=== PATIENT | female | born 1940 | race Caucasian/White ===

== ENCOUNTER → 2017-11-21 08:23 | Outpatient (BNVA) | payer MEDICARE, SELFPAY | PROVIDERS: Visit Provider Surgery | DX: Z12.11 Encounter for screening for malignant neoplasm of colon (principal); I10 Essential (primary) hypertension | CPT/HCPCS: 99213 ==

== ENCOUNTER 2017-12-08 06:53 | Day surgery (SDC) | payer MEDICARE, SELFPAY ==
--- NOTE | 2017-12-08 06:48 | W.COLOREPORT ---
Colonoscopy Report Date of procedure: 12/08/17 Pre-op diagnosis general: Screening Colonoscopy Post-op diagnosis procedure note: other (Rae-diverticulosis and internal hemorrhoids) Procedure: Colonoscopy Surgeon: Wanda Mckeon Anesthesia proc note operative: MAC (Isacc Galan CRNA) Estimated blood loss (mL): 0 Pathology: none sent Complications: None Disposition: same day Indications: Mrs. Cunningham is here for a screening colonoscopy. Her last colonoscopy was in 2007 and was normal. Risks, benefits and complications were reviewed in the office and in SDS. She had no questions and wished to proceed. Prep: Miralax/Dulcolax Procedure Start Time: 08:09 Procedure End Time: 08:36 Retraction Time: 13 minutes Findings: Rae diverticulosis and grade 1 internal hemorrhoids Procedure Description: After informed consent was obtained the patient was taken to the procedure room and placed in a left decubitous position. Monitors were applied and a time out was done. The patients name, date of , procedure, allergies to medications and metal in their body was reviewed. The patient was then sedated. Once sedated and comfortable a rectal exam was done. External exam was normal. Internal exam revealed a normal sphincter tone and no palpable masses. The scope was then introduced and retrofelexed. Grade 1 internal hemorrhoids were identified. The scope was then advanced to the cecum with some difficulty due to her diverticulosis. The TI and appendiceal orifice were identified. The prep was adequate. The scope was then slowly retracted over 13 minutes back into the rectum. The scope was removed and the patient was woken up and taken back to Same day surgery in stable condition. The patient tolerated the procedure well and there were no immediate complications. Follow up: The patient should not need any more scheduled Colonoscopies unless she develop changes in bowel habits or other new gastrointestinal complaints.
--- NOTE | 2017-12-08 06:51 | PDOC.DSDIS_ITS ---
Discharge Plan Disposition Patient Disposition: HOME Condition: Good Discharge Details Reason For Visit: Screening Colonoscopy Attending Provider: Wanda Mckeon Primary Care Provider: Tessa Mehta Home Meds and New Rx's Prescriptions: Continue multivitamin [Multi-Day] 1 EACH tablet 1 ea PO DAILY RF: 0 hydrochlorothiazide 50 MG tablet 50 mg PO DAILY RF: 0 meloxicam 15 MG tablet 15 mg PO DAILY RF: 0 ascorbic acid (vitamin C) [Vitamin C] 500 MG tablet 500 mg PO DAILY RF: 0 omeprazole [Prilosec] 20 MG capsule,delayed release(DR/EC) 20 mg PO DAILY RF: 0 zolpidem [Ambien] 5 MG tablet 10 mg PO HS RF: 0 triamcinolone acetonide 15 GM cream 15 gm Topical PRN PRNRF: 0 clotrimazole [Lotrimin AF] 24 GM cream 24 gm Topical PRN PRNRF: 0 omega-3 fatty acids-fish oil 1 EACH capsule 1 ea PO DAILY RF: 0 fluticasone 16 GM spray,suspension 16 gm NS PRN PRNRF: 0 acetaminophen 500 mg Capsule 500 mg PO Q6H PRNRF: 0 Discharge Instructions Instructions: Colonoscopy (DC), Diverticulosis (DC), Hemorrhoids (DC) Additional Instructions: Findings: Diverticulosis Follow up: as needed New medications: none Please call if you develop: fevers >101.5 Nausea or Vomiting Abdominal pain that is not transient 1. Because there will be medication in your system for the next 24 hours, you may feel a little sleepy. Your coordination will be affected. Therefore: a. Do not drive or operate dangerous equipment for 24 hours. b. Do not drink alcohol beverages for 24 hours (not even beer). c. Plan to go home and rest for the day. 2. Generally there are no restrictions on your activity after a day or so has gone by, but you may feel a bit fatigued for a few days. 3 After you arrive home you may have a light meal and return to a normal diet as you can tolerate it without feeling sick to your stomach. 4. After surgery, you may feel pain or discomfort. This should be only transient , but if it persists please contact your doctor. 5. If there are any questions regarding the findings of your procedure, please feel free to contact your doctor. 6. If you are unable to contact your doctor with a problem, contact the hospital at [phone]. 6. Continue all your regular medications unless directed otherwise. I understand the above instructions and have no questions. Signature of Patient or Responsible Adult Escort Date/Time Name of Responsible Adult Escort Signature of Nurse Date/Time Activity:: Activity as Tolerated Diet:: high fiber diet Discharge Orders Discharge Orders: Discharge Order (Routine); Ordered 12/08/17 Ordered By: Wanda Mckeon
[2017-12-08 07:00] VITALS: BP 162/101; PULSE 91; RESP 18; TEMP 37.1; O2SAT 98
[2017-12-08] MEDS: Lactated Ringers 1,000 ML 80 ML IV (07:30)
[2017-12-08 09:15] VITALS: BP 161/83; PULSE 79; RESP 16; TEMP 36.7; O2SAT 97
== END 2017-12-08 09:30 | disposition home or self-care (01) ==
LOC: SUR 06:53
PROVIDERS: PCP Physician Assistant Medical; Visit Provider Surgery
PROC: 0DJD8ZZ Inspection of Lower Intestinal Tract, Via Natural or Artificial Opening Endoscopic (ICD-10-PCS; CPT 45378; principal; 2017-12-08 08:15)
DX: Z12.11 Encounter for screening for malignant neoplasm of colon (principal); I10 Essential (primary) hypertension; K21.9 Gastro-esophageal reflux disease without esophagitis; K64.0 First degree hemorrhoids; K57.30 Diverticulosis of large intestine without perforation or abscess without bleeding
CPT/HCPCS: G0121

== ENCOUNTER 2018-03-17 21:53 | Outpatient (REF) | payer MEDICARE, SELFPAY ==
[2018-03-17 22:46] LABS: BUN 27 mg/dL (7-18); CREATININE 0.95 mg/dL (0.55-1.02); Estimated GFR 57.35 (mL/min/1.73m2)
== END 2018-03-17 22:13 ==
LOC: LBN 21:53
PROVIDERS: PCP Physician Assistant Medical; Visit Provider Otolaryngology Otolaryngology/Facial Plastic Surgery
DX: Z01.812 Encounter for preprocedural laboratory examination (principal); R69 Illness, unspecified
CPT/HCPCS: 84520; 82565

== ENCOUNTER 2018-03-24 01:07 | Outpatient (CLI) | payer MEDICARE, SELFPAY ==
[2018-03-24] MEDS: Gadoterate meglumine 20 ML VIAL 16 ML IVP (09:53)
--- NOTE | 2018-03-24 10:10 | DI.MRI_ITS ---
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 No priors. There is prominence of the ventricles and sulci consistent with the patient's age. There are areas of increased signal seen in the white matter on the T 2 and FLAIR images consistent with small vessel ischemic disease. The diffusion weighted images show no evidence of an acute infarct. No intracranial hemorrhage is seen. No intracranial mass is seen. No enhancing lesions are seen within the brain. Specifically no mass or abnormal enhancement is seen in the region of the internal auditory canals or cerebellar pontine angles. There is no acute midline shift or mass effect. The ventricles are intact. The basilar cisterns are patent. There is a normal flow void seen in the [employer]. IMPRESSION: 1. No evidence of an intracranial mass or enhancing lesion. 2. Cerebral atrophy and small vessel ischemic disease consistent with the patient's age.
== END 2018-03-24 01:27 ==
PROVIDERS: PCP Physician Assistant Medical; Visit Provider Otolaryngology Otolaryngology/Facial Plastic Surgery
DX: H90.5 Unspecified sensorineural hearing loss (principal); H93.19 Tinnitus, unspecified ear; G31.1 Senile degeneration of brain, not elsewhere classified
CPT/HCPCS: 70553

== ENCOUNTER 2018-07-14 16:53 | Inpatient (IN) | payer MEDICARE, SELFPAY ==
--- NOTE | 2018-07-14 11:22 | ROE_ITS ---
DATE OF PROCEDURE: July 14, 2018 PREOPERATIVE DIAGNOSIS: Peritonitis and ruptured jejunal diverticulum. POSTOPERATIVE DIAGNOSIS: Ruptured jejunal diverticulum and mesenteric abscess. SURGEON: Elvi Maria D.O. ELECTROPHYSIOLOGY SCIENTIST: Alirio Calhoun ANESTHESIA: General. ESTIMATED BLOOD LOSS: 50 cc's DRAINS: No drain was placed. SPECIMEN: Small bowel. CONDITION: The patient tolerated the procedure well without complications, transferred to the recovery room in stable condition. INDICATION FOR PROCEDURE: Ms. Cunningham is a 77-year-old female who presents to the ER with peritonitis. No signs of sepsis or shock. She did have a CT scan without oral contrast, which did show a perforated diverticulum with significant surrounding inflammatory changes; no abscess. She does have significant sigmoidal diverticula, but there is no sign of infection from these. I did review the CT with the reading radiologist, and he had reviewed it as well with another colleague to ensure accuracy. On examining the patient, she does have diffuse significant peritonitis. We discussed her diagnosis and the treatment is operative management with small bowel resection. We discussed what she could expect during the surgery, her recovery time and risks. Risks, including infection, pneumonia, blood clots, anastomotic failure, ventral hernia, complications from anesthesia - because she is a little bit older there's always a risk for CT or CVA or other unforetold complications. The patient is in agreement. DESCRIPTION OF PROCEDURE: The patient is brought to the operative suite and placed in the supine position. Anesthesia is administered per the Department of Anesthesia. We had tried to place an epidural, but this was unsuccessful because of significant arthritis of the spine. General anesthesia is then placed. Patient has good IV access. She received preop antibiotics. NG tube and Kamara catheter are placed. She was prepped and draped in the usual sterile fashion using a ChloraPrep scrub solution. A time-out is performed. A #10 blade is used to make a 3-inch midline incision from just below the umbilicus. She has had a remote tubal ligation in the past. Electrocautery was used to provide hemostasis and dissect down to the deeper tissues. Once the muscle is encountered, it is split in the midline. The peritoneum is elevated and entered sharply. There is no free air noted. There is a very small amount of seropurulent drainage. She does have a few omental adhesions from her previous tubal; these are taken down with cautery. The abdomen is explored. The liver is palpated and there is no sign of metastatic disease. NG tube is in good position. She has a significant amount of stool in the transverse colon. She has severe amount of diverticula within the sigmoid colon. The rectum and sigmoid colon is directly visualized. The colon is pink and healthy. There is no edema. There is no inflammation or purulent draining in this area. There is no sign of infection that would be ensuing from the colon. The appendix is normal. Ovaries and uterus are atrophic. The small bowel is then run from the ligament of Treitz to the cecum. At about 15 cm in the jejunum she does have an area of acute inflammatory change with redness and swelling within the small bowel but particularly within the mesentery and there does appear to be a small abscess in the mesentery. Again there is some localized purulent drainage and purulent membrane around the small bowel. About 5 cm distal from the first jejunal diverticula, she has a second jejunal diverticula. This second jejunal diverticula does not appear to be ruptured or infected, but is removed as well. it is decided to remove both diverticula. The omentum is packed away; the small bowel is isolated. A rent is placed in the mesentery proximally and distally. The ROSALINE is placed and fired to incise the small bowel. The mesentery is then ligated using the LigaSure. She does have some enlarged nodes within the mesentery. Again there was a small abscess within the mesentery as well; this was excised along with the mesentery. The specimen is passed off the field. The proximal and distal limbs of the jejunum were brought together. Again they are isolated on the field with towels to prevent gastric contamination. The antimesenteric ends l are brought together. The tips of the sutures on the staple line are excised and a limb of the ROSALINE is placed on either end and they are brought together and fired, creating anastomosis. The ROSALINE is removed. The mucosa of the remaining defect is then elevated with Allis' and the anastomosis was completed with a TA-60. All instruments and devices involving creating the anastomosis are passed off the field. Towels are removed. Sponges are removed. New towels are placed. Gloves are changed by all the participants involved. The staple line ends are then over-sewn/reinforced with #4-0 Prolene. The mesenteric defect is approximated with interrupted sutures of #3-0 Vicryl. There is no bleeding or enteric leakage from the staple line. There is a good lumen palpable. The bowel is pink and healthy and no signs of compromise. The abdomen again is then copiously irrigated with a liter of saline. Again there is no other sign of etiology for infection or malignancy within the abdomen. Sponge and needle counts are correct. All instruments are removed. There is no bleeding noted in the suture or staple at the time of closure. We did put two pieces of Interceed directly under the incision, but not in contact with the anastomosis. The peritoneum and fascia was elevated with Kochers and closed with #0 Vicryl in a running fashion. The fat pad is irrigated. The deep tissue is approximated with #3-0 Vicryl in a running fashion, and the skin was approximated with malini. Sterile dressings applied. The patient tolerated the procedure well without complication and transferred to the recovery room in stable condition. cc: Neo MeltonP.
[2018-07-14 16:57] VITALS: BP 151/85; PULSE 114; RESP 18; TEMP 36.7; O2SAT 96
--- NOTE | 2018-07-14 17:04 | W.ED.GENAD ---
Discharge Plan Disposition Patient Disposition: [facility] INPATIENT Condition: Serious Discharge Details Chief Complaint: Abd Prob Clinical Impression: Diverticulitis of jejunum, Perforation of small intestine due to diverticulitis Admit Date/Time: 07/15/18 00:40 Admit Provider: Elvi Maria Attending Provider: Elvi Maria Primary Care Provider: Dotty Estrella ED Provider: Mackenzie Neves Discharge Data Discharge Date/Time-TO BE ENTERED AT DEPARTURE: 07/14/18 22:19 Medical Decision Making 1710: Patient is 77-year-old female presenting today with chief complaint of abdominal pain. She reports it came on suddenly at 1530 this afternoon. Reports that she was sedentary at the time of onset. States that it came on suddenly and that her pain is sharp. She states the central abdomen ranging from the xiphoid process to the umbilicus is area of maximal discomfort but states the pain can radiate laterally. Denies any trauma. States that she had a small meal of spaghetti at length today and is feeling typical. Normal bowel movement urinary habits as far today. No fevers or chills. Surgical history significant for tubal ligation. No other abdominal surgeries. She denies any chest pain or shortness of breath. Pain does not radiate into the back. On exam, patient appears very uncomfortable, she is tachypneic, tachycardic. Patient is in a normal sinus rhythm to auscultation her lungs are clear. Patient has peritoneal findings with guarding and rebound tenderness fairly diffusely about the abdomen. I am unable to palpate any pulsatile mass but I am concerned with possible dissection given the sudden onset of symptoms. Advised to considered other vascular injury including clot. Patient does have known history of diverticulosis but is never had diverticulitis. Given the sudden onset of findings less likely. Plan to scan the chest, abdomen, pelvis. No personal history of cardiac disease. Patient has a history of mitral insufficiency, hypertension, hyperlipidemia, GERD, diverticulosis, depression. Denies any recent travel. No recent antibiotic EKG reviewed by Dr. Uribe. Patient is tachycardic with a rate of 113, sinus rhythm. 175: Reviewed CT, no evidence of large dissection. Do not see any free air. Awaiting read. Labs significant for potassium of 3.0, will repolenish this. Magnesium low at 1.4. Troponin <0.02. Replenish magnesium and potassium. Shortly after this, patient was nauseated. Will give Zofran. Consulted with radiologist, they advised it appears to be diverticulitis with perforation in the jejunum. Consult with surgeon who will review the images and consult the radiologist. At this point, I will begin treatment with antibiotic. Surgeon evaluated and will admit to the operating room. All the patient's questions and concerns were addressed HPI General Mode of arrival: wheelchair. Date/Time Provider Initiated Documentation: 07/14/18 17:03. Limitations to Documentation: no limitations. Information obtained by: patient, family and RN notes reviewed. History of Present Illness 77 year old F presents to the emergency department with the chief complaint of abdominal pain, described as severe, with intensity rated at 10. Quality is described as stabbing, and is localized to the abdomen. Patient abdomen (pain initiates between umbilicus and xyphoid, radiates laterally). Patient started experiencing this hour(s) and it has been constant. No relieving factors improve symptom(s), No exacerbating factors reported . Patient notes loss of appetite and nausea/vomiting; denies chest pain, fever/chills, headaches, rash, shortness of breath and weakness. Patient did receive the following treatments prior to arrival, none Related Data Home Medications Medication Instructions Recorded Confirmed ascorbic acid (vitamin C) [Vitamin 500 mg PO DAILY 06/01/14 07/14/18 C] hydrochlorothiazide 50 mg PO DAILY tab-cap 06/01/14 07/14/18 meloxicam 15 mg PO DAILY tab-cap 06/01/14 07/14/18 multivitamin [Multi-Day] 1 ea PO DAILY 06/01/14 07/14/18 omeprazole [Prilosec] 20 mg PO DAILY tab-cap 06/01/14 07/14/18 zolpidem [Ambien] 10 mg PO HS 06/01/14 07/14/18 fluticasone propionate 16 gm NS PRN PRN 12/03/16 07/14/18 omega-3 fatty acids-fish oil 1 ea PO DAILY NS 09/02/17 07/14/18 triamcinolone acetonide 15 gm TOPICAL PRN PRN script NS 09/02/17 07/14/18 Allergies Allergy/AdvReac Type Severity Reaction Status Date / Time codeine phosphate AdvReac nausea/vomi Verified 07/14/18 17:54 [From Tylenol-Codeine] ting metronidazole [From Flagyl] AdvReac nausea Verified 07/14/18 17:54 sulfamethoxazole AdvReac nausea/vomi Verified 07/14/18 17:54 [From Bactrim] ting/diarrh ea trimethoprim [From Bactrim] AdvReac nausea/vomi Verified 07/14/18 17:54 ting/diarrh ea tdap AdvReac complete Uncoded 07/14/18 17:54 body ache General Stated Complaint: Abd Prob PO: 3 Review of Systems Constitutional Reports as per HPI, Denies chills, Denies fatigue, Denies fever(s) and Denies headache(s) ENT Denies headache(s) Cardiovascular Reports as per HPI, Denies chest pain, Denies dyspnea and Denies dyspnea on exertion Respiratory Reports as per HPI, Denies cough, Denies pain on inspiration, Denies pain with cough, Denies dyspnea and Denies dyspnea on exertion Gastrointestinal Reports as per HPI, Denies change in stool character, Denies heartburn, Denies nausea and Denies vomiting Musculoskeletal Reports as per HPI and Denies back pain Integumentary/Breasts Reports as per HPI and Denies rash Neurologic Reports as per HPI and Denies headache(s) Endocrine Denies fatigue PFSH Medical History Abnormal CT of spine (Acute) Perforation of small intestine due to diverticulitis (Acute) Diverticulitis of jejunum (Acute) Degenerative joint disease Depression Diverticulosis GERD (gastroesophageal reflux disease) Hyperlipemia Hypertension Insomnia Mitral valve insufficiency Surgical History Ligation of fallopian tube Replacement of total knee joint bunionectomy gangilion cyst removal of ovary Family History Mother Personal history of malignant neoplasm Father Personal history of malignant neoplasm Social History Smoking/Tobacco Use Status: Never Alcohol Intake: current Alcohol Intake frequency: 0-2 drinks per day Drug use: Never Substance use type: does not use Do you feel safe at home: Yes Do you feel safe in your relationship?: Yes Exam Const General: cooperative, well developed, well groomed, acute distress moderate (patient appears uncomfortable) and ill appearing acutely Nutritional Appearance: average body habitus and well nourished Orientation: alert and awake [facility] Head: normal to inspection Mouth: moist mucous membranes Resp Effort & Inspection: normal respiratory effort, able to speak in complete sentences and no respiratory distress Auscultation: clear to auscultation bilaterally, no rales, no rhonchi and no wheezes Cardio Rate: regular rate Rhythm: regular rhythm Heart Sounds: S1 normal and S2 normal GI Inspection: abnormal to inspection, no abdominal wall ecchymosis, no edema, distended, no incisions, no large pannus, no visible herniation and no visible pulsation Palpation: no hepatosplenomegaly, no aortic enlargement, guarding (diffuse, worse in epigastric), no hernias, no masses, no pulsatile masses, not rigid, tender (diffuse, worse epigastric and periumbilical) with rebound tenderness; Monroe's sign negative and No ascites Percussion: tympanic to percussion Auscultation: hypoactive bowel sounds Back/Spine/Pelvis Back: no CVA tenderness Skin General skin exam: no rashes or lesions noted Trauma: no lacerations or abrasions Neuro General: alert and awake Cognition: normal cognition Speech: speech normal Gait: normal gait Extrem General: no pedal edema and no calf tenderness Psych Appearance: grossly normal and well kempt Mental Status: mental status grossly normal Speech and Movement: speech and movement normal Course Vital Signs Temperature 36.7 C 07/14/18 16:57 Pulse 114 H 07/14/18 16:57 Respiratory Rate 18 07/14/18 16:57 Blood Pressure 151/85 H 07/14/18 16:57 Pulse Oximetry 96 07/14/18 16:57 Temperature 36.7 C 07/14/18 16:57 Temperature Source Skin 07/14/18 16:57 Pulse 114 H 07/14/18 16:57 Respiratory Rate 18 07/14/18 16:57 Blood Pressure 151/85 H 07/14/18 16:57 Blood Pressure Position Sitting 07/14/18 16:57 Pulse Oximetry 96 07/14/18 16:57 Oxygen Delivery Method Room Air 07/14/18 16:57 Oxygen Flow Rate 0 07/14/18 16:57 Pain Level 10 07/14/18 16:57
--- NOTE | 2018-07-14 17:12 | DI.CT_ITS ---
SYMPTOM/DIAGNOSIS: CENTRAL ABD PAIN CTA CHEST/ABDOMEN AND PELVIS: CT angiography was performed with multi slice acquisition and multi planar and 3D reconstruction. CT angiogram of the chest, abdomen and pelvis was performed with a bolus infusion of 100 cc's of Omnipaque 350. Note is made of possible sclerotic lesion of the T 6 vertebral body, no previous images available for comparison. Metastatic disease not excluded. Correlation with thoracic spine MRI suggested. No other focal bony lesion identified. The lungs are clear. No pleural effusion. No evidence of pulmonary embolic disease. Thoracic aorta is of normal diameter and there is no evidence of thoracic aortic dissection. No mediastinal or hilar adenopathy. No axillary or supraclavicular adenopathy. Abdominal aorta is of normal diameter. There is moderate atheromatous calcification. The celiac trunk, SMA, renal arteries and JAILENE are patent with no significant stenosis identified. There is probable hepatic steatosis. Otherwise liver, spleen and pancreas are unremarkable. Gallbladder and bile ducts are CT normal. Appendix is normal. No evidence of bowel obstruction. There is moderate free fluid in the pelvis. There is an abnormal loop of what appears to be jejunum with associated fat edema, wall thickening and dilatation. Jejunal diverticuli versus walled off perforations are noted. No free intraperitoneal air is seen. Common internal and external iliac arteries are of normal diameter and patent. Urinary bladder is unremarkable. 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 CONCLUSION: Findings raising the possibility of jejunal diverticulitis with possible walled off perforation. Appropriate follow up studies requested. Note is made of hepatic steatosis. Indeterminate T 6 vertebral body blastic lesion, metastasis not excluded. Correlation with thoracic spine MRI recommended.
[2018-07-14] MEDS: Normal Saline 1,000 ML 500 ML IV ×2 (17:17→20:23)
[2018-07-14 17:24] LABS: Abs Immature Grans 0.03 k/cumm (0.0-0.09); Absolute Eosinophil Count 0.12 k/cumm (0.0-0.7); Absolute Monocyte Count 0.45 k/cumm (0.11-0.7); Basophils % 0.2; Eosinophils % 0.9; HCT 42.8 % (36.0-46.0); HGB 14.7 g/dL (12.0-15.5); Immature Grans % 0.2; Lymphocytes % 4.9; Mean Corp. HGB Concentration 34.3 g/dL (32.0-36.0); Mean Corpuscular Hemoglobin 32.7 pg (27.0-33.0); Mean Corpuscular Volume 95.3 fL (80-95); Monocytes % 3.5; Neutrophils % 90.3; Platelet Count 178 x1000/uL (130-400); RBC 4.49 m/cumm (4.00-5.20); RBC Distribution Width 13.5 % (11.7-14.6); White Blood Cell Count 12.96 k/cumm (4.4-10.8)
[2018-07-14 17:34] LABS: Absolute Basophil Count 0.03 k/cumm (0.0-0.2); Absolute Lymphocyte Count 0.64 k/cumm (1.2-3.4)
[2018-07-14 17:38] LABS: ALT 52 U/L (12-78); AST 33 U/L (15-37); Albumin 4.3 g/dL (3.4-5.0); Alkaline Phosphatase 101 U/L (46-116); Anion Gap 9.9 mmol/L (3-11); BUN 32 mg/dL (7-18); Bilirubin, Total 0.8 mg/dL (0.2-1.0); CO2 28.1 mmol/L (21.0-32.0); CREATININE 0.89 mg/dL (0.55-1.02); Calcium 9.8 mg/dL (8.5-10.1); Chloride 98 mmol/L (98-107); Glucose 186 mg/dL (70-100); Lipase 169 U/L (73-393); Magnesium 1.4 mg/dL (1.8-2.4); Sodium 136 mmol/L (136-145); Total Protein 7.6 g/dL (6.4-8.2)
[2018-07-14] MEDS: Omnipaque 350 MG/ML 100 ML BTL IJ (17:43)
[2018-07-14 17:48] LABS: Troponin I < 0.02 ng/mL (0.00-0.06)
[2018-07-14 18:27] LABS: Bilirubin Negative (Negative); Blood Trace-intact (Negative); Clarity Clear; Glucose Negative (Negative); Ketones Negative (Negative); Leukocyte Esterase Trace (Negative); Nitrite Negative (Negative); Urobilinogen 0.2 EU/dL (Up TO 0.2)
[2018-07-14 18:38] LABS: Bacteria Negative HPF (Negative); C & S Indicated? Yes; Casts Negative LPF (Negative); Crystals Negative HPF (Negative); Epithelial Cells Negative HPF (Negative); Mucus Negative (Negative); Other Cells Negative (Negative); RBC Negative (0-2)
--- NOTE | 2018-07-14 19:26 | DI.VRAD_ITS ---
Addendum created by Kan Cohen MD on 07/14/2018 8:53:28 PM EDT The findings from the CT were personally discussed with Dr. Grant the Surgeon extrusion press supervisor at 20:47 EST. Addendum created by Kan Cohen MD on 07/14/2018 7:37:16 PM EDT THIS REPORT CONTAINS FINDINGS THAT MAY BE CRITICAL TO PATIENT CARE. The findings were verbally communicated via telephone conference with LINDSAY GIBBONS at 7:37 PM EDT on 07/14/2018. The findings were acknowledged and understood. Initial report created on 07/14/2018 7:25:45 PM EDT EXAM: CT Angiography Chest With Contrast EXAM DATE/TIME: 07/14/2018 5:13 PM CLINICAL HISTORY: 77 years old, female; Other: Central abdomen; Abdominal pain; Acute TECHNIQUE: Imaging protocol: Axial computed tomographic angiography images of the chest with intravenous contrast using CT angiography protocol. Coronal and sagittal reformatted images were created and reviewed. 3D rendering: MIP reconstructed images were created and reviewed. COMPARISON: No relevant prior studies available. FINDINGS: Pulmonary arteries: There are no intraluminal filling defects to suggest acute pulmonary embolus. Aorta: Aorta demonstrates mild atherosclerotic calcification. No evidence of aortic dissection or aortic aneurysm. Lungs: There is mild bibasilar atelectasis. Pleural space: Normal. No pneumothorax. No pleural effusion. Heart: Normal. No cardiomegaly. No pericardial effusion. Lymph nodes: Unremarkable. No enlarged lymph nodes. Bones/joints: Degenerative changes of the thoracic spine without acute osseous abnormality. Blastic changes in the posterior aspect of the T6 vertebral body. Soft tissues: Unremarkable. IMPRESSION: 1. There are no intraluminal filling defects to suggest acute pulmonary embolus. 2. Possible blastic changes to the T6 vertebral body which may represent metastatic disease. Followup MRI of the thoracic spine is recommended if not clinically contraindicated. EXAM: CT Angiography Abdomen and Pelvis With Contrast EXAM DATE/TIME: 07/14/2018 5:13 PM CLINICAL HISTORY: 77 years old, female; Other: Central abdomen; Abdominal pain; Acute TECHNIQUE: Imaging protocol: Axial computed tomographic angiography images of the abdomen and pelvis with intravenous contrast material. Coronal and sagittal reformatted images were created and reviewed. 3D rendering: MIP reconstructed images were created and reviewed. COMPARISON: No relevant prior studies available. FINDINGS: Mediastinum: There is a small hiatal hernia. VASCULATURE: Aorta: No aortic aneurysm. No aortic dissection. Celiac trunk and mesenteric arteries: No occlusion or significant stenosis. Renal arteries: No occlusion or significant stenosis. Right iliac arteries: No occlusion or significant stenosis. Left iliac arteries: No occlusion or significant stenosis. ABDOMEN: Liver: There is a diffuse decrease in hepatic parenchymal density, consistent with fatty infiltration. Gallbladder and bile ducts: Unremarkable. No calcified stones. No ductal dilation. Pancreas: Unremarkable. No mass. No ductal dilation. Spleen: Unremarkable. No splenomegaly. Adrenals: Unremarkable. No mass. Kidneys and ureters: Unremarkable. No solid mass. No hydronephrosis. Stomach and bowel: There is a focally dilated loop of proximal jejunum with adjacent induration and inflammatory changes in the mesentery with 2 probable adjacent diverticulum versus walled off perforations. In addition adjacent are too small small collections of air not within the small bowel consistent with perforation. There is scattered colonic diverticulosis without evidence of colonic diverticulitis. Appendix: No evidence of appendicitis. PELVIS: Bladder: Unremarkable. No mass. Reproductive: Unremarkable as visualized. ABDOMEN and PELVIS: Intraperitoneal space: There is a small amount of free fluid present in the pelvis. Bones/joints: Degenerative changes of the lumbar spine without acute osseous abnormality. Soft tissues: See Stomach And Bowel Finding. Lymph nodes: Unremarkable. No enlarged lymph nodes. IMPRESSION: 1. Findings consistent with perforated small bowel diverticulitis (jejunum) as described above. 2. Fatty infiltration of the liver. Recommend correlation with LFTs. Dictated and Authenticated by: Kan Cohen MD. Ordering:DELFINA Mann MD
[2018-07-14] MEDS: Magnesium Oxide 400 MG TAB PO (20:22)
[2018-07-14] MEDS: Potassium Chloride 20 MEQ TABCR 40 MEQ PO (20:22)
[2018-07-14] MEDS: Ondansetron 4 MG/2 ML VIAL IVP (20:23)
[2018-07-14] MEDS: PIPERACILLIN/TAZO 3.375 GM in Normal Saline 50 ML IVPB (20:23)
[2018-07-14 21:14] VITALS: BP 126/66; PULSE 91; RESP 18; O2SAT 95
--- NOTE | 2018-07-14 21:16 | W.PM.HP.N ---
Date of service: 07/14/18 Time of Service: 21:26 Assessment and Plan (1) Diverticulitis of jejunum: Current visit: Yes Status: Acute (2) Perforation of small intestine due to diverticulitis: Current visit: Yes Status: Acute pt has difuse diverticiulits. no sepsis at this time I did d/w radiology- she does have a perforated diverticulum of the jejunum at about 20-25cm from treitz. THere is air in the mesentery adn signif inflammatory changes. There is sm. amount of fluid in the pelvis. no abscesses. Her only abdominal sx is a remote tubal. Informed consent is obtained for the procedural (explained in simple layman's terms that the pt. and/or family could understand) explaining risks vs benefits and alternatives to the procedure and consequences if we do not do the procedure. Risks include but are not limited to: bleeding, infections, pneumonia, blood clots/DVT/PE, anesthesia (aspiration, damage to teeth/airway/OH/CVA//prolonged mechanical ventilation/PTX/IV infections), damage to bowel, bladder, blood vessels, ureters. Damage to solid organs requiring removal. Infertility. Leakage from anastomosis requiring colostomy/ Wound infections requiring further surgery. Loss of function of limb/ext. (motor or sensory). Scarring and disfigurement. Subsequent bowel obstructions from scar tissue. pt needs to undergo surgery and resection. We will do epidural for pain control we will keep her overnight in ICU for monitoring abx and supportive care she did receive zosyn in ED -will do MRI of spnie as outpt. History of Present Illness Consults Consult date: 07/14/18 Requesting physician: Mackenzie Neves Narrative: pt developed pretty significant abdominal pain this afternoon. She denies any falls/trauma/unusual activity. + N/v. pain has been very sharp and constant. + Fever. no diarrhea. no travel/no recent illness. no prior hx of anything like this. She has colonic divertic on CE. SHe's had diverticulitis in the past- this is not similar and much worse. it is constant and not resolving pain. pt looks very uncomfortable and acutely ill. no signs of sepsis at this time. Review of Systems Review of Systems All systems reviewed & are unremarkable except as noted in HPI and below Constitutional Reports chills and Reports fever(s) Eyes Comments: glasses ENT Comments: mucus membranes are dry. dentures+ Cardiovascular Reports chest pain, Denies chest pain with activity, Denies diaphoresis, Denies syncope and Denies pedal edema Comments: htn controlled w/ meds no prior mi/cva pt is pretty active and does not get chest pain Respiratory Comments: no ashtma/COPD/CHF Gastrointestinal Reports abdominal pain, Reports nausea and Reports vomiting Comments: + peritonitis hx of diverticulitis + n/v. no constipation or diarrhea no hernias remote hx of tubal no prior abdominal sx hx of divertiula and diverticulitis Genitourinary Comments: cl yellow urinre whle in ED Musculoskeletal Reports arthralgias Comments: changes to joints from chronic OA- moderate poss malig in vertebral body noted on CT. Neurologic Denies syncope Endocrine Comments: no hx of DM Hematologic/Lymphatic Comments: no blood thinners. takes mobic PFSH Medical History Abnormal CT of spine (Acute) Perforation of small intestine due to diverticulitis (Acute) Diverticulitis of jejunum (Acute) Degenerative joint disease Depression Diverticulosis GERD (gastroesophageal reflux disease) Hyperlipemia Hypertension Insomnia Mitral valve insufficiency Surgical History Ligation of fallopian tube Replacement of total knee joint bunionectomy gangilion cyst removal of ovary Family History Mother Personal history of malignant neoplasm Father Personal history of malignant neoplasm Social History Smoking/Tobacco Use Status: Never Alcohol Intake: current Alcohol Intake frequency: 0-2 drinks per day Drug use: Never Substance use type: does not use Do you feel safe at home: Yes Do you feel safe in your relationship?: Yes Meds Home Medications Medication Instructions Recorded Confirmed Type ascorbic acid (vitamin C) [Vitamin 500 mg PO DAILY 06/01/14 07/14/18 History C] hydrochlorothiazide 50 mg PO DAILY tab-cap 06/01/14 07/14/18 History meloxicam 15 mg PO DAILY tab-cap 06/01/14 07/14/18 History multivitamin [Multi-Day] 1 ea PO DAILY 06/01/14 07/14/18 History omeprazole [Prilosec] 20 mg PO DAILY tab-cap 06/01/14 07/14/18 History zolpidem [Ambien] 10 mg PO HS 06/01/14 07/14/18 History fluticasone propionate 16 gm NS PRN PRN 12/03/16 07/14/18 History omega-3 fatty acids-fish oil 1 ea PO DAILY NS 09/02/17 07/14/18 History triamcinolone acetonide 15 gm TOPICAL PRN PRN script NS 09/02/17 07/14/18 History Allergies Allergy/AdvReac Type Severity Reaction Status Date / Time codeine phosphate AdvReac nausea/vomi Verified 07/14/18 17:54 [From Tylenol-Codeine] ting metronidazole [From Flagyl] AdvReac nausea Verified 07/14/18 17:54 sulfamethoxazole AdvReac nausea/vomi Verified 07/14/18 17:54 [From Bactrim] ting/diarrh ea trimethoprim [From Bactrim] AdvReac nausea/vomi Verified 07/14/18 17:54 ting/diarrh ea tdap AdvReac complete Uncoded 07/14/18 17:54 body ache Exam Const General: healthy appearing and in distress Nutritional Appearance: average body habitus and well nourished Orientation: alert, awake and oriented x3 HENMT Head: normal to inspection Ears: hearing grossly normal bilaterally Mouth: moist mucous membranes Teeth and gingiva: dentition normal, fair dentition and multiple restorations Chest Chest: normal inspection of the chest Resp Effort & Inspection: normal respiratory effort and able to speak in complete sentences Auscultation: clear to auscultation bilaterally, rales, rhonchi and wheezes Cardio Rate: regular rate Rhythm: regular rhythm GI Inspection: distended and scar Palpation: soft, firm, guarding and tender Auscultation: hypoactive bowel sounds Other: + diffuse peritonitis hx of diverticulitis + n/v. no constipation or diarrhea no hernias remote hx of tubal no prior abdominal sx hx of divertiula and diverticulitis Skin General skin exam: no rashes or lesions noted Other: no breakdown Extrem General: normal to inspection and no clubbing, cyanosis or edema Other: no breakdown Results Labs : 07/15/18 06:23 07/16/18 06:15 Laboratory Results - last 24 hr 07/14/18 07/14/18 07/14/18 17:15 17:15 18:09 WBC 12.96 H RBC 4.49 Hgb 14.7 Hct 42.8 MCV 95.3 H MCH 32.7 MCHC 34.3 RDW 13.5 Plt Count 178 MPV 10.0 Immature Gran % 0.2 Neutrophils % 90.3 Lymphocytes % 4.9 Monocytes % 3.5 Eosinophils % 0.9 Basophils % 0.2 Absolute Neutrophils 11.70 H Absolute Lymphocytes 0.64 L Absolute Monocytes 0.45 Absolute Eosinophils 0.12 Absolute Basophils 0.03 Sodium 136 Potassium 3.0 L Chloride 98 Carbon Dioxide 28.1 Anion Gap 9.9 BUN 32 H Creatinine 0.89 Estimated GFR/1.73 m2 >= 60.00 Glucose 186 H Calcium 9.8 Magnesium 1.4 L Total Bilirubin 0.8 AST 33 ALT 52 Alkaline Phosphatase 101 Troponin I < 0.02 Total Protein 7.6 Albumin 4.3 Lipase 169 Urine Color Yellow Urine Clarity Clear Urine pH 7.0 Ur Specific [place] 1.010 Urine Protein Negative Urine Ketones Negative Urine Blood Trace-intact H Urine Nitrite Negative Urine Bilirubin Negative Urine Urobilinogen 0.2 Ur Leukocyte Esterase Trace H Urine RBC Negative Urine WBC 3-5 Ur Epithelial Cells Negative Urine Crystals Negative Urine Bacteria Negative Urine Casts Negative Urine Mucus Negative Urine Other Negative Ur Culture Indicated? Yes Urine Glucose Negative Last Vital Signs Temp 36.7 C 07/14/18 16:57 Pulse 114 H 07/14/18 16:57 Resp 18 07/14/18 16:57 BP 151/85 H 07/14/18 16:57 Pulse Ox 96 07/14/18 16:57
--- NOTE | 2018-07-14 21:16 | NUR.NOTE ---
Nursing Note: Pt up to bedside commode
[2018-07-14 22:12] VITALS: BP 152/64; PULSE 106; RESP 20; O2SAT 94
[2018-07-14 22:26] VITALS: BP 152/64; PULSE 106; RESP 20; O2SAT 94
--- NOTE | 2018-07-14 23:36 | BOWEL_PTH ---
PATIENT: Susanna Cunningham LOC: [place] Ho#:[id number] AGE/SX: 77/F ROOM: RE07/15/[address]: Chika Elizabeth : 1940 BED: A DIS: 07/18/2018 SPEC #: [id number] RECD: 07/15/18 12:58 STATUS: REBEKA REQ #: [id number] JENNIFER: 07/14/18 23:[address]: Elvi Maria DEPT: Surgical Specimen RECD BY: Malgorzata Bender ENTERED: 07/15/18 12:59 SP TYPE: Bowel OTHR DR: Dotty Estrella Tissues: 1 - BOWEL RESECTION(OTHER) Procedures: GROSS AND MICRO LEVEL 5 Comments: [id number]
[2018-07-14] MEDS: Lactated Ringers 1,000 ML 80 ML IV (23:50)
[2018-07-15] VITALS (57 sets, daily range): BP systolic 96–165; BP diastolic 42–74; PULSE 71–90; RESP 12–26; TEMP 36.7–37.4; O2SAT 91–99
--- NOTE | 2018-07-15 00:51 | W.PM.OP ---
Date of service: 07/15/18 Time of Service: 00:52 Operative Note DATE OF PROCEDURE: 07/15/18 PRE-OP DIAGNOSIS: peritonitis/perforated jejunum w/ micro abscess POST-OP DIAGNOSIS: same PROCEDURE: ex lap jejunal resection and anastomosis significant diverticulum in sigmoid- no sign of sigmoid diverticulitis. no masses. No sign of other sources for infection other than jejunum. No signs of malignancy in the abdomen SURGEON: Elvi Maria WASH DRILLER: Tl Cat ANESTHESIA: GETA ESTIMATED BLOOD LOSS: 50 PATHOLOGY: other COMPLICATIONS: None Patient was transported to: PACU Patient's condition: stable Procedure Description: dictated
--- NOTE | 2018-07-15 00:55 | ROE_ITS ---
Date of service: 07/15/18 Time of Service: 00:52 Operative Note DATE OF PROCEDURE: 07/15/18 PRE-OP DIAGNOSIS: peritonitis/perforated jejunum w/ micro abscess POST-OP DIAGNOSIS: same PROCEDURE: ex lap jejunal resection and anastomosis significant diverticulum in sigmoid- no sign of sigmoid diverticulitis. no masses. No sign of other sources for infection other than jejunum. No signs of malignancy in the abdomen SURGEON: Elvi Maria GIRLS SWIMMING COACH: Tl Cat ANESTHESIA: GETA ESTIMATED BLOOD LOSS: 50 PATHOLOGY: other COMPLICATIONS: None Patient was transported to: PACU Patient's condition: stable Procedure Description: dictated
--- NOTE | 2018-07-15 01:06 | PGE_ITS ---
Date of Service Date of service: 07/15/18 Time of Service: 01:03 Subjective Interval history since last seen: pt drowsy but arousable in PACU. Min cl yellow from NGT No eye pain/redness edentulous no chest pain or SOB no EKG changes in OR L: CTA b/l C: NSR A: dressings C/D/I LE: no open wounds Cl yellow urine 100cc out in OR no drains 50cc blood loss pt did well and tolerated procedure well will admit to ICU for close cardiac monitoring blood work in am start lovenox in 12 hrs protonix Zosyn routine post op care and monitor for infection colon was examined and no sign of colonic perforated divertic signif sigmoidal diverticular dx Objective Objective Clinical Data: Abnormal lab results 07/14/18 07/14/18 07/14/18 Range/Units 17:15 17:15 18:09 WBC 12.96 H (4.4-10.8) k/cumm MCV 95.3 H (80-95) fL Absolute Neutrophils 11.70 H (1.2-6.7) k/cumm Absolute Lymphocytes 0.64 L (1.2-3.4) k/cumm Potassium 3.0 L (3.5-5.1) mmol/L BUN 32 H (7-18) mg/dL Glucose 186 H (70-100) mg/dL Magnesium 1.4 L (1.8-2.4) mg/dL Urine Blood Trace-intact H (Negative) Ur Leukocyte Esterase Trace H (Negative) Vital Signs Temperature 36.7 C 07/15/18 00:53 Temperature Source Skin 07/14/18 16:57 Pulse 78 07/15/18 00:53 Respiratory Rate 16 07/15/18 00:53 Respiratory Effort 07/14/18 20:33 Blood Pressure 160/61 H 07/15/18 00:53 Blood Pressure Position Sitting 07/14/18 16:57 Pulse Oximetry 93 L 07/15/18 00:53 Respiratory End-tidal CO2 33 07/15/18 00:53 Oxygen Delivery Method Nasal Cannula 07/15/18 00:53 Oxygen Flow Rate 4 07/15/18 00:53 Pain Level 0 07/15/18 00:53 Intake & Output 07/14/18 07/14/18 07/15/18 11:59 23:59 11:59 Intake Total 2050 / 2050 500 / 500 Output Total 100 / 100 Balance 2049 400 / 400 Weight 70.76 kg Intake: IV 2049 500 / 500 Output: Urine 100 / 100 Other: Urine Color Yellow Yellow Urine Appearance Clear Clear Emesis Description None Laboratory Results WBC 12.96 k/cumm (4.4-10.8) H 07/14/18 17:15 RBC 4.49 m/cumm (4.00-5.20) 07/14/18 17:15 Hgb 14.7 g/dL (12.0-15.5) 07/14/18 17:15 Hct 42.8 % (36.0-46.0) 07/14/18 17:15 MCV 95.3 fL (80-95) H 07/14/18 17:15 MCH 32.7 pg (27.0-33.0) 07/14/18 17:15 MCHC 34.3 g/dL (32.0-36.0) 07/14/18 17:15 RDW 13.5 % (11.7-14.6) 07/14/18 17:15 Plt Count 178 x1000/uL (130-400) 07/14/18 17:15 MPV 10.0 fL (8.0-11.0) 07/14/18 17:15 Immature Gran % 0.2 07/14/18 17:15 Neutrophils % 90.3 07/14/18 17:15 Lymphocytes % 4.9 07/14/18 17:15 Monocytes % 3.5 07/14/18 17:15 Eosinophils % 0.9 07/14/18 17:15 Basophils % 0.2 07/14/18 17:15 Absolute Neutrophils 11.70 k/cumm (1.2-6.7) H 07/14/18 17:15 Absolute Lymphocytes 0.64 k/cumm (1.2-3.4) L 07/14/18 17:15 Absolute Monocytes 0.45 k/cumm (0.11-0.7) 07/14/18 17:15 Absolute Eosinophils 0.12 k/cumm (0.0-0.7) 07/14/18 17:15 Absolute Basophils 0.03 k/cumm (0.0-0.2) 07/14/18 17:15 Sodium 136 mmol/L (136-145) 07/14/18 17:15 Potassium 3.0 mmol/L (3.5-5.1) L 07/14/18 17:15 Chloride 98 mmol/L (98-107) 07/14/18 17:15 Carbon Dioxide 28.1 mmol/L (21.0-32.0) 07/14/18 17:15 Anion Gap 9.9 mmol/L (3-11) 07/14/18 17:15 BUN 32 mg/dL (7-18) H 07/14/18 17:15 Creatinine 0.89 mg/dL (0.55-1.02) 07/14/18 17:15 Estimated GFR/1.73 m2 >= 60.00 (mL/min/1.73m2) 07/14/18 17:15 Glucose 186 mg/dL (70-100) H 07/14/18 17:15 Calcium 9.8 mg/dL (8.5-10.1) 07/14/18 17:15 Magnesium 1.4 mg/dL (1.8-2.4) L 07/14/18 17:15 Total Bilirubin 0.8 mg/dL (0.2-1.0) 07/14/18 17:15 AST 33 U/L (15-37) 07/14/18 17:15 ALT 52 U/L (12-78) 07/14/18 17:15 Alkaline Phosphatase 101 U/L (46-116) 07/14/18 17:15 Troponin I < 0.02 ng/mL (0.00-0.06) 07/14/18 17:15 Total Protein 7.6 g/dL (6.4-8.2) 07/14/18 17:15 Albumin 4.3 g/dL (3.4-5.0) 07/14/18 17:15 Lipase 169 U/L (73-393) 07/14/18 17:15 Urine Color Yellow (Yellow) 07/14/18 18:09 Urine Clarity Clear 07/14/18 18:09 Urine pH 7.0 (5-8) 07/14/18 18:09 Ur Specific [place] 1.010 (1.005-1.025) 07/14/18 18:09 Urine Protein Negative mg/dL (Negative) 07/14/18 18:09 Urine Ketones Negative mg/dL (Negative) 07/14/18 18:09 Urine Blood Trace-intact (Negative) H 07/14/18 18:09 Urine Nitrite Negative (Negative) 07/14/18 18:09 Urine Bilirubin Negative (Negative) 07/14/18 18:09 Urine Urobilinogen 0.2 EU/dL (Up TO 0.2) 07/14/18 18:09 Ur Leukocyte Esterase Trace (Negative) H 07/14/18 18:09 Urine RBC Negative (0-2) 07/14/18 18:09 Urine WBC 3-5 HPF (0-5) 07/14/18 18:09 Ur Epithelial Cells Negative HPF (Negative) 07/14/18 18:09 Urine Crystals Negative HPF (Negative) 07/14/18 18:09 Urine Bacteria Negative HPF (Negative) 07/14/18 18:09 Urine Casts Negative LPF (Negative) 07/14/18 18:09 Urine Mucus Negative (Negative) 07/14/18 18:09 Urine Other Negative (Negative) 07/14/18 18:09 Ur Culture Indicated? Yes 07/14/18 18:09 Urine Glucose Negative mg/dL (Negative) 07/14/18 18:09
[2018-07-15] MEDS: Pantoprazole 40 MG VIAL IVP ×2 (01:32→09:59)
[2018-07-15] MEDS: Normal Saline Flush 10 ML SYR IVP ×3 (01:33→20:09)
[2018-07-15] MEDS: Ondansetron 4 MG/2 ML VIAL IVP (01:37)
[2018-07-15] MEDS: Normal Saline 1,000 ML 125 ML IV (02:52)
[2018-07-15] MEDS: PIPERACILLIN/TAZO 4.5 GM in Normal Saline 100 ML IVPB ×3 (04:01→20:09)
[2018-07-15] MEDS: ACETAMINOPHEN 1,000 MG/100 ML BTL 400 MG IVPB ×3 (04:06→20:10)
[2018-07-15 07:26] LABS: Abs Immature Grans 0.04 k/cumm (0.0-0.09); Absolute Lymphocyte Count 0.44 k/cumm (1.2-3.4); Basophils % 0.1; HCT 36.2 % (36.0-46.0); HGB 12.3 g/dL (12.0-15.5); Immature Grans % 0.3; Lymphocytes % 2.9; Mean Corpuscular Hemoglobin 32.6 pg (27.0-33.0); Mean Platelet Volume 10.1 fL (8.0-11.0); Monocytes % 3.9; Neutrophils % 92.8; Platelet Count 161 x1000/uL (130-400); RBC 3.77 m/cumm (4.00-5.20); RBC Distribution Width 13.8 % (11.7-14.6); White Blood Cell Count 15.02 k/cumm (4.4-10.8)
[2018-07-15 07:27] LABS: Absolute Basophil Count 0.02 k/cumm (0.0-0.2); Absolute Monocyte Count 0.59 k/cumm (0.11-0.7); Absolute Neutrophil Count 13.94 k/cumm (1.2-6.7)
[2018-07-15 07:40] LABS: ALT 39 U/L (12-78); AST 24 U/L (15-37); Alkaline Phosphatase 59 U/L (46-116); Anion Gap 10.5 mmol/L (3-11); BUN 24 mg/dL (7-18); Bilirubin, Total 1.5 mg/dL (0.2-1.0); CO2 24.5 mmol/L (21.0-32.0); CREATININE 0.81 mg/dL (0.55-1.02); Calcium 7.9 mg/dL (8.5-10.1); Chloride 103 mmol/L (98-107); Glucose 144 mg/dL (70-100); Potassium 3.1 mmol/L (3.5-5.1); Sodium 138 mmol/L (136-145); Total Protein 5.7 g/dL (6.4-8.2)
--- NOTE | 2018-07-15 07:51 | PGE_ITS ---
Documented by User: RAFAEL Dos Santos 07/15/18 07:53 Date of Service Date of service: 07/15/18 Time of Service: 07:46 Assessment and Plan (1) Perforation of small intestine due to diverticulitis: Current visit: Yes Status: Acute POD #1 s/p small bowel resection due to diverticulitis with perforation. AM Labs PENDING PAIN- Currently well controlled. ATB- Being treated with Zosyn. IV Fluids- LR @ 80ml/hr DVT Prophylaxsis- On Lovenox and SCDs DIET- NPO; may have ice chips and hard candy to moisten her mouth. NG TUBE- ~100cc Urine Output 300ml overnight Respiratory- Encouraged use of the incentive spirometer and sitting up in the chair. Ordered PT and OT consults for transfer training and strengthening (2) Diverticulitis of jejunum: Current visit: Yes Status: Acute Subjective Patient reports: voiding w/o difficulty and no bowel movement Interval history since last seen: Abdominal pain has improved compared to admission per patient. She states that she passed minimal flatus over night. Denies any nausea or vomiting. She reports that her bottom is sore and has been repositioning frequently throughout the night. Exam Const General: cooperative and comfortable Orientation: alert Resp Effort & Inspection: normal respiratory effort, no audible wheezes and no cough Auscultation: clear to auscultation bilaterally GI Inspection: non-distended and incision (Midline, with dressing in place. ) Palpation: soft, no guarding and tender (generalized) Auscultation: absent bowel sounds Objective Objective Clinical Data: Abnormal lab results 07/14/18 07/14/18 07/14/18 Range/Units 17:15 17:15 18:09 WBC 12.96 H (4.4-10.8) k/cumm RBC (4.00-5.20) m/cumm MCV 95.3 H (80-95) fL Absolute Neutrophils 11.70 H (1.2-6.7) k/cumm Absolute Lymphocytes 0.64 L (1.2-3.4) k/cumm Potassium 3.0 L (3.5-5.1) mmol/L BUN 32 H (7-18) mg/dL Glucose 186 H (70-100) mg/dL Calcium (8.5-10.1) mg/dL Magnesium 1.4 L (1.8-2.4) mg/dL Total Bilirubin (0.2-1.0) mg/dL Total Protein (6.4-8.2) g/dL Albumin (3.4-5.0) g/dL Urine Blood Trace-intact H (Negative) Ur Leukocyte Esterase Trace H (Negative) 07/15/18 07/15/18 Range/Units 06:23 06:23 WBC 15.02 H (4.4-10.8) k/cumm RBC 3.77 L (4.00-5.20) m/cumm MCV 96.0 H (80-95) fL Absolute Neutrophils 13.94 H (1.2-6.7) k/cumm Absolute Lymphocytes 0.44 L (1.2-3.4) k/cumm Potassium 3.1 L (3.5-5.1) mmol/L BUN 24 H (7-18) mg/dL Glucose 144 H (70-100) mg/dL Calcium 7.9 L (8.5-10.1) mg/dL Magnesium (1.8-2.4) mg/dL Total Bilirubin 1.5 H (0.2-1.0) mg/dL Total Protein 5.7 L (6.4-8.2) g/dL Albumin 3.0 L (3.4-5.0) g/dL Urine Blood (Negative) Ur Leukocyte Esterase (Negative) Vital Signs Temperature 36.9 C 07/15/18 03:59 Temperature Source Temporal Artery Scan 07/15/18 04:41 Pulse 75 07/15/18 04:01 Pulse 77 07/15/18 04:01 Respiratory Rate 16 07/15/18 04:01 Respiratory Effort 07/15/18 04:41 Respiratory Depth Shallow 07/15/18 04:41 Respiratory Pattern Normal 07/15/18 04:41 Blood Pressure 114/48 L 07/15/18 04:01 Blood Pressure Mean 63 07/15/18 04:01 Blood Pressure Position Sitting 07/14/18 16:57 Pulse Oximetry 97 07/15/18 04:01 Respiratory End-tidal CO2 33 07/15/18 00:53 Oxygen Delivery Method Room Air 07/15/18 04:41 Oxygen Flow Rate 0 07/15/18 04:41 Pain Level 4 07/15/18 04:41 Intake & Output 07/14/18 07/15/18 07/15/18 18:59 06:59 18:59 Intake Total 2957.500 / 2957.500 Output Total 450 / 450 Balance 2507.500 / 2507.500 Weight 70.76 kg 76 kg Intake: IV 2957.500 / 2957.500 Output: Gastric Drainage 50 / 50 Right Nare 50 / 50 Urine 400 / 400 Other: Urine Color Yellow Urine Appearance Clear Comment Indwelling valdes catheter Emesis Description None Laboratory Results WBC 15.02 k/cumm (4.4-10.8) H 07/15/18 06:23 RBC 3.77 m/cumm (4.00-5.20) L 07/15/18 06:23 Hgb 12.3 g/dL (12.0-15.5) D 07/15/18 06:23 Hct 36.2 % (36.0-46.0) 07/15/18 06:23 MCV 96.0 fL (80-95) H 07/15/18 06:23 MCH 32.6 pg (27.0-33.0) 07/15/18 06:23 MCHC 34.0 g/dL (32.0-36.0) 07/15/18 06:23 RDW 13.8 % (11.7-14.6) 07/15/18 06:23 Plt Count 161 x1000/uL (130-400) 07/15/18 06:23 MPV 10.1 fL (8.0-11.0) 07/15/18 06:23 Immature Gran % 0.3 07/15/18 06:23 Neutrophils % 92.8 07/15/18 06:23 Lymphocytes % 2.9 07/15/18 06:23 Monocytes % 3.9 07/15/18 06:23 Eosinophils % 0.0 07/15/18 06:23 Basophils % 0.1 07/15/18 06:23 Absolute Neutrophils 13.94 k/cumm (1.2-6.7) H 07/15/18 06:23 Absolute Lymphocytes 0.44 k/cumm (1.2-3.4) L 07/15/18 06:23 Absolute Monocytes 0.59 k/cumm (0.11-0.7) 07/15/18 06:23 Absolute Eosinophils 0.00 k/cumm (0.0-0.7) 07/15/18 06:23 Absolute Basophils 0.02 k/cumm (0.0-0.2) 07/15/18 06:23 Sodium 138 mmol/L (136-145) 07/15/18 06:23 Potassium 3.1 mmol/L (3.5-5.1) L 07/15/18 06:23 Chloride 103 mmol/L (98-107) 07/15/18 06:23 Carbon Dioxide 24.5 mmol/L (21.0-32.0) 07/15/18 06:23 Anion Gap 10.5 mmol/L (3-11) 07/15/18 06:23 BUN 24 mg/dL (7-18) H 07/15/18 06:23 Creatinine 0.81 mg/dL (0.55-1.02) 07/15/18 06:23 Estimated GFR/1.73 m2 >= 60.00 (mL/min/1.73m2) 07/15/18 06:23 Glucose 144 mg/dL (70-100) H 07/15/18 06:23 Calcium 7.9 mg/dL (8.5-10.1) L 07/15/18 06:23 Magnesium 1.4 mg/dL (1.8-2.4) L 07/14/18 17:15 Total Bilirubin 1.5 mg/dL (0.2-1.0) H 07/15/18 06:23 AST 24 U/L (15-37) 07/15/18 06:23 ALT 39 U/L (12-78) 07/15/18 06:23 Alkaline Phosphatase 59 U/L (46-116) 07/15/18 06:23 Troponin I < 0.02 ng/mL (0.00-0.06) 07/14/18 17:15 Total Protein 5.7 g/dL (6.4-8.2) L 07/15/18 06:23 Albumin 3.0 g/dL (3.4-5.0) L 07/15/18 06:23 Lipase 169 U/L (73-393) 07/14/18 17:15 Urine Color Yellow (Yellow) 07/14/18 18:09 Urine Clarity Clear 07/14/18 18:09 Urine pH 7.0 (5-8) 07/14/18 18:09 Ur Specific [place] 1.010 (1.005-1.025) 07/14/18 18:09 Urine Protein Negative mg/dL (Negative) 07/14/18 18:09 Urine Ketones Negative mg/dL (Negative) 07/14/18 18:09 Urine Blood Trace-intact (Negative) H 07/14/18 18:09 Urine Nitrite Negative (Negative) 07/14/18 18:09 Urine Bilirubin Negative (Negative) 07/14/18 18:09 Urine Urobilinogen 0.2 EU/dL (Up TO 0.2) 07/14/18 18:09 Ur Leukocyte Esterase Trace (Negative) H 07/14/18 18:09 Urine RBC Negative (0-2) 07/14/18 18:09 Urine WBC 3-5 HPF (0-5) 07/14/18 18:09 Ur Epithelial Cells Negative HPF (Negative) 07/14/18 18:09 Urine Crystals Negative HPF (Negative) 07/14/18 18:09 Urine Bacteria Negative HPF (Negative) 07/14/18 18:09 Urine Casts Negative LPF (Negative) 07/14/18 18:09 Urine Mucus Negative (Negative) 07/14/18 18:09 Urine Other Negative (Negative) 07/14/18 18:09 Ur Culture Indicated? Yes 07/14/18 18:09 Urine Glucose Negative mg/dL (Negative) 07/14/18 18:09 Documented by User: Elvi Maria DO 07/15/18 12:21 Assessment and Plan (1) Perforation of small intestine due to diverticulitis: Current visit: Yes Status: Acute (2) Diverticulitis of jejunum: Current visit: Yes Status: Acute pt dong well. less pain than preOp zosyn PPI pain management no headaches. No CP or SOB. no productive cough. no leg pain or swelling. no flatus. adjust electrolytes pulm toilet up walking today
--- NOTE | 2018-07-15 08:50 | INITIAL_ITS ---
- If Service Date Differs Date of service: 07/15/18 Time of Service: 08:47 Care Management Initial Assess REASON FOR HOSPITALIZATION:: Perforated diverticulitis PAST MEDICAL HISTORY/PAST SURGICAL HISTORY:: Perforation of small intestine due to diverticulitis (Acute). Diverticulitis of jejunum (Acute). Degenerative joint disease. Depression. Diverticulosis. GERD (gastroesophageal reflux disease). Hyperlipemia. Hypertension. Insomnia. Mitral valve insufficiency. Ligation of fallopian tube. Replacement of total knee joint. bunionectomy. gangilion cyst. removal of ovary PREVIOUS FUNCTIONAL STATUS/SOCIAL/FAMILY SUPPORTS:: Susanna is a 77 year old female that lives locally in [place], [place]. She is a her spouse about a year ago. She had 6 children 1 is . She has two daughters and a son that live locally. She retired from [employer]. Susanna states that she is independent with ADL's, and transportation. CURRENT FUNCTIONAL STATUS:: Susanna makes good eye contact she is engaged with assessment. She states that she has great support at home. She states she has had home health in the past and would accept services if needed at time of discharge. She describes a good relationship with her provider and feels that she is able to access care in the community. ADVANCE DIRECTIVES:: None on file - Pt reports she has one CM to contact pcp for copy. Has patient been provided with information about the portal?: Yes Did the patient sign up for the portal?: No (declines ) CODE STATUS:: Full Code INSURANCE COVERAGE / FINANCIAL ISSUES:: Medicare CURRENT HOME/COMMUNITY SERVICES/EQUIPMENT:: None at this time. PRIMARY CARE PHYSICIAN:: Dotty Estrella APRN POTENTIAL DISCHARGE NEEDS:: Follow up appointment with primary care, and surgical provider as directed. PATIENT/FAMILY EDUCATION NEEDS:: Discharge education, limitations and follow up plan of care including ask me three and self management. ANTICIPATED BARRIERS TO DISCHARGE:: None identified. TRANSPORTATION:: Via private car with family at time of discharge. PLAN:: Susanna is status post perforated diverticulitis surgical intervention on 07/14/18. She continues to recieve IV antibiotics, potassium, and fluids her NG tube in intact and cardiac monitoring. She will discharged home when medically ready anticipate no services she would be open to home health if needed at time of discharge. CM to continue to provide support ongoing discharge planning and disposition.
--- NOTE | 2018-07-15 09:21 | OT.INIE ---
Occupational Therapy Notes Inpatient Occupational Therapy Evaluation Date: 07/15/18 Referring Doctor:RAFAEL Dos Santos OT Orders: Please evaluate and treat Precautions: Fall, standard PATIENT PROFILE/ADMITTING DIAGNOSIS: Pt is a 77 year old female who presented to the ER on 07/14/ with abdominal pain. After tests were performed she was diagnosed with diverticulitis with a perforated jejunum. She underwent surgery for peritonitis/perforated jejunum w/ micro abscess earlier this morning. Past Medical History: Degenerative joint disease Depression Diverticulosis GERD (gastroesophageal reflux disease) Hyperlipemia Hypertension Insomnia Mitral valve insufficiency Surgical History Ligation of fallopian tube Replacement of total knee joint bunionectomy gangilion cyst removal of ovary Social History/Home Situation: Pt refers to herself as a who lives alone in a private home with supportive friends and family in her life. She states that at her baseline level of function she is (I) all ADLs/IADLs, she is currently performing community mobility and transportation (I). Equipment owned/DME: grab bars, walk in shower, shower bench SUBJECTIVE: Pt was sitting in bed with her two daughters and granddaughters present. Pt was agreeable to OT session and reports that she fee OBJECTIVE: General Observation: IV (L) UE, BP cuff (L) UE, O2 monitor, telemetry Mental Status: A&Ox3 Pain: c/o pain in (R) shoulder (chronic), slight pain in abdomen which she states it more a surgical pain. ROM: RUE AROM WNL L UE AROM shoulder flexion 50* d/t a chronic rotator cuff issue, PROM shoulder flexion WNL, elbow WNL, hand and digits WNL STRENGTH: RUE 4+/5 throughout globally LUE Shoulder flexion 4/5, parts washer and elbow 4+/5 FUNCTIONAL MOBILITY/ADLS: Pt denies performing ADLs/IADLs as she states that she is still recovering from the surgery process. Pt functionally was able to touch behind her head, cross midline, and reach towards her abdomen to bottom of stomach. Pt is unable to reach towards (B) LE as she states she would like to rest her abdomen at this time. BALANCE: Static sitting Good Dynamic Sitting Good SPECIAL TESTS: Daily Activity Limitations Standardized Measure [facility] AM -PAC ?6 clicks? Daily Activity Inpatient Short Form: Raw score: 19 Standardized score: 40.22 CMS score: 42.80% INFORMED CONSENT/EDUCATION: Pt instructed in purpose of OT Consult and plan of care. ASSESSMENT: Patient is a 77-year-old female referred to occupational therapy services with diagnosis of diverticulitis with perforated jejunum. Patient presents with clinical signs and symptoms consistent with dx, as demonstrated by the following impairment level findings: Pain in abdomen, decreased (I) in functional mobility, decreased (I) in bed mobility, pt is not even 24 s/p surgery and feels she is still recovering from the surgery process. Impairments are contributing to the following functional limitations: Decreased functional activity tolerance, decrease (I) in ADLs/IADLs, decreased functional mobility. Pt will benefit from skilled OT services to return to her premorbid level of function. AMPAC score 19, CMS score 42.80% Patient is assessed as a Moderate 02571 complexity based on the following: History: See Above Examination: See Above Presentation: Evolving Decision Making: AMPAC score 19, CMS score 42.80% GOALS Goals x1 week 1. Transfers CGA, LRD 2. Dressing Sitting in chair mod (I) with adaptive equipment 3. Bathing Sitting in chair (I) 4. Toileting (I) on commode PLAN OF CARE/TREATMENT PLAN: 1x/day, 5 days/ week x 1week Initiate Occupational Therapy Services for bathing, dressing, grooming, toileting, eating, transfer training. DISCHARGE RECOMMENDATIONS Home with HH services vs short term stay in SNF based on pts current level of function which pt is less than 24 hours out of surgery at this time. OT will continue to monitor pts response to OT services and will be able to make a better assessment with further assessment, although OT does feel that pt will most likely only require home with HH services. TREATMENT TIME/MINUTES/CODES 34750, 20 minutes (09:00) [facility]
--- NOTE | 2018-07-15 09:44 | OTIE_ITS ---
Occupational Therapy Notes Inpatient Occupational Therapy Evaluation Date: 07/15/18 Referring Doctor:RAFAEL Dos Santos OT Orders: Please evaluate and treat Precautions: Fall, standard PATIENT PROFILE/ADMITTING DIAGNOSIS: Pt is a 77 year old female who presented to the ER on 07/14/ with abdominal pain. After tests were performed she was diagnose d with diverticulitis with a perforated jejunum. She underwent surgery for peritonitis/perforated jejunum w/ micro abscess earlier this morning. Past Medical History: Degenerative joint disease Depression Diverticulosis GERD (gastroesophageal reflux disease) Hyperlipemia Hypertension Insomnia Mitral valve insufficiency Surgical History Ligation of fallopian tube Replacement of total knee joint bunionectomy gangilion cyst removal of ovary Social History/Home Situation: Pt refers to herself as a who lives alone in a private home with supportive friends and family in her life. She states that at her baseline level of function she is (I) all ADLs/IADLs, she is currently performing community mobility and transportation (I). Equipment owned/DME: grab bars, walk in shower, shower bench SUBJECTIVE: Pt was sitting in bed with her two daughters and granddaughters present. Pt was agreeable to OT session and reports that she fee OBJECTIVE: General Observation: IV (L) UE, BP cuff (L) UE, O2 monitor, telemetry Mental Status: A&Ox3 Pain: c/o pain in (R) shoulder (chronic), slight pain in abdomen which she states it more a surgical pain. ROM: RUE AROM WNL L UE AROM shoulder flexion 50* d/t a chronic rotator cuff issue, PROM shoulder flexion WNL, elbow WNL, hand and digits WNL STRENGTH: RUE 4+/5 throughout globally LUE Shoulder flexion 4/5, framer and elbow 4+/5 FUNCTIONAL MOBILITY/ADLS: Pt denies performing ADLs/IADLs as she states that she is still recovering from the surgery process. Pt functionally was able to touch behind her head, cross midline, and reach towards her abdomen to bottom of stomach. Pt is unable to reach towards (B) LE as she states she would like to rest her abdomen at this time. BALANCE: Static sitting Good Dynamic Sitting Good SPECIAL TESTS: Daily Activity Limitations Standardized Measure [facility] AM -PAC ?6 clicks? Daily Activity Inpatient Short Form: Raw score: 19 Standardized score: 40.22 CMS score: 42.80% INFORMED CONSENT/EDUCATION: Pt instructed in purpose of OT Consult and plan of care. ASSESSMENT: Patient is a 77-year-old female referred to occupational therapy services with diagnosis of diverticulitis with perforated jejunum. Patient presents with clinical signs and symptoms consistent with dx, as demonstrated by the following impairment level findings: Pain in abdomen, decreased (I) in functional mobility, decreased (I) in bed mobility, pt is not even 24 s/p surgery and feels she is still recovering from the surgery process. Impairments are contributing to the following functional limitations: Decreased functional activity tolerance, decrease (I) in ADLs/IADLs, decreased functional mobility. Pt will benefit from skilled OT services to return to her premorbid level of function. AMPAC score 19, CMS score 42.80% Patient is assessed as a Moderate 01863 complexity based on the following: History: See Above Examination: See Above Presentation: Evolving Decision Making: AMPAC score 19, CMS score 42.80% GOALS Goals x1 week 1. Transfers CGA, LRD 2. Dressing Sitting in chair mod (I) with adaptive equipment 3. Bathing Sitting in chair (I) 4. Toileting (I) on commode PLAN OF CARE/TREATMENT PLAN: 1x/day, 5 days/ week x 1week Initiate Occupational Therapy Services for bathing, dressing, grooming, toileting, eating, transfer training. DISCHARGE RECOMMENDATIONS Home with HH services vs short term stay in SNF based on pts current level of function which pt is less than 24 hours out of surgery at this time. OT will continue to monitor pts response to OT services and will be able to make a better assessment with further assessment, although OT does feel that pt will most likely only require home with HH services. TREATMENT TIME/MINUTES/CODES 87619, 20 minutes (09:00) [facility]
[2018-07-15] MEDS: Nystatin CREAM 30 GM TUBE TP ×2 (09:59→20:09)
[2018-07-15] MEDS: POTASSIUM CHLORIDE 10 MEQ/100 ML BAG 100 MEQ IVPB (10:00)
[2018-07-15 12:33] LABS: Magnesium 1.2 mg/dL (1.8-2.4)
[2018-07-15] MEDS: Normal Saline 1,000 ML 100 ML IV ×2 (13:30→22:09)
[2018-07-15] MEDS: POTASSIUM CHLORIDE 10 MEQ/100 ML BAG 75 MEQ IVPB (13:44)
[2018-07-15] MEDS: Enoxaparin 40 MG/0.4 ML SYR SC (13:49)
[2018-07-15] MEDS: MAGNESIUM SULFATE 2 GM/50 ML BAG IVPB (14:08)
--- NOTE | 2018-07-15 14:16 | PT.INTREAT ---
Date of service: 07/15/18 Time of Service: 14:16 PT Notes Inpatient Physical Therapy Treatment Note [facility] Date: 07/15/2018 PRECAUTIONS: Fall SUBJECTIVE: Susanna is agreeable to participating in PT. She reports that she has not had much pain today, although is getting tired after sitting up in the chair. OBJECTIVE: PAIN: No complaints of pain BED MOBILITY/TRANSFERS Sit-supine: Min A Sit-stand: Min A Stand-sit: CGA GAIT Assistive Device: FWW Weight bearing: Full Assist: CGA Distance: 10' Deviation: Slow pace THEREX: Patient completed a global strengthening program, in a supine position, as per flow sheet. No complaints of pain, although patient complained of increased fatigue. ASSESSMENT: Patient tolerated session with complaints of increased fatigue with activity. Patient was able to tolerate a slight progression in gait distance with FWW support and CGA. Patient would benefit from continued gait and transfer training as well as strengthening for improved mobility and improved activity tolerance. PLAN: Continue with PTs POC TREATMENT CODE/TIME: 25 minutes; 58145, [id number]
--- NOTE | 2018-07-15 15:54 | PDOC.ANES ---
Date of service: 07/15/18 Time of Service: 15:54 Anesthesia Note Report Anesthesia Note: At patient beside at the request of Dr. Maria. Discussed potential of bilateral TAP block for postoperative pain control. RN at bedside. Patient denies any pain currently and has been seen by physical therapy and up to chair in room without discomfort. Patient was educated about the block and encouraged to reach out to anesthesia if she develops discomfort. RN aware of plan.
--- NOTE | 2018-07-15 16:24 | PHARADMIT ---
Addendum entered by Isabel Tanner 07/17/18 12:39: Pharmacy Note Subjective stable post having small intestine repaired Objective K 3.2 Mg 1.7 Assessment GI fxn returned, NG tube dc'd Plan PO home meds will be resumed and electrolytes will be corrected; transfer to [place] Addendum entered by Corazon Mehta 07/16/18 09:51: Pharmacy Note Subjective perforation small intestine due to diverticulitis Objective K 2.6, Assessment IV KCL and IVF changed to replace K Plan may dc NG tube if bowels more active Original Note: Admission Pharmacy Clinical Review PER JEJUNUM Code Status Full Code Current Weight 76 kg Renally Cleared and Narrow Therapeutic Index Meds CRCL ~47ML/MIN QTc Value / Action Taken 452 BP Control, Fever 120/52 AFEBRILE Electrolytes reviewed K 3.1, MAG 1.2 DVT Prophylaxis ENOXAPARIN Opiate Usage / Scheduled Bowel Regimen Ordered PRN/NO Plt/SCr for Heparin / Enoxaparin 161/0.81 INR for Warfarin NA H/H stable, WBC/Bands 12.3/36.2 WBC 15.02 Antibiotic appropriateness PIP/TAZO Cultures and Sensitivities UC GRAM + KONSTANTIN Surgical ABX d/c within 24 hr NA DM control / Insulin Dosing NA Heart Failure (Check EF%) (ZOE's, B-Block, Diuretics) NA IV to PO Switch Home Meds Reviewed Home Meds Not Ordered ascorbic acid (vitamin C) [Vitamin C] 500 mg PO DAILY hydrochlorothiazide 50 mg PO DAILY meloxicam 15 mg PO DAILY multivitamin [Multi-Day] 1 ea PO DAILY omeprazole [Prilosec] 20 mg PO DAILY(ON PANTOPRAZOLE INPT) zolpidem [Ambien] 10 mg PO HS fluticasone propionate 16 gm NS PRN PRN omega-3 fatty acids-fish oil 1 ea PO DAILY NS triamcinolone acetonide 15 gm TOPICAL PRN PRN Comments
[2018-07-16] VITALS (23 sets, daily range): BP systolic 120–165; BP diastolic 51–78; PULSE 74–104; RESP 13–26; TEMP 36.3–37.1; O2SAT 93–99
[2018-07-16] MEDS: ACETAMINOPHEN 1,000 MG/100 ML BTL 400 MG IVPB ×3 (04:17→20:45)
[2018-07-16] MEDS: PIPERACILLIN/TAZO 4.5 GM in Normal Saline 100 ML IVPB ×3 (04:17→20:42)
[2018-07-16] MEDS: Normal Saline 1,000 ML 100 ML IV (05:54)
[2018-07-16 07:08] LABS: ALT 32 U/L (12-78); AST 22 U/L (15-37); Albumin 2.6 g/dL (3.4-5.0); Alkaline Phosphatase 46 U/L (46-116); BUN 16 mg/dL (7-18); Bilirubin, Total 1.4 mg/dL (0.2-1.0); CO2 23.9 mmol/L (21.0-32.0); CREATININE 0.78 mg/dL (0.55-1.02); Calcium 7.8 mg/dL (8.5-10.1); Glucose 95 mg/dL (70-100); Magnesium 1.8 mg/dL (1.8-2.4); Total Protein 5.4 g/dL (6.4-8.2)
[2018-07-16 07:15] LABS: Anion Gap 10.1 mmol/L (3-11); Chloride 106 mmol/L (98-107); Sodium 140 mmol/L (136-145)
[2018-07-16 07:21] LABS: Potassium 2.6 mmol/L (3.5-5.1)
--- NOTE | 2018-07-16 07:57 | PT.INIE ---
Date of service: 07/15/18 Time of Service: 11:48 PT Notes Inpatient Physical Therapy Evaluation Date: 07/15/2018 Referring Doctor: Elvi Maria MD PT Orders: PT CONSULT: [S/P Ex Lap. Weak. Walking] Precautions: Fall. Standard. Patient Profile/Admitting Diagnosis: Patient is a 77-year-old female who presented to the ED with abdominal pain on 07/14/2018. Patient was diagnosed with diverticulitis with perforation of small intestine S/P jenunal resection and anastomoses. Patient was admitted to ICU post op in order to monitor cardiac function. PMHX: Medical History Perforation of small intestine due to diverticulitis (Acute) Diverticulitis of jejunum (Acute) Degenerative joint disease Depression Diverticulosis GERD (gastroesophageal reflux disease) Hyperlipemia Hypertension Insomnia Mitral valve insufficiency Surgical History Ligation of fallopian tube Replacement of total knee joint bunionectomy gangilion cyst removal of ovary Social History/Home Situation: Patient lives in a a floor house with 3 steps to enter without rails. She was independent with all aspects of ADLs without the need for assistive ambulatory device nor adaptive equipment. She still drives. Current Functional Limitations: Need for assistance with bed mobility, transfers, and ambulation using FWW. Social History/Home Situation: Pt refers to herself as a who lives alone in a private home with supportive friends and family in her life. She states that at her baseline level of function she is (I) all ADLs/IADLs, she is currently performing community mobility and transportation (I). Equipment owned/DME: grab bars, walk in shower, shower bench Equipment Owned/DME: [facility] Subjective: Patient is pleasant and cooperative, agreeable to PT consult. She is looking forward to going home at highest mobility level. Objective: General Observation: Patient seen resting in bed. Telemetry on. IV in R UE. BP cuff in L UE. Anti DVT pumps to B LE. TEDS to B LE. Oximeter on R index finger. Mental Status: AAO x3 Pain: Reported discomfort on abdominal area at surgical site with bed mobility ROM: Right Upper Extremity: Shoulder Flexion WFL. Shoulder abduction WFL. Elbow flexion WFL. Wrist flexion WFL. Functional opening and closing of hand WFL. Left Upper Extremity: Shoulder Flexion 0-50. Shoulder abduction 0-45. Elbow flexion WFL. Wrist flexion WFL. Functional opening and closing of hand WFL. Right Lower Extremity: Hip flexion 0-110. Hip abduction WFL. Knee flexion WFL. Ankle dorsiflexion WFL. Ankle plantarflexion WFL. Left Lower Extremity: Hip flexion 0-120. Hip abduction WFL. Knee flexion WFL. Ankle dorsiflexion WFL. Ankle plantarflexion WFL. Strength: Right Upper Extremity: Shoulder flexors 4/5. Shoulder abductors 4/5. Elbow flexors 4/5. Elbow extensors 4/5. Health Information Clerk strong. Left Upper Extremity: Shoulder flexors3-/5. Shoulder abductors3-/5. Elbow flexors 4/5. Elbow extensors 4/5. Health Information Clerk strong. Right Lower Extremity: Hip flexors 3-/5. Hip abductors 4/5. Knee flexors 4/5. Knee extensors4-/5. Ankle dorsiflexors 4-/5. Ankle plantarflexors 4/5. Left Lower Extremity:Hip flexors 3-/5. Hip abductors 4/5. Knee flexors 4/5. Knee extensors 4/5. Ankle dorsiflexors4/5. Ankle plantarflexors 4/5. Sensation: Intact as to pain and pressure on BLE Bed Mobility/Transfers: Supine to sit moderate assist Sit to supine moderate assist Sit to stand minimal assist Stand to sit minimal assist Bed to chair minimal assist Chair to bed minimal assist Gait: Patient completed short distance in-room ambulation to transfer onto chair walking 5 steps + 2 steps + 2 steps backwards using FWW with mild disocomfort on abdominal surgical site at 03/12. Balance: Static Sitting: Good Dynamic Sitting: Fair Static Standing: Fair Dynamic Standing: Special Tests: Mobility Limitations Standardized Measure [facility] AM-PAC 6 clicks Basic Mobility Inpatient Short Form: Raw Score: 16 CMS Score: 54% deficit Informed Consent/Education: Patient instructed in purpose of PT consult and plan of care. Assessment: Patient is a 77-year-old female who presented to the ED with abdominal pain on 07/14/2018. Patient was diagnosed with diverticulitis with perforation of small intestine S/P jenunal resection and anastomoses. Patient was admitted to ICU post op in order to monitor cardiac function. Patient presents with clinical signs and symptoms consistent with current/admitting diagnoses that have resulted to mobility limitations, gait instability, generalized weakness, and impairment of motor control as demonstrated by the following impairment level findings: 1. Decreased strength to B LE major muscle groups 2. Impaired sitting/standing balance 3. Impaired activity tolerance Impairments are contributing to the following functional limitations: 1. Dependent bed mobility skills 2. Increased dependence with transfers 3. Inability to safely ambulate without assistive device and physical assistance 4. Increase completion time for mobility ADL performance 5. Increased fall risk 6. Inability to negotiate steps alone safely Patient is assessed as a Moderate 95963 complexity based on the following: History: Patient is a 77-year-old female who presented to the ED with abdominal pain on 07/14/2018. Patient was diagnosed with diverticulitis with perforation of small intestine S/P jenunal resection and anastomoses. Examination: Underlying impairments and functional limitations as noted Presentation: Evolving Decision Makin moderate complexity Goals: Goals X1 week 1. Supine-Sit independent 2. Sit-Supine independent 3. Sit-Stand independent 4. Stand-Sit independent 5. Bed-Chair independent 6. Chair-Bed independent 7. Independent gait on level surface with use of least restrictive device for at least 300 feet without report of abdominal pain nor dyspnea 8. Independent stair negotiation while holding onto bilateral rails for at least 5 steps without report of abdominal pain nor dyspnea 9. Independent with home exercise program 10. Good static and dynamic standing balance/tolerance Plan of Care/Treatment Plan: 1-2x/day, 7 days/week x 1 week. Plan of care has been reviewed with the MIXER OPERATOR HELPER [employer]OT [employer]AL providing the service under Physical Therapy direction. Initiate Physical Therapy intervention for strengthening, bed mobility, transfers, gait, stairs, balance training, use of assistive device. DISCHARGE RECOMMENDATIONS: Patient may benefit from home health PT services in order to premorbid level without an assistive. Patient may benefit from a front wheeled walker for fall reduction and to smooth transition to home. TREATMENT CODE/TIME: 62784 for 33 minutes beginning at 11:48 am. Thank you for this referral. Samantha Gant, PT, DPT, CLT [facility]
--- NOTE | 2018-07-16 08:03 | PDOC.CMPRO ---
Care Management Progress Note S/O: Susanna was lying in bed and greeted this editorial writer pleasantly. She was visiting with a young gentleman; assumed to be her grandson. CM permitted Susanna to her visit, reviewing contact information as needed for any concerns. CM continues to follow. A: 77 year old female admitted to [facility] 07/15/18 for perforated jejunum P: Susanna is status post perforated diverticulitis surgical intervention on 07/14/18. She continues to receive IV antibiotics, potassium, and fluids, her NG tube in intact (with increased suction) and cardiac monitoring. She will discharged home when medically ready, additional services not anticipated at this time. Susanna has reported she would be agreeable to [facility] supports upon discharge if recommended. CM to continue to provide support ongoing discharge planning and disposition.
--- NOTE | 2018-07-16 08:08 | CMPROGNOTE_ITS ---
Care Management Progress Note S/O: Susanna was lying in bed and greeted this adjusto writer operator pleasantly. She was visiting with a young gentleman; assumed to be her grandson. CM permitted Susanna to her visit, reviewing contact information as needed for any concerns. CM continues to follow. A: 77 year old female admitted to [facility] 07/15/18 for perforated jejunum P: Susanna is status post perforated diverticulitis surgical intervention on 07/14/18. She continues to receive IV antibiotics, potassium, and fluids, her NG tube in intact (with increased suction) and cardiac monitoring. She will discharged home when medically ready, additional services not anticipated at this time. Susanna has reported she would be agreeable to [facility]NA supports upon discharge if recommended. CM to continue to provide support ongoing discharge planning and disposition.
[2018-07-16] MEDS: Nystatin CREAM 30 GM TUBE TP ×2 (08:38→21:18)
[2018-07-16] MEDS: POTASSIUM CHLORIDE 10 MEQ/100 ML BAG 100 MEQ IVPB ×2 (08:38→10:04)
[2018-07-16] MEDS: Normal Saline Flush 10 ML SYR IVP (08:38)
[2018-07-16] MEDS: Pantoprazole 40 MG VIAL IVP (08:52)
--- NOTE | 2018-07-16 09:12 | W.PM.PROGNOT ---
Date of Service Date of service: 07/16/18 Time of Service: 09:12 Assessment and Plan (1) Perforation of small intestine due to diverticulitis: Current visit: Yes Status: Acute POD # 1 s/p exp lap, jejunal resection, and anastomosis for a perforated jejunal diverticulitis. Stable. Low potassium - being replaced. Monitor in ICU. Consider transfer to med-surg floor after K+ repleted. Will d/c valdes. Await return of GI function. Bowel sounds still hypoactive. NG in place. Consider d/c NG in am if bowels more active. Discussed with patient's nurse. Subjective Interval history since last seen: Patient up in chair at bedside in ICU. Denies complaints. Passed small amount of flatus overnight. NG with 450 cc output documented overnight. K+ - 2.6. Receiving IV K+ replacement this am. Exam Const General: cooperative, comfortable, no acute distress and well developed Nutritional Appearance: average body habitus and well nourished Orientation: alert and oriented x3 HENMT Head: normocephalic and atraumatic Eyes Sclera: sclerae normal Resp Effort & Inspection: normal respiratory effort and able to speak in complete sentences Cardio Jugular venous pressure: no JVD Rate: regular rate Rhythm: regular rhythm GI Inspection: non-distended and other (midline incision - malini - dry/clean/intact) Palpation: not firm, no guarding, no masses and tender (mildly tender mid-abdomen by incision) Auscultation: hypoactive bowel sounds Skin General skin exam: no rashes or lesions noted and no jaundice Objective Objective Clinical Data: Abnormal lab results 07/15/18 07/16/18 Range/Units 06:23 06:15 Potassium 3.1 L 2.6 L* (3.5-5.1) mmol/L BUN 24 H (7-18) mg/dL Glucose 144 H (70-100) mg/dL Calcium 7.9 L 7.8 L (8.5-10.1) mg/dL Magnesium 1.2 L (1.8-2.4) mg/dL Total Bilirubin 1.5 H 1.4 H (0.2-1.0) mg/dL Total Protein 5.7 L 5.4 L (6.4-8.2) g/dL Albumin 3.0 L 2.6 L (3.4-5.0) g/dL Vital Signs Temperature 37.1 C 07/16/18 04:29 Temperature Source Temporal Artery Scan 07/16/18 04:31 Pulse 78 07/16/18 05:49 Pulse 82 07/16/18 05:49 Respiratory Rate 20 07/16/18 05:49 Respiratory Effort 07/16/18 04:31 Respiratory Depth Normal 07/16/18 04:31 Respiratory Pattern Normal 07/16/18 04:31 Blood Pressure 132/57 L 07/16/18 05:49 Blood Pressure Mean 75 07/16/18 05:49 Blood Pressure Position Right Lateral 07/15/18 16:45 Pulse Oximetry 95 07/16/18 05:49 Respiratory End-tidal CO2 33 07/15/18 00:53 Oxygen Delivery Method Nasal Cannula 07/16/18 04:31 Oxygen Flow Rate 1 07/16/18 04:31 Pain Level 2 07/16/18 04:31 Intake & Output 07/15/18 07/15/18 07/16/18 11:59 23:59 11:59 Intake Total 1650.834 / 3350.416 1699.582 / 3350.416 1078.334 / 1078.334 Output Total 450 / 1090 640 / 1090 1100 / 1100 Balance 1200.834 / 2260.416 1059.582 / 2260.416 -21.666 / -21.666 Weight 76 kg 79.8 kg Intake: IV 1650.834 / 3300.416 1649.582 / 3300.416 1078.334 / 1078.334 Oral 50 / 50 Output: Gastric Drainage 50 / 450 400 / 450 450 / 450 Right Nare 50 / 450 400 / 450 450 / 450 Urine 400 / 640 240 / 640 650 / 650 Other: Urine Color Yellow Yellow Yellow Urine Appearance Clear Clear Clear Comment Indwelling valdes catheter patient and draining light evelin urine. Indwelling valdes catheter in place. Indwelling valdes catheter in place. Emesis Description None Laboratory Results WBC 15.02 k/cumm (4.4-10.8) H 07/15/18 06:23 RBC 3.77 m/cumm (4.00-5.20) L 07/15/18 06:23 Hgb 12.3 g/dL (12.0-15.5) D 07/15/18 06:23 Hct 36.2 % (36.0-46.0) 07/15/18 06:23 MCV 96.0 fL (80-95) H 07/15/18 06:23 MCH 32.6 pg (27.0-33.0) 07/15/18 06:23 MCHC 34.0 g/dL (32.0-36.0) 07/15/18 06:23 RDW 13.8 % (11.7-14.6) 07/15/18 06:23 Plt Count 161 x1000/uL (130-400) 07/15/18 06:23 MPV 10.1 fL (8.0-11.0) 07/15/18 06:23 Immature Gran % 0.3 07/15/18 06:23 Neutrophils % 92.8 07/15/18 06:23 Lymphocytes % 2.9 07/15/18 06:23 Monocytes % 3.9 07/15/18 06:23 Eosinophils % 0.0 07/15/18 06:23 Basophils % 0.1 07/15/18 06:23 Absolute Neutrophils 13.94 k/cumm (1.2-6.7) H 07/15/18 06:23 Absolute Lymphocytes 0.44 k/cumm (1.2-3.4) L 07/15/18 06:23 Absolute Monocytes 0.59 k/cumm (0.11-0.7) 07/15/18 06:23 Absolute Eosinophils 0.00 k/cumm (0.0-0.7) 07/15/18 06:23 Absolute Basophils 0.02 k/cumm (0.0-0.2) 07/15/18 06:23 Sodium 140 mmol/L (136-145) 07/16/18 06:15 Potassium 2.6 mmol/L (3.5-5.1) L* 07/16/18 06:15 Chloride 106 mmol/L (98-107) 07/16/18 06:15 Carbon Dioxide 23.9 mmol/L (21.0-32.0) 07/16/18 06:15 Anion Gap 10.1 mmol/L (3-11) 07/16/18 06:15 BUN 16 mg/dL (7-18) D 07/16/18 06:15 Creatinine 0.78 mg/dL (0.55-1.02) 07/16/18 06:15 Estimated GFR/1.73 m2 >= 60.00 (mL/min/1.73m2) 07/16/18 06:15 Glucose 95 mg/dL (70-100) 07/16/18 06:15 Calcium 7.8 mg/dL (8.5-10.1) L 07/16/18 06:15 Magnesium 1.8 mg/dL (1.8-2.4) 07/16/18 06:15 Total Bilirubin 1.4 mg/dL (0.2-1.0) H 07/16/18 06:15 AST 22 U/L (15-37) 07/16/18 06:15 ALT 32 U/L (12-78) 07/16/18 06:15 Alkaline Phosphatase 46 U/L (46-116) 07/16/18 06:15 Troponin I < 0.02 ng/mL (0.00-0.06) 07/14/18 17:15 Total Protein 5.4 g/dL (6.4-8.2) L 07/16/18 06:15 Albumin 2.6 g/dL (3.4-5.0) L 07/16/18 06:15 Lipase 169 U/L (73-393) 07/14/18 17:15 Urine Color Yellow (Yellow) 07/14/18 18:09 Urine Clarity Clear 07/14/18 18:09 Urine pH 7.0 (5-8) 07/14/18 18:09 Ur Specific [place] 1.010 (1.005-1.025) 07/14/18 18:09 Urine Protein Negative mg/dL (Negative) 07/14/18 18:09 Urine Ketones Negative mg/dL (Negative) 07/14/18 18:09 Urine Blood Trace-intact (Negative) H 07/14/18 18:09 Urine Nitrite Negative (Negative) 07/14/18 18:09 Urine Bilirubin Negative (Negative) 07/14/18 18:09 Urine Urobilinogen 0.2 EU/dL (Up TO 0.2) 07/14/18 18:09 Ur Leukocyte Esterase Trace (Negative) H 07/14/18 18:09 Urine RBC Negative (0-2) 07/14/18 18:09 Urine WBC 3-5 HPF (0-5) 07/14/18 18:09 Ur Epithelial Cells Negative HPF (Negative) 07/14/18 18:09 Urine Crystals Negative HPF (Negative) 07/14/18 18:09 Urine Bacteria Negative HPF (Negative) 07/14/18 18:09 Urine Casts Negative LPF (Negative) 07/14/18 18:09 Urine Mucus Negative (Negative) 07/14/18 18:09 Urine Other Negative (Negative) 07/14/18 18:09 Ur Culture Indicated? Yes 07/14/18 18:09 Urine Glucose Negative mg/dL (Negative) 07/14/18 18:09
--- NOTE | 2018-07-16 10:30 | OT.INTREAT ---
Date of service: 07/16/18 Time of Service: 09:45 Occupational Therapy Notes Occupational Therapy Inpatient Treatment Note Date: 07/16/18 PRECAUTIONS: Fall, Standard SUBJECTIVE: Pt was sitting in chair and was agreeable to OT session. OBJECTIVE: PAIN:no c/o pain but states it more of a muscle discomfort. FUNCTIONAL MOBILITY BATHING: Sitting in chair with max (A) set up Upper Body: (I) face, min (A) arms d/t IVs/telemetry, (I) abdomen and under breasts Lower Body: (I) (L) leg, max (A) (L) foot, max (A) (R) leg/foot DRESSING: Sitting in chair Upper Extremity: Min (A) with hospital gown don and doffing d/t medical equipment Lower Extremity: Max (A) sock don and doffing (R) LE, (I) don and doffing sock (L) LE ASSESSMENT/PLAN: Pt was able to perform bathing and dressing routines with increased (I) in the sitting position. She is not able to perform socks and LE bathing d/t decreased ROM of (B) LE as well as muscle discomfort in her abdoman. OT will continue to progress pt towards goals established at initial evaluation. TREATMENT CODES/TIME: [id number], 25 minutes (09:45) [facility]
--- NOTE | 2018-07-16 10:39 | OTTR_ITS ---
Date of service: 07/16/18 Time of Service: 09:45 Occupational Therapy Notes Occupational Therapy Inpatient Treatment Note Date: 07/16/18 PRECAUTIONS: Fall, Standard SUBJECTIVE: Pt was sitting in chair and was agreeable to OT session. OBJECTIVE: PAIN:no c/o pain but states it more of a muscle discomfort. FUNCTIONAL MOBILITY BATHING: Sitting in chair with max (A) set up Upper Body: (I) face, min (A) arms d/t IVs/telemetry, (I) abdomen and under breasts Lower Body: (I) (L) leg, max (A) (L) foot, max (A) (R) leg/foot DRESSING: Sitting in chair Upper Extremity: Min (A) with hospital gown don and doffing d/t medical equipment Lower Extremity: Max (A) sock don and doffing (R) LE, (I) don and doffing sock (L) LE ASSESSMENT/PLAN: Pt was able to perform bathing and dressing routines with increased (I) in the sitting position. She is not able to perform socks and LE bathing d/t decreased ROM of (B) LE as well as muscle discomfort in her abdoman. OT will continue to progress pt towards goals established at initial evaluation. TREATMENT CODES/TIME: [id number], 25 minutes (09:45) [facility]
[2018-07-16] MEDS: POTASSIUM CHLORIDE 10 MEQ/100 ML BAG 70 MEQ IVPB ×2 (11:27→13:17)
--- NOTE | 2018-07-16 14:15 | PT.INTREAT ---
Date of service: 07/16/18 Time of Service: 14:15 PT Notes Inpatient Physical Therapy Treatment Note [facility] Date: 07/16/18 PRECAUTIONS: Fall SUBJECTIVE: Susanna states that she is feeling pretty good today. OBJECTIVE: PAIN: No c/o pain BED MOBILITY/TRANSFERS Sit-supine: SBA with HOB flat Sit-stand: SBA Stand-sit: SBA GAIT Assistive Device: FWW Weight bearing: Full Assist: CGA in a.m.; SBA in p.m. Distance: 100' x2 in a.m.; 250' in p.m. THEREX: Patient completed a global strengthening program, in a seated position, as per flow sheet. ASSESSMENT: Patient tolerated session well without complaint of pain. Patient indicated increased LE fatigue with gait training, although was able to tolerate a significant progression in distance with FWW support and CGA. Patient would benefit from continued gait and transfer training, as well as strengthening for improved activity tolerance and mobility. PLAN: Continue with PT's POC TREATMENT CODE/TIME: Session 1: 30 minutes; 60205, 13899 Session 2: 15 minutes; [id number]
--- NOTE | 2018-07-16 14:20 | PTTR_ITS ---
Date of service: 07/16/18 Time of Service: 14:15 PT Notes Inpatient Physical Therapy Treatment Note [facility] Date: 07/16/18 PRECAUTIONS: Fall SUBJECTIVE: Susanna states that she is feeling pretty good today. OBJECTIVE: PAIN: No c/o pain BED MOBILITY/TRANSFERS Sit-supine: SBA with HOB flat Sit-stand: SBA Stand-sit: SBA GAIT Assistive Device: FWW Weight bearing: Full Assist: CGA in a.m.; SBA in p.m. Distance: 100' x2 in a.m.; 250' in p.m. THEREX: Patient completed a global strengthening program, in a seated position, as per flow sheet. ASSESSMENT: Patient tolerated session well without complaint of pain. Patient indicated increased LE fatigue with gait training, although was able to tolerate a significant progression in distance with FWW support and CGA. Patient would benefit from continued gait and transfer training, as well as strengthening for improved activity tolerance and mobility. PLAN: Continue with PT's POC TREATMENT CODE/TIME: Session 1: 30 minutes; 09159, 78101 Session 2: 15 minutes; [id number]
[2018-07-16] MEDS: Enoxaparin 40 MG/0.4 ML SYR SC (14:43)
--- NOTE | 2018-07-16 21:34 | W.PM.PROGNOT ---
Date of Service Date of service: 07/16/18 Time of Service: 21:34 Assessment and Plan (1) Perforation of small intestine due to diverticulitis: Current visit: Yes Status: Acute doing very well. clamp NGT. if any distention/bloating, N/V- return to LIS. If doing well will d/c tube in am. Continue supportive care (2) Diverticulitis of jejunum: Current visit: Yes Status: Acute (3) Abnormal CT of spine: Current visit: Yes Status: Acute will need MRI of spine as outpt. ovaries and uterus were atrophic. sigmoid divertic- no signs of colon cancer. liver was clean. no focal neuro deficits. Did not do clinical breast exam. 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 no headaches. No CP or SOB. no productive cough. no dysuria. no leg pain or swelling. She has been urinating since valdes came out. SHe is passing asg today. no stool or blood. She is takingin water/ice. she was up walking w/ PT. She had a block done yest and has no pain now. incision is c/d/i. NGT is bothering her. Exam GI Other: incision c/d/i. minimal distention + BS Objective Objective Clinical Data: Abnormal lab results 07/16/18 Range/Units 06:15 Potassium 2.6 L* (3.5-5.1) mmol/L Calcium 7.8 L (8.5-10.1) mg/dL Total Bilirubin 1.4 H (0.2-1.0) mg/dL Total Protein 5.4 L (6.4-8.2) g/dL Albumin 2.6 L (3.4-5.0) g/dL Vital Signs Temperature 36.8 C 07/16/18 16:15 Temperature Source Temporal Artery Scan 07/16/18 16:15 Pulse 81 07/16/18 16:04 Pulse 82 07/16/18 16:04 Respiratory Rate 18 07/16/18 16:04 Respiratory Effort 07/16/18 16:15 Respiratory Depth Normal 07/16/18 16:15 Respiratory Pattern Normal 07/16/18 16:15 Blood Pressure 154/69 H 07/16/18 16:04 Blood Pressure Mean 91 07/16/18 16:04 Blood Pressure Position Right Lateral 07/15/18 16:45 Pulse Oximetry 93 L 07/16/18 16:15 Respiratory End-tidal CO2 33 07/15/18 00:53 Oxygen Delivery Method Room Air 07/16/18 16:15 Oxygen Flow Rate 0 07/16/18 16:15 Pain Level 0 07/16/18 16:15 Intake & Output 07/15/18 07/16/18 07/16/18 23:59 11:59 23:59 Intake Total 1699.582 / 3350.416 1718.500 / 2177.667 459.167 / 2177.667 Output Total 640 / 1090 1375 / 2050 675 / 2050 Balance 1059.582 / 2260.416 343.500 / 127.667 -215.833 / 127.667 Weight 79.8 kg Intake: IV 1649.582 / 3300.416 1658.500 / 2057.667 399.167 / 2057.667 Oral 50 / 50 60 / 120 60 / 120 Output: Gastric Drainage 400 / 450 450 / 850 400 / 850 Right Nare 400 / 450 450 / 850 400 / 850 Urine 240 / 640 925 / 1200 275 / 1200 Other: Urine Color Yellow Straw Yellow Urine Appearance Clear Clear Clear Comment Indwelling valdes catheter in place. VALDES REMOVED AT 1005. NO VOID AT THIS TIME. VOIDING VIA BSC, CONTINENT. Gastric Occult Blood Right Nare Negative Voiding Methods Bedside Commode Laboratory Results WBC 15.02 k/cumm (4.4-10.8) H 07/15/18 06:23 RBC 3.77 m/cumm (4.00-5.20) L 07/15/18 06:23 Hgb 12.3 g/dL (12.0-15.5) D 07/15/18 06:23 Hct 36.2 % (36.0-46.0) 07/15/18 06:23 MCV 96.0 fL (80-95) H 07/15/18 06:23 MCH 32.6 pg (27.0-33.0) 07/15/18 06:23 MCHC 34.0 g/dL (32.0-36.0) 07/15/18 06:23 RDW 13.8 % (11.7-14.6) 07/15/18 06:23 Plt Count 161 x1000/uL (130-400) 07/15/18 06:23 MPV 10.1 fL (8.0-11.0) 07/15/18 06:23 Immature Gran % 0.3 07/15/18 06:23 Neutrophils % 92.8 07/15/18 06:23 Lymphocytes % 2.9 07/15/18 06:23 Monocytes % 3.9 07/15/18 06:23 Eosinophils % 0.0 07/15/18 06:23 Basophils % 0.1 07/15/18 06:23 Absolute Neutrophils 13.94 k/cumm (1.2-6.7) H 07/15/18 06:23 Absolute Lymphocytes 0.44 k/cumm (1.2-3.4) L 07/15/18 06:23 Absolute Monocytes 0.59 k/cumm (0.11-0.7) 07/15/18 06:23 Absolute Eosinophils 0.00 k/cumm (0.0-0.7) 07/15/18 06:23 Absolute Basophils 0.02 k/cumm (0.0-0.2) 07/15/18 06:23 Sodium 140 mmol/L (136-145) 07/16/18 06:15 Potassium 2.6 mmol/L (3.5-5.1) L* 07/16/18 06:15 Chloride 106 mmol/L (98-107) 07/16/18 06:15 Carbon Dioxide 23.9 mmol/L (21.0-32.0) 07/16/18 06:15 Anion Gap 10.1 mmol/L (3-11) 07/16/18 06:15 BUN 16 mg/dL (7-18) D 07/16/18 06:15 Creatinine 0.78 mg/dL (0.55-1.02) 07/16/18 06:15 Estimated GFR/1.73 m2 >= 60.00 (mL/min/1.73m2) 07/16/18 06:15 Glucose 95 mg/dL (70-100) 07/16/18 06:15 Calcium 7.8 mg/dL (8.5-10.1) L 07/16/18 06:15 Magnesium 1.8 mg/dL (1.8-2.4) 07/16/18 06:15 Total Bilirubin 1.4 mg/dL (0.2-1.0) H 07/16/18 06:15 AST 22 U/L (15-37) 07/16/18 06:15 ALT 32 U/L (12-78) 07/16/18 06:15 Alkaline Phosphatase 46 U/L (46-116) 07/16/18 06:15 Troponin I < 0.02 ng/mL (0.00-0.06) 07/14/18 17:15 Total Protein 5.4 g/dL (6.4-8.2) L 07/16/18 06:15 Albumin 2.6 g/dL (3.4-5.0) L 07/16/18 06:15 Lipase 169 U/L (73-393) 07/14/18 17:15 Urine Color Yellow (Yellow) 07/14/18 18:09 Urine Clarity Clear 07/14/18 18:09 Urine pH 7.0 (5-8) 07/14/18 18:09 Ur Specific [place] 1.010 (1.005-1.025) 07/14/18 18:09 Urine Protein Negative mg/dL (Negative) 07/14/18 18:09 Urine Ketones Negative mg/dL (Negative) 07/14/18 18:09 Urine Blood Trace-intact (Negative) H 07/14/18 18:09 Urine Nitrite Negative (Negative) 07/14/18 18:09 Urine Bilirubin Negative (Negative) 07/14/18 18:09 Urine Urobilinogen 0.2 EU/dL (Up TO 0.2) 07/14/18 18:09 Ur Leukocyte Esterase Trace (Negative) H 07/14/18 18:09 Urine RBC Negative (0-2) 07/14/18 18:09 Urine WBC 3-5 HPF (0-5) 07/14/18 18:09 Ur Epithelial Cells Negative HPF (Negative) 07/14/18 18:09 Urine Crystals Negative HPF (Negative) 07/14/18 18:09 Urine Bacteria Negative HPF (Negative) 07/14/18 18:09 Urine Casts Negative LPF (Negative) 07/14/18 18:09 Urine Mucus Negative (Negative) 07/14/18 18:09 Urine Other Negative (Negative) 07/14/18 18:09 Ur Culture Indicated? Yes 07/14/18 18:09 Urine Glucose Negative mg/dL (Negative) 07/14/18 18:09
[2018-07-17] VITALS (9 sets, daily range): BP systolic 143–186; BP diastolic 69–95; PULSE 67–83; RESP 16–25; TEMP 36.4–37; O2SAT 91–98
[2018-07-17] MEDS: ACETAMINOPHEN 1,000 MG/100 ML BTL 400 MG IVPB ×3 (04:13→19:36)
[2018-07-17] MEDS: PIPERACILLIN/TAZO 4.5 GM in Normal Saline 100 ML IVPB ×3 (04:14→19:37)
[2018-07-17 07:25] LABS: Abs Immature Grans 0.01 k/cumm (0.0-0.09); Absolute Basophil Count 0.02 k/cumm (0.0-0.2); Absolute Eosinophil Count 0.21 k/cumm (0.0-0.7); Absolute Lymphocyte Count 0.67 k/cumm (1.2-3.4); Absolute Monocyte Count 0.36 k/cumm (0.11-0.7); Absolute Neutrophil Count 5.58 k/cumm (1.2-6.7); Basophils % 0.3; Eosinophils % 3.1; HGB 11.4 g/dL (12.0-15.5); Immature Grans % 0.1; Lymphocytes % 9.8; Mean Corp. HGB Concentration 33.5 g/dL (32.0-36.0); Mean Corpuscular Hemoglobin 32.5 pg (27.0-33.0); Mean Corpuscular Volume 96.9 fL (80-95); Mean Platelet Volume 9.8 fL (8.0-11.0); Monocytes % 5.3; Neutrophils % 81.4; Platelet Count 164 x1000/uL (130-400); RBC 3.51 m/cumm (4.00-5.20); RBC Distribution Width 13.9 % (11.7-14.6); White Blood Cell Count 6.85 k/cumm (4.4-10.8)
[2018-07-17 07:51] LABS: Amylase 37 U/L (25-115); Anion Gap 9.5 mmol/L (3-11); BUN 9 mg/dL (7-18); CO2 25.5 mmol/L (21.0-32.0); CREATININE 0.72 mg/dL (0.55-1.02); Calcium 8.7 mg/dL (8.5-10.1); Chloride 104 mmol/L (98-107); Glucose 114 mg/dL (70-100); Magnesium 1.7 mg/dL (1.8-2.4); Potassium 3.2 mmol/L (3.5-5.1); Sodium 139 mmol/L (136-145)
[2018-07-17] MEDS: Normal Saline Flush 10 ML SYR IVP ×2 (09:40→19:38)
[2018-07-17] MEDS: Pantoprazole 40 MG VIAL IVP (09:40)
[2018-07-17] MEDS: Enoxaparin 40 MG/0.4 ML SYR SC (09:41)
[2018-07-17] MEDS: Nystatin CREAM 30 GM TUBE TP ×2 (09:41→23:13)
--- NOTE | 2018-07-17 11:02 | W.PM.PROGNOT ---
Date of Service Date of service: 07/17/18 Time of Service: 11:02 Assessment and Plan (1) Perforation of small intestine due to diverticulitis: Current visit: Yes Status: Acute POD # 2 s/p exp lap, jejunal resection, and anastomosis for a perforated jejunal diverticulitis. Stable. GI function returned. Will d/c NG and start on clear liquid diet. Resume some home meds including HCTZ for HTN. Correct lytes. WBC normalized. Transfer to med-surg floor. Discussed with patient and nurse. Subjective Interval history since last seen: Patient seen with family at bedside. Discussed with nurse. Patient tolerated NG clamped overnight. (+) flatus and small BMs overnight. No nause or vomiting. No complaints. Labs noted. Exam Const General: cooperative, comfortable, no acute distress and well developed Nutritional Appearance: well nourished Orientation: alert and oriented x3 HENMT Head: normocephalic and atraumatic Eyes Sclera: sclerae normal Resp Effort & Inspection: normal respiratory effort and able to speak in complete sentences Cardio Jugular venous pressure: no JVD Rate: regular rate Rhythm: regular rhythm GI Inspection: non-distended Palpation: soft, not firm, no guarding, not rigid and nontender Auscultation: normal bowel sounds Skin General skin exam: no rashes or lesions noted and no jaundice Neuro General: alert and oriented x3 Speech: speech normal Objective Objective Clinical Data: Abnormal lab results 07/17/18 07/17/18 Range/Units 06:45 06:45 RBC 3.51 L (4.00-5.20) m/cumm Hgb 11.4 L (12.0-15.5) g/dL Hct 34.0 L (36.0-46.0) % MCV 96.9 H (80-95) fL Absolute Lymphocytes 0.67 L (1.2-3.4) k/cumm Potassium 3.2 L (3.5-5.1) mmol/L Glucose 114 H (70-100) mg/dL Magnesium 1.7 L (1.8-2.4) mg/dL Vital Signs Temperature 36.4 C L 07/17/18 03:05 Temperature Source Temporal Artery Scan 07/17/18 03:05 Pulse 72 07/17/18 09:45 Pulse 74 07/17/18 09:45 Respiratory Rate 19 07/17/18 09:45 Respiratory Effort 07/17/18 03:05 Respiratory Depth Normal 07/17/18 03:05 Respiratory Pattern Normal 07/17/18 03:05 Blood Pressure 184/69 H 07/17/18 09:45 Blood Pressure Mean 96 07/17/18 09:45 Blood Pressure Position Supine 07/17/18 03:05 Pulse Oximetry 98 07/17/18 09:45 Respiratory End-tidal CO2 33 07/15/18 00:53 Oxygen Delivery Method Room Air 07/17/18 03:05 Oxygen Flow Rate 0 07/17/18 03:05 Pain Level 0 07/17/18 03:05 Intake & Output 07/16/18 07/16/18 07/17/18 11:59 23:59 11:59 Intake Total 1718.500 / 2397.667 679.167 / 2397.667 1733.333 / 1733.333 Output Total 1375 / 2700 1325 / 2700 1675 / 1675 Balance 343.500 / -302.333 -645.833 / -302.333 58.333 / 58.333 Weight 79.8 kg 79.1 kg Intake: IV 1658.500 / 2157.667 499.167 / 2157.667 1373.333 / 1373.333 Oral 60 / 240 180 / 240 360 / 360 Output: Gastric Drainage 450 / 850 400 / 850 0 / 0 Right Nare 450 / 850 400 / 850 0 / 0 Urine 925 / 1850 925 / 1850 1675 / 1675 Other: Urine Color Straw Yellow Yellow Urine Appearance Clear Clear Clear Urine Odor Normal None Comment DIAZ REMOVED AT 1005. NO VOID AT THIS TIME. VOIDING VIA BSC, CONTINENT. Mixed with scant stool. Stool Size Moderate Stool Characteristics Soft Liquid Brown Gastric Occult Blood Right Nare Negative Voiding Methods Toilet Bedside Commode Bedside Commode Laboratory Results WBC 6.85 k/cumm (4.4-10.8) 07/17/18 06:45 RBC 3.51 m/cumm (4.00-5.20) L 07/17/18 06:45 Hgb 11.4 g/dL (12.0-15.5) L 07/17/18 06:45 Hct 34.0 % (36.0-46.0) L 07/17/18 06:45 MCV 96.9 fL (80-95) H 07/17/18 06:45 MCH 32.5 pg (27.0-33.0) 07/17/18 06:45 MCHC 33.5 g/dL (32.0-36.0) 07/17/18 06:45 RDW 13.9 % (11.7-14.6) 07/17/18 06:45 Plt Count 164 x1000/uL (130-400) 07/17/18 06:45 MPV 9.8 fL (8.0-11.0) 07/17/18 06:45 Immature Gran % 0.1 07/17/18 06:45 Neutrophils % 81.4 07/17/18 06:45 Lymphocytes % 9.8 07/17/18 06:45 Monocytes % 5.3 07/17/18 06:45 Eosinophils % 3.1 07/17/18 06:45 Basophils % 0.3 07/17/18 06:45 Absolute Neutrophils 5.58 k/cumm (1.2-6.7) 07/17/18 06:45 Absolute Lymphocytes 0.67 k/cumm (1.2-3.4) L 07/17/18 06:45 Absolute Monocytes 0.36 k/cumm (0.11-0.7) 07/17/18 06:45 Absolute Eosinophils 0.21 k/cumm (0.0-0.7) 07/17/18 06:45 Absolute Basophils 0.02 k/cumm (0.0-0.2) 07/17/18 06:45 Sodium 139 mmol/L (136-145) 07/17/18 06:45 Potassium 3.2 mmol/L (3.5-5.1) L 07/17/18 06:45 Chloride 104 mmol/L (98-107) 07/17/18 06:45 Carbon Dioxide 25.5 mmol/L (21.0-32.0) 07/17/18 06:45 Anion Gap 9.5 mmol/L (3-11) 07/17/18 06:45 BUN 9 mg/dL (7-18) D 07/17/18 06:45 Creatinine 0.72 mg/dL (0.55-1.02) 07/17/18 06:45 Estimated GFR/1.73 m2 >= 60.00 (mL/min/1.73m2) 07/17/18 06:45 Glucose 114 mg/dL (70-100) H 07/17/18 06:45 Calcium 8.7 mg/dL (8.5-10.1) 07/17/18 06:45 Magnesium 1.7 mg/dL (1.8-2.4) L 07/17/18 06:45 Total Bilirubin 1.4 mg/dL (0.2-1.0) H 07/16/18 06:15 AST 22 U/L (15-37) 07/16/18 06:15 ALT 32 U/L (12-78) 07/16/18 06:15 Alkaline Phosphatase 46 U/L (46-116) 07/16/18 06:15 Troponin I < 0.02 ng/mL (0.00-0.06) 07/14/18 17:15 Total Protein 5.4 g/dL (6.4-8.2) L 07/16/18 06:15 Albumin 2.6 g/dL (3.4-5.0) L 07/16/18 06:15 Amylase 37 U/L (25-115) 07/17/18 06:45 Lipase 169 U/L (73-393) 07/14/18 17:15 Urine Color Yellow (Yellow) 07/14/18 18:09 Urine Clarity Clear 07/14/18 18:09 Urine pH 7.0 (5-8) 07/14/18 18:09 Ur Specific [place] 1.010 (1.005-1.025) 07/14/18 18:09 Urine Protein Negative mg/dL (Negative) 07/14/18 18:09 Urine Ketones Negative mg/dL (Negative) 07/14/18 18:09 Urine Blood Trace-intact (Negative) H 07/14/18 18:09 Urine Nitrite Negative (Negative) 07/14/18 18:09 Urine Bilirubin Negative (Negative) 07/14/18 18:09 Urine Urobilinogen 0.2 EU/dL (Up TO 0.2) 07/14/18 18:09 Ur Leukocyte Esterase Trace (Negative) H 07/14/18 18:09 Urine RBC Negative (0-2) 07/14/18 18:09 Urine WBC 3-5 HPF (0-5) 07/14/18 18:09 Ur Epithelial Cells Negative HPF (Negative) 07/14/18 18:09 Urine Crystals Negative HPF (Negative) 07/14/18 18:09 Urine Bacteria Negative HPF (Negative) 07/14/18 18:09 Urine Casts Negative LPF (Negative) 07/14/18 18:09 Urine Mucus Negative (Negative) 07/14/18 18:09 Urine Other Negative (Negative) 07/14/18 18:09 Ur Culture Indicated? Yes 07/14/18 18:09 Urine Glucose Negative mg/dL (Negative) 07/14/18 18:09
--- NOTE | 2018-07-17 11:16 | OT.INNT ---
Date of service: 07/17/18 Time of Service: 11:17 Occupational Therapy Notes 07/17/18 Pt performed ADLs prior to OT arrival. OT will continue skilled services on Friday. [facility]
[2018-07-17] MEDS: hydroCHLOROthiazide 25 MG TAB 50 MG PO (12:21)
[2018-07-17] MEDS: Meloxicam 15 MG TAB PO (12:21)
[2018-07-17] MEDS: Potassium Chloride 20 MEQ TABCR PO (12:22)
--- NOTE | 2018-07-17 14:52 | CHAPLAIN ---
Susanna was in bed when I visited, but said she had been up and walking around in the halls today. She hopes to get her NG tube out today. Susanna has a daughter in law and granddaughter who work here who have been in to visit her. She is looking forward to having some broth or jello later today. Susanna is a member of the [employer] and her bookbinder chief has been in to visit her.
--- NOTE | 2018-07-17 14:53 | PT.INTREAT ---
Date of service: 07/17/18 Time of Service: 14:53 PT Notes Inpatient Physical Therapy Treatment Note [facility] Date: 07/17/18 PRECAUTIONS: Fall SUBJECTIVE: Susanna is agreeable to participating in PT today. OBJECTIVE: PAIN: No c/o pain BED MOBILITY/TRANSFERS Sit-supine: S with HOB flat Sit-stand: S Stand-sit: S GAIT Assistive Device: FWW Weight bearing: Full Assist: S Distance: 300' in a.m.; 6' in p.m. Deviation: Patient refused continued gait training due to fatigue in p.m. THEREX: Patient completed several lower extremity strengthening exercises, in a standing position, as per flow sheet. TOILETING: Patient toileted with assist. STAIRS: Up/down 3x4 and 2x6 using B rails and a step to pattern with supervision ASSESSMENT: Patient tolerated session well without complaint of pain. Patient was able to tolerate a progression in distance with FWW support and supervision. Patient would benefit from continued gait training as well as strengthening for improved activity tolerance. PLAN: Continue with PT's POC TREATMENT CODE/TIME: Session 1: 30 minutes; 09407 x2 Session 2: 10 minutes; [id number]
--- NOTE | 2018-07-17 14:57 | PTTR_ITS ---
Date of service: 07/17/18 Time of Service: 14:53 PT Notes Inpatient Physical Therapy Treatment Note [facility] Date: 07/17/18 PRECAUTIONS: Fall SUBJECTIVE: Susanna is agreeable to participating in PT today. OBJECTIVE: PAIN: No c/o pain BED MOBILITY/TRANSFERS Sit-supine: S with HOB flat Sit-stand: S Stand-sit: S GAIT Assistive Device: FWW Weight bearing: Full Assist: S Distance: 300' in a.m.; 6' in p.m. Deviation: Patient refused continued gait training due to fatigue in p.m. THEREX: Patient completed several lower extremity strengthening exercises, in a standing position, as per flow sheet. TOILETING: Patient toileted with assist. STAIRS: Up/down 3x4 and 2x6 using B rails and a step to pattern with supervision ASSESSMENT: Patient tolerated session well without complaint of pain. Patient was able to tolerate a progression in distance with FWW support and supervision. Patient would benefit from continued gait training as well as strengthening for improved activity tolerance. PLAN: Continue with PT's POC TREATMENT CODE/TIME: Session 1: 30 minutes; [id number] x2 Session 2: 10 minutes; [id number]
--- NOTE | 2018-07-17 16:40 | NUR.NOTE ---
PATIENT MOVED OUT OF ICU INTO ROOM 212 AT 1620. PATIENT AMBULATED TO NEW ROOM WITH WALKER AND SBG. PATIENT IS ALERT AND ORIENTED X 3. HR REGULAR, PULSES X 4, BP 150'S. LCTA, NO COUGH, DENIES SOB. HYPO BS X 4 QUADRANTS. DENIES ABDOMINAL PAIN OR NAUSEA. TOLERATING CLEAR LIQUID DIET. PASSING FLATUS, REPORTS LOOSE STOOLS, LAST RIGHT BEFORE [place] [facility] [place] CONTINENT VOID. Nursing Note:
[2018-07-17] MEDS: MAGNESIUM SULFATE 2 GM/50 ML BAG IVPB (17:51)
--- NOTE | 2018-07-17 18:32 | PDOC.CMPRO ---
- If Service Date Differs Date of service: 07/17/18 Time of Service: 18:32 Care Management Progress Note S/O: Susanna was lying in bed when CM into visit. She makes good eye contact. She is aware she will transition to the medical surgical floor today. CM to continue to provide support to patient. A: 77 year old female admitted to [facility] 07/15/18 for perforated jejunum P: Susanna is status post perforated diverticulitis surgical intervention on 07/14/18. Status changed to acute today from ICU level of care. NG tube discontinued and diet advanced. She will discharged home when medically ready, additional services not anticipated at this time. Susanna has reported she would be agreeable to VNA supports upon discharge if recommended. CM to continue to provide support ongoing discharge planning and disposition.
--- NOTE | 2018-07-17 18:39 | CMPROGNOTE_ITS ---
- If Service Date Differs Date of service: 07/17/18 Time of Service: 18:32 Care Management Progress Note S/O: Susanna was lying in bed when CM into visit. She makes good eye contact. She is aware she will transition to the medical surgical floor today. CM to continue to provide support to patient. A: 77 year old female admitted to [facility] 07/15/18 for perforated jejunum P: Susanna is status post perforated diverticulitis surgical intervention on 07/14/18. Status changed to acute today from ICU level of care. NG tube discontinued and diet advanced. She will discharged home when medically ready, additional services not anticipated at this time. Susanna has reported she would be agreeable to VNA supports upon discharge if recommended. CM to continue to provide support ongoing discharge planning and disposition.
[2018-07-17] MEDS: Lactobacillus Acidophilus CAP 1 CAP PO (19:37)
[2018-07-17] MEDS: POTASSIUM CHLORIDE 10 MEQ/100 ML BAG 100 MEQ IVPB ×2 (19:37→21:32)
[2018-07-17] MEDS: Ondansetron 4 MG/2 ML VIAL IVP (19:38)
[2018-07-18] MEDS: ACETAMINOPHEN 1,000 MG/100 ML BTL 400 MG IVPB ×2 (04:14→11:15)
[2018-07-18] MEDS: PIPERACILLIN/TAZO 4.5 GM in Normal Saline 100 ML IVPB ×2 (04:14→11:53)
[2018-07-18 04:15] VITALS: BP 185/84; PULSE 80; RESP 18; TEMP 37.3; O2SAT 95
[2018-07-18 07:25] VITALS: BP 144/81; PULSE 65; RESP 18; TEMP 37.1; O2SAT 96
[2018-07-18 07:39] LABS: Anion Gap 9.1 mmol/L (3-11); BUN 7 mg/dL (7-18); CO2 25.9 mmol/L (21.0-32.0); Calcium 8.8 mg/dL (8.5-10.1); Chloride 103 mmol/L (98-107); Glucose 119 mg/dL (70-100); Magnesium 1.6 mg/dL (1.8-2.4); Potassium 3.4 mmol/L (3.5-5.1); Sodium 138 mmol/L (136-145)
[2018-07-18] MEDS: Enoxaparin 40 MG/0.4 ML SYR SC (08:05)
[2018-07-18] MEDS: hydroCHLOROthiazide 25 MG TAB 50 MG PO (08:06)
[2018-07-18] MEDS: Pantoprazole 40 MG TABCR PO (08:06)
[2018-07-18] MEDS: Meloxicam 15 MG TAB PO (08:10)
[2018-07-18] MEDS: Lactobacillus Acidophilus CAP 1 CAP PO (08:10)
[2018-07-18] MEDS: Nystatin CREAM 30 GM TUBE TP (08:11)
[2018-07-18] MEDS: Normal Saline Flush 10 ML SYR IVP ×2 (09:09→11:14)
--- NOTE | 2018-07-18 11:48 | PT.INTREAT ---
Date of service: 07/18/18 Time of Service: 10:00 PT Notes Inpatient Physical Therapy Treatment Note [facility] Date: 07/18/18 SUBJECTIVE: I think I am going home later today.: I did walk a full loop with nursing earlier this am, but I am willing to do a little more. OBJECTIVE: [] Supine-sit: S Sit-supine: S Sit-stand: [S Stand-sit:S GAIT Assistive Device:FWW Weight bearing: full Assist: S Distance: 150' THEREX: performed a global LE strength and stabilization routine. See flowsheet for details. ASSESSMENT: tolerated session well. No fatigue or LOB noted. PLAN: will continue progressing her strengthening to tolerance following PT POC. Possible d/c later today per pt. TREATMENT CODE/TIME: 25 min. tpx1, tax1.
--- NOTE | 2018-07-18 12:15 | PDOC.CMDIS ---
- If Service Date Differs Date of service: 07/18/18 Time of Service: 12:15 LACE Index Scoring Tool - Questions: Length of Stay (in days): 4 - 6 Acuity (Admit via E.D.?): Yes E.D. Visits: 1 - Answers: Total Score: 8 Risk of Readmission: Low Risk Care Management Discharge Reason for Hospitalization: Perforated diverticulitis Discharge Plan: Susanna will be discharged home today, with new home health PT. She will follow up with provider and surgical provider as directed. CM contacted home health to provide referral. Patient/Family Education Needs: Discharge education, limitations and follow up plan of care including ask me three and self management. Services Needed at Discharge: Home Health Care Services, Physical Therapy
--- NOTE | 2018-07-18 12:37 | PDOC.HHF2F ---
1. Encounter Date and Reason I certify that LAURIE UNDERWOOD was seen by Chika Elizabeth on 07/18/18 and that I had a [id number] encounter with this patient that meets the physician face to face encounter requirements. 2. Clinical Findings Supporting Skilled Need and Homebound Status I certify that home health services are medically necessary, include either intermittent chcf and/or physical/speech therapy, and that this patient is homebound in that absences from the home require considerable and taxing effort and are infrequent or of short duration, or are attributable to the need to receive medical care. [X] (a) Attached documentation from encounter provides clinical findings supporting skilled need and homebound status (including what assistance patient requires to leave the home). The encounter with the patient was in whole, or in part, for the following medical condition, which is the primary reason for home health care: PER JEJUNUM [facility]: Physical Therapy: Patient was evaluated by inpatient physical therapy and recommendation was made for outpatient physical therapy for strengthening and increased mobility to return patient to baseline. Speech Therapy: Homebound: Patient lives alone and is homebound due to limited mobility/ loss of strength following abdominal surgery. Patient requires assistance with transfers and ambulation. 3. Certification and Authentication I certify that I composed the above information based on my clinical judgement relating to this patient's medical condition and, if applicable, clinical findings communicated to me by the NPP or inpatient physician who performed the Home Health Referral. All further orders will be obtained through Dotty Estrella NP (Community Based Physician - PCP)
--- NOTE | 2018-07-18 12:42 | HHF2F_ITS ---
1. Encounter Date and Reason I certify that LAURIE UNDERWOOD was seen by Chika Elizabeth on 07/18/18 and that I had a [id number] encounter with this patient that meets the physician face to face encounter requirements. 2. Clinical Findings Supporting Skilled Need and Homebound Status I certify that home health services are medically necessary, include either intermittent intermediate and/or physical/speech therapy, and that this patient is homebound in that absences from the home require considerable and taxing effort and are infrequent or of short duration, or are attributable to the need to receive medical care. [X] (a) Attached documentation from encounter provides clinical findings supporting skilled need and homebound status (including what assistance patient requires to leave the home). The encounter with the patient was in whole, or in part, for the following medical condition, which is the primary reason for home health care: PER [facility]: Physical Therapy: Patient was evaluated by inpatient physical therapy and recommendation was made for outpatient physical therapy for strengthening and increased mobility to return patient to baseline. Speech Therapy: Homebound: Patient lives alone and is homebound due to limited mobility/ loss of strength following abdominal surgery. Patient requires assistance with transfers and ambulation. 3. Certification and Authentication I certify that I composed the above information based on my clinical judgement relating to this patient's medical condition and, if applicable, clinical findings communicated to me by the NPP or inpatient physician who performed the Home Health Referral. All further orders will be obtained through Dotty Estrella NP (Community Based Physician - PCP)
--- NOTE | 2018-07-18 13:06 | DSE_ITS ---
Date of service: 07/18/18 Time of Service: 13:02 DS: Diagnosis Discharge Diagnosis (1) Perforation of small intestine due to diverticulitis: Status: Acute Discharge Plan Disposition Patient Disposition: HOME W/HOME HEALTH SERVICE Condition: Good Discharge Details Chief Complaint: Abd Prob Reason For Visit: PER JEJUNUM Admit Date/Time: 07/15/18 00:40 Admit Provider: Elvi Maria Attending Provider: Elvi Maria Primary Care Provider: Dotty Estrella [facility] Course: 77 Y/O female who was admitted on 07/15/18 for abdominal pain and found to have small bowel diverticulitis with contained perforation on CT. Patient underwent an exploratory laparotomy and jejunal resection with anastomosis which she tolerated well. Post-operatively, she was monitored in the ICU and subsequently transferred to the floor. NG was placed at the time of surgery and subsequently clamped and removed as her GI function returned. By 07/18/18, the patient was having bowel movements and able to tolerate a regular diet. She was evaluated by physical therapy while in the hospital with recommendations for outpatient home PT to strengthen and regain mobility. Patient denied any abdominal pain which was controlled on IV Tylenol during her hospitalization. Patient and family seen at bedside on 07/18/18. Patient agreeable with discharge plans with home health care for home PT. Instructed patient that she may use OTC Tylenol PRN as directed for pain. Reminded patient that she should be scheduled for a follow-up MRI of her thoracic spine as an outpatient per CT report on admission. Home Meds and New Rx's Prescriptions: Continued multivitamin [Multi-Day] 1 EACH tablet 1 ea PO DAILY RF: 0 hydrochlorothiazide 50 MG tablet 50 mg PO DAILY RF: 0 meloxicam 15 MG tablet 15 mg PO DAILY RF: 0 ascorbic acid (vitamin C) [Vitamin C] 500 MG tablet 500 mg PO DAILY RF: 0 omeprazole [Prilosec] 20 MG capsule,delayed release(DR/EC) 20 mg PO DAILY RF: 0 zolpidem [Ambien] 5 MG tablet 10 mg PO HS RF: 0 triamcinolone acetonide 15 GM cream 15 gm Topical PRN PRNRF: 0 omega-3 fatty acids-fish oil 1 EACH capsule 1 ea PO DAILY RF: 0 fluticasone propionate 16 GM spray,suspension 16 gm NS PRN PRNRF: 0 Discharge Instructions Additional Instructions: May use over the counter Tylenol (acetaminophen) as directed if needed for pain. May climb stairs as tolerated. No lifting > 20 pounds. Follow-up with surgery/PCP re: outpatient MRI of thoracic spine. Referrals: Elvi Maria DO [OSTEOPATHIC DOCTOR] - (Post-op follow-up/ staple removal on , 07/23/18.) Activity:: NO lifting > 20 pounds. Equipment/Supplies:: Walker Diet:: As Tolerated Discharge Orders Discharge Orders: Discharge Order (Routine); Ordered 07/18/18 Ordered By: Chika Elizabeth Exam Const General: cooperative, comfortable and no acute distress Nutritional Appearance: well nourished Orientation: alert and oriented x3 HENMT Head: normocephalic and atraumatic Eyes Sclera: sclerae normal Resp Effort & Inspection: normal respiratory effort and able to speak in complete sentences Cardio Jugular venous pressure: no JVD Rate: regular rate Rhythm: regular rhythm GI Inspection: non-distended Palpation: soft, not firm, no guarding, no masses and nontender Auscultation: normal bowel sounds Skin General skin exam: no rashes or lesions noted and no jaundice Neuro General: alert and oriented x3 Speech: speech normal DS: Data Vitals/I&O Vitals and I&O: Vital Signs Temperature 37.1 C 07/18/18 07:25 Temperature Source Tympanic 07/18/18 07:25 Pulse 65 07/18/18 07:25 Pulse Rhythm Regular 07/18/18 08:10 Pulse 67 07/17/18 11:54 Respiratory Rate 18 07/18/18 07:25 Respiratory Effort Non-Labored 07/18/18 08:10 Respiratory Depth Normal 07/18/18 08:10 Respiratory Pattern Normal 07/18/18 08:10 Blood Pressure 144/81 H 07/18/18 07:25 Blood Pressure Mean 117 07/17/18 11:54 Blood Pressure Position Sitting 07/17/18 08:30 Pulse Oximetry 96 07/18/18 07:25 Respiratory End-tidal CO2 33 07/15/18 00:53 Oxygen Delivery Method Room Air 07/18/18 07:25 Oxygen Flow Rate 0 07/18/18 07:25 Pain Level 0 07/18/18 11:15 Intake & Output 07/17/18 07/18/18 07/18/18 23:59 11:59 23:59 Intake Total 4160 / 5893.333 1883.333 / 1883.333 Output Total 550 / 2225 Balance 3610 / 3668.333 1883.333 / 1883.333 Weight 70.8 kg Intake: IV 3560 / 4933.333 1123.333 / 1123.333 Oral 600 / 960 760 / 760 Output: Urine 550 / 2225 Other: Urine Color Yellow Urine Appearance Clear Clear Urine Odor Normal Comment mixed with stool. Void x 1 missed hat Stool Size Large Moderate Stool Characteristics Liquid Soft Brown Brown Voiding Methods Toilet Toilet Labs on day of discharge: Labs from last 24 hours 07/18/18 06:47 Sodium 138 Potassium 3.4 L Chloride 103 Carbon Dioxide 25.9 Anion Gap 9.1 BUN 7 Creatinine 0.70 Estimated GFR/1.73 m2 >= 60.00 Glucose 119 H Calcium 8.8 Magnesium 1.6 L PFSH Medical History Abnormal CT of spine (Acute) Perforation of small intestine due to diverticulitis (Acute) Diverticulitis of jejunum (Acute) Degenerative joint disease Depression Diverticulosis GERD (gastroesophageal reflux disease) Hyperlipemia Hypertension Insomnia Mitral valve insufficiency Surgical History Ligation of fallopian tube Replacement of total knee joint bunionectomy gangilion cyst removal of ovary Family History Mother Personal history of malignant neoplasm Father Personal history of malignant neoplasm Social History Smoking/Tobacco Use Status: Never Alcohol Intake: current Alcohol Intake frequency: 0-2 drinks per day Drug use: Never Substance use type: does not use Do you feel safe at home: Yes Do you feel safe in your relationship?: Yes
--- NOTE | 2018-07-20 08:35 | OTDS_ITS ---
Date of service: 07/20/18 Time of Service: 08:34 Occupational Therapy Notes Occupational Therapy Inpatient Discharge Summary Date: 07/20/18 Dates of Service: 07/15/18-07/20/18 Referring Doctor:RAFAEL Dos Santos OT Orders: Please evaluate and treat Precautions: Fall, standard PATIENT PROFILE/ADMITTING DIAGNOSIS: Pt is a 77 year old female who presented to the ER on 07/14/ with abdominal pain. After tests were performed she was diagnosed with diverticulitis with a perforated jejunum. She underwent surgery for peritonitis/perforated jejunum w/ micro abscess earlier this morning. Past Medical History: Degenerative joint disease Depression Diverticulosis GERD (gastroesophageal reflux disease) Hyperlipemia Hypertension Insomnia Mitral valve insufficiency Surgical History Ligation of fallopian tube Replacement of total knee joint bunionectomy gangilion cyst removal of ovary Social History/Home Situation: Pt refers to herself as a who lives alone in a private home with supportive friends and family in her life. She states that at her baseline level of function she is (I) all ADLs/IADLs, she is currently performing community mobility and transportation (I). Equipment owned/DME: grab bars, walk in shower, shower bench This document serves as a summary of care, no skilled OT services provided for this documentation. SUBJECTIVE: NT OBJECTIVE: Dates of Service: 07/15/18-07/20/18 ROM: RUE AROM WNL L UE AROM shoulder flexion 50* d/t a chronic rotator cuff issue, PROM shoulder flexion WNL, elbow WNL, hand and digits WNL STRENGTH: RUE 4+/5 throughout globally LUE Shoulder flexion 4/5, lang interpreter and elbow 4+/5 FUNCTIONAL MOBILITY/ADLS: BATHING: Sitting in chair with max (A) set up Upper Body: (I) face, min (A) arms d/t IVs/telemetry, (I) abdomen and under breasts Lower Body: (I) (L) leg, max (A) (L) foot, max (A) (R) leg/foot DRESSING: Sitting in chair Upper Extremity: Min (A) with hospital gown don and doffing d/t medical equipment Lower Extremity: Max (A) sock don and doffing (R) LE, (I) don and doffing sock (L) LE ASSESSMENT: Patient is a 77-year-old female referred to occupational therapy services with diagnosis of diverticulitis with perforated jejunum. Pt was seen for 2 skilled OT services. She was able to demonstrate increased (I) in ADL s/IADLs. She was discharged home with HH services on 07/18/18. GOALS- Met 1. Transfers CGA, LRD 2. Dressing Sitting in chair mod (I) with adaptive equipment 3. Bathing Sitting in chair (I) 4. Toileting (I) on commode PLAN OF CARE/TREATMENT PLAN: Discharge from skilled OT services. DISCHARGE RECOMMENDATIONS Pt was discharged home with HH services on 07/18/18 TREATMENT TIME/MINUTES/CODES N/A Bina Sandhu, OTR/L [facility]
--- NOTE | 2018-07-20 16:46 | INDS_ITS ---
Date of service: 07/20/18 PT Notes Inpatient Physical Therapy Discharge Summary Dates: 07/20/2018 Dates of Service: 07/15/2018 through 07/18/2018 This is a clinical summary of care provided on the duration of dates listed above. No charge was made in the completion of this documentation. Referring Doctor: Elvi Maria MD PT Orders: PT CONSULT: S/P Ex Lap. Weak. Walking] Precautions: Fall. Standard. Patient Profile/Admitting Diagnosis: Patient is a 77-year-old female who presented to the ED with abdominal pain on 07/14/2018. Patient was diagnosed with diverticulitis with perforation of small intestine S/P jenunal resection and anastomoses. Patient was admitted to ICU post op in order to monitor cardiac function. PMHX: Medical History Perforation of small intestine due to diverticulitis (Acute) Diverticulitis of jejunum (Acute) Degenerative joint disease Depression Diverticulosis GERD (gastroesophageal reflux disease) Hyperlipemia Hypertension Insomnia Mitral valve insufficiency Surgical History Ligation of fallopian tube Replacement of total knee joint bunionectomy gangilion cyst removal of ovary Social History/Home Situation: Patient lives in a a floor house with 3 steps to enter without rails. She was independent with all aspects of ADLs without the need for assistive ambulatory device nor adaptive equipment. She still drives. Current Functional Limitations: Need for assistance with bed mobility, transfers, and ambulation using FWW. Social History/Home Situation: Pt refers to herself as a who lives alone in a private home with supportive friends and family in her life. She states that at her baseline level of function she is (I) all ADLs/IADLs, she is currently performing community mobility and transportation (I). Equipment owned/DME: grab bars, walk in shower, shower bench Equipment Owned/DME: [facility] Subjective: NT Objective: General Observation: NT Mental Status:NT Pain: NT ROM: Right Upper Extremity: Shoulder Flexion WFL. Shoulder abduction WFL. Elbow flexion WFL. Wrist flexion WFL. Functional opening and closing of hand WFL. Left Upper Extremity: Shoulder Flexion 0-50. Shoulder abduction 0-45. Elbow flexion WFL. Wrist flexion WFL. Functional opening and closing of hand WFL. Right Lower Extremity: Hip flexion 0-110. Hip abduction WFL. Knee flexion WFL. Ankle dorsiflexion WFL. Ankle plantarflexion WFL. Left Lower Extremity: Hip flexion 0-120. Hip abduction WFL. Knee flexion WFL. Ankle dorsiflexion WFL. Ankle plantarflexion WFL. Strength: Right Upper Extremity: Shoulder flexors 4/5. Shoulder abductors 4/5. Elbow flexors 4/5. Elbow extensors 4/5. Storage Facility Rental Clerk strong. Left Upper Extremity: Shoulder flexors3-/5. Shoulder abductors3-/5. Elbow flexors 4/5. Elbow extensors 4/5. Storage Facility Rental Clerk strong. Right Lower Extremity: Hip flexors 3-/5. Hip abductors 4/5. Knee flexors 4/5. Knee extensors4-/5. Ankle dorsiflexors 4-/5. Ankle plantarflexors 4/5. Left Lower Extremity:Hip flexors 3-/5. Hip abductors 4/5. Knee flexors 4/5. Knee extensors 4/5. Ankle dorsiflexors4/5. Ankle plantarflexors 4/5. Sensation: Intact as to pain and pressure on BLE Bed Mobility/Transfers: Supine to sit S Sit to supine S Sit to stand S Stand to sit S Bed to chair S Chair to bed S Gait: Patient completed 150 feet of level surface ambulation with FWB and supervision assist of EVENT SALES REPRESENTATIVE. Please see PT notes on 07/18/2018. Balance: Static Sitting: Good Dynamic Sitting: Fair Static Standing: Fair Dynamic Standing: Assessment: Patient is a 77-year-old female who presented to the ED with abdominal pain on 07/14/2018. Patient was diagnosed with diverticulitis with perforation of small intestine S/P jenunal resection and anastomoses. Patient was admitted to ICU post op in order to monitor cardiac function. Patient presents with clinical signs and symptoms consistent with current/admitting diagnoses that have resulted to mobility limitations, gait instability, generalized weakness, and impairment of motor control as demonstrated by the following impairment level findings: 1. Decreased strength to B LE major muscle groups 2. Impaired sitting/standing balance 3. Impaired activity tolerance Impairments are contributing to the following functional limitations: 1. Dependent bed mobility skills 2. Increased dependence with transfers 3. Inability to safely ambulate without assistive device and physical assistance 4. Increase completion time for mobility ADL performance 5. Increased fall risk 6. Inability to negotiate steps alone safely Goals: Goals X1 week 1. Supine-Sit independent NOT MET 2. Sit-Supine independent NOT MET 3. Sit-Stand independent NOT MET 4. Stand-Sit independent NOT MET 5. Bed-Chair independent NOT MET 6. Chair-Bed independent NOT MET 7. Independent gait on level surface with use of least restrictive device for at least 300 feet without report of abdominal pain nor dyspnea NOT MET 8. Independent stair negotiation while holding onto bilateral rails for at least 5 steps without report of abdominal pain nor dyspnea NOT MET 9. Independent with home exercise program NOT MET 10. Good static and dynamic standing balance/tolerance NOT MET DISCHARGE RECOMMENDATIONS: Patient may benefit from home health PT services in order to premorbid level without an assistive. Patient may benefit from a front wheeled walker for fall reduction and to smooth transition to home. TREATMENT CODE/TIME: NC. Thank you for this referral. Samantha Gant, PT, DPT, CLT [facility]
== END 2018-07-18 15:31 | disposition home health service (06) | DRG 329 ==
LOC: ER 21:24 → SUR 22:19 → ICU 07-15 01:04 → MS 07-17 20:02 → ICU 07-27 07:41
PROVIDERS: Admitting Provider Surgery; Emergency Provider Physician Assistant; PCP Nurse Practitioner Family; Visit Provider Surgery
PROC: 0DBA0ZZ Excision of Jejunum, Open Approach (ICD-10-PCS; CPT 49000; principal; 2018-07-14 22:30)
DX: K57.00 Diverticulitis of small intestine with perforation and abscess without bleeding (principal); K65.8 Other peritonitis; K65.1 Peritoneal abscess; K65.0 Generalized (acute) peritonitis; K21.9 Gastro-esophageal reflux disease without esophagitis; I10 Essential (primary) hypertension; E78.5 Hyperlipidemia, unspecified; B37.2 Candidiasis of skin and nail; G89.18 Other acute postprocedural pain; E87.6 Hypokalemia; R93.7 Abnormal findings on diagnostic imaging of other parts of musculoskeletal system
CPT/HCPCS: 44120; 36415; 51701; 74177; 80048; 80053; 83690; 93005; 96361; 96365; 97110; 97162; 97166; 97530; 97535; 99220; 99223; 99285; J1650; NC; 81003; 81015; 82150; 83735; 84484; 85025; 87086; 88307; 93010; J0131; J2250; J2405; J2543; J3010; J3480; J3490

== ENCOUNTER → 2018-07-23 13:48 | Outpatient (BNVA) | payer MEDICARE, SELFPAY | PROVIDERS: PCP Nurse Practitioner Family; Referring Provider Nurse Practitioner Family; Visit Provider Surgery | DX: Z48.89 Encounter for other specified surgical aftercare (principal) ==

== ENCOUNTER 2018-07-30 12:59 | Outpatient (REF) | payer MEDICARE, SELFPAY ==
[2018-07-30 21:05] LABS: Abs Immature Grans 0.05 k/cumm (0.0-0.09); Absolute Basophil Count 0.03 k/cumm (0.0-0.2); Absolute Eosinophil Count 0.25 k/cumm (0.0-0.7); Absolute Lymphocyte Count 0.73 k/cumm (1.2-3.4); Absolute Monocyte Count 1.02 k/cumm (0.11-0.7); Absolute Neutrophil Count 10.89 k/cumm (1.2-6.7); Basophils % 0.2; Eosinophils % 1.9; HCT 37.7 % (36.0-46.0); HGB 12.9 g/dL (12.0-15.5); Immature Grans % 0.4; Lymphocytes % 5.6; Mean Corp. HGB Concentration 34.2 g/dL (32.0-36.0); Mean Corpuscular Hemoglobin 32.7 pg (27.0-33.0); Mean Corpuscular Volume 95.4 fL (80-95); Mean Platelet Volume 9.9 fL (8.0-11.0); Monocytes % 7.9; Platelet Count 298 x1000/uL (130-400); RBC 3.95 m/cumm (4.00-5.20); RBC Distribution Width 13.3 % (11.7-14.6); White Blood Cell Count 12.96 k/cumm (4.4-10.8)
[2018-07-30 21:42] LABS: ALT 42 U/L (12-78); AST 22 U/L (15-37); Albumin 3.7 g/dL (3.4-5.0); Alkaline Phosphatase 88 U/L (46-116); Anion Gap 9.7 mmol/L (3-11); BUN 18 mg/dL (7-18); CO2 27.3 mmol/L (21.0-32.0); CREATININE 0.77 mg/dL (0.55-1.02); Calcium 9.3 mg/dL (8.5-10.1); Chloride 95 mmol/L (98-107); Glucose 117 mg/dL (70-100); Sodium 132 mmol/L (136-145)
[2018-07-30 21:57] LABS: Potassium 2.9 mmol/L (3.5-5.1)
== END 2018-07-30 13:19 ==
LOC: NCHCN 12:59
PROVIDERS: PCP Nurse Practitioner Family; Visit Provider Nurse Practitioner Family
DX: R19.7 Diarrhea, unspecified; R53.83 Other fatigue
CPT/HCPCS: 80053; 85025; 87324

== ENCOUNTER → 2018-08-03 11:29 | Outpatient (BNVA) | payer MEDICARE, SELFPAY | PROVIDERS: PCP Nurse Practitioner Family; Referring Provider Nurse Practitioner Family; Visit Provider Surgery | DX: Z48.815 Encounter for surgical aftercare following surgery on the digestive system (principal); K57.00 Diverticulitis of small intestine with perforation and abscess without bleeding; A04.72 Enterocolitis due to Clostridium difficile, not specified as recurrent ==

== ENCOUNTER 2018-08-04 10:04 | Outpatient (REF) | payer MEDICARE, SELFPAY ==
[2018-08-04 21:48] LABS: Anion Gap 12.1 mmol/L (3-11); BUN 20 mg/dL (7-18); CO2 24.9 mmol/L (21.0-32.0); CREATININE 0.71 mg/dL (0.55-1.02); Chloride 98 mmol/L (98-107); Glucose 127 mg/dL (70-100); Potassium 3.8 mmol/L (3.5-5.1); Sodium 135 mmol/L (136-145); TSH 2.23 uIU/mL (0.358-3.74)
[2018-08-04 22:02] LABS: HCT 36.2 % (36.0-46.0); HGB 12.1 g/dL (12.0-15.5); Mean Corp. HGB Concentration 33.4 g/dL (32.0-36.0); Mean Corpuscular Hemoglobin 31.8 pg (27.0-33.0); Mean Corpuscular Volume 95.3 fL (80-95); Platelet Count 317 x1000/uL (130-400); RBC Distribution Width 13.5 % (11.7-14.6); White Blood Cell Count 6.86 k/cumm (4.4-10.8)
== END 2018-08-04 10:24 ==
LOC: NCHCN 10:04
PROVIDERS: PCP Nurse Practitioner Family; Visit Provider Nurse Practitioner Family
DX: R53.83 Other fatigue (principal); F32.9 Major depressive disorder, single episode, unspecified; A04.72 Enterocolitis due to Clostridium difficile, not specified as recurrent
CPT/HCPCS: 80048; 85027; 84443

== ENCOUNTER → 2018-08-17 10:24 | Outpatient (BNVA) | payer MEDICARE, SELFPAY | PROVIDERS: PCP Nurse Practitioner Family; Referring Provider Nurse Practitioner Family; Visit Provider Surgery | DX: Z09 Encounter for follow-up examination after completed treatment for conditions other than malignant neoplasm (principal); A04.72 Enterocolitis due to Clostridium difficile, not specified as recurrent ==

== ENCOUNTER → 2018-09-01 09:52 | Outpatient (BNVA) | payer MEDICARE, SELFPAY | PROVIDERS: PCP Nurse Practitioner Family; Referring Provider Nurse Practitioner Family; Visit Provider Surgery | DX: Z48.815 Encounter for surgical aftercare following surgery on the digestive system (principal); K57.00 Diverticulitis of small intestine with perforation and abscess without bleeding; I10 Essential (primary) hypertension ==

== ENCOUNTER 2018-09-15 10:22 | Outpatient (REF) | payer MEDICARE, SELFPAY ==
[2018-09-15 21:15] LABS: Anion Gap 12.1 mmol/L (3-11); BUN 25 mg/dL (7-18); CO2 25.9 mmol/L (21.0-32.0); Calcium 9.2 mg/dL (8.5-10.1); Chloride 102 mmol/L (98-107); Glucose 115 mg/dL (70-100); Potassium 3.4 mmol/L (3.5-5.1); Sodium 140 mmol/L (136-145)
== END 2018-09-15 10:42 ==
LOC: NCHCN 10:22
PROVIDERS: PCP Nurse Practitioner Family; Visit Provider Nurse Practitioner Family
DX: R53.83 Other fatigue (principal); E87.6 Hypokalemia; M12.812 Other specific arthropathies, not elsewhere classified, left shoulder; R53.81 Other malaise
CPT/HCPCS: 80048

== ENCOUNTER 2018-09-29 14:10 | Outpatient (REF) | payer MEDICARE, SELFPAY ==
[2018-09-29 22:18] LABS: Magnesium 1.6 mg/dL (1.8-2.4)
== END 2018-09-29 14:30 ==
LOC: NCHCN 14:10
PROVIDERS: PCP Nurse Practitioner Family; Visit Provider Nurse Practitioner Family
DX: E87.6 Hypokalemia (principal)
CPT/HCPCS: 83735

== ENCOUNTER 2018-11-10 12:16 | Outpatient (REF) | payer MEDICARE, SELFPAY ==
[2018-11-10 21:57] LABS: Magnesium 1.4 mg/dL (1.8-2.4); Potassium 3.6 mmol/L (3.5-5.1)
== END 2018-11-10 12:36 ==
LOC: NCHCN 12:16
PROVIDERS: PCP Nurse Practitioner Family; Visit Provider Nurse Practitioner Family
DX: E87.6 Hypokalemia (principal); R89.9 Unspecified abnormal finding in specimens from other organs, systems and tissues
CPT/HCPCS: 83735; 84132

== ENCOUNTER 2019-02-02 10:02 | Outpatient (REF) | payer MEDICARE, SELFPAY ==
[2019-02-02 21:24] LABS: Magnesium 1.7 mg/dL (1.8-2.4); Potassium 3.4 mmol/L (3.5-5.1)
== END 2019-02-02 10:22 ==
LOC: NCHCN 10:02
PROVIDERS: PCP Nurse Practitioner Family; Visit Provider Nurse Practitioner Family
DX: I10 Essential (primary) hypertension (principal); R53.81 Other malaise; K21.9 Gastro-esophageal reflux disease without esophagitis
CPT/HCPCS: 83735; 84132

== ENCOUNTER 2019-02-09 01:10 | Outpatient (CLI) | payer MEDICARE, SELFPAY ==
--- NOTE | 2019-02-09 10:31 | DI.MAMMO_ITS ---
EXAM: MG MAMMO SCREENING CLINICAL HISTORY: SCREENING, [facility], Z00.00. TECHNIQUE: Full field digital CC and MLO mammographic images were obtained with 3D tomosynthesis and utilizing computer aided detection (CAD). COMPARISON: 2009 to 2017 FINDINGS: Breast density: C, heterogeneously dense. Right breast: Masses/Architectural Distortion: None seen. Microcalcifications: No suspicious pleomorphic-type calcifications are seen. Skin Thickening/Nipple Retraction: None. Axilla: Unremarkable. Left breast: There is a 6 millimeter nodule seen centrally in the left breast. The borders appear ma inly circumscribed. There are a few associated calcifications. Spot compression views and ultrasoun d are recommended for further evaluation. The axilla is unremarkable. There is no skin thickening o r nipple retraction. IMPRESSION: 1. Right breast: BI-RADS category 1, negative. No significant interval change with no specific featu res of malignancy noted. 2. Left breast: BI-RADS category 0. Spot compression views and ultrasound are requested for further e valuation of a nodule in the central left breast. BI-RADS Cat 0 - Assessment Incomplete: Need additional imaging evaluation Breast Density - Category C - Heterogeneously dense A negative radiographic report should not delay biopsy if a dominant or clinically suspicious mass is present. Up to ten percent of cancers are not identified on mammography. A negative report may reinforce clinical impression. Adenosis and dense breasts may obscure an underlying neoplasm. False positive reports average 6 to 10%. Patient will receive a letter notifying them of these results.
== END 2019-02-09 01:30 ==
PROVIDERS: PCP Nurse Practitioner Family; Visit Provider Nurse Practitioner Family
DX: Z12.31 Encounter for screening mammogram for malignant neoplasm of breast (principal); R92.8 Other abnormal and inconclusive findings on diagnostic imaging of breast
CPT/HCPCS: 77063; 77067

== ENCOUNTER 2019-02-15 01:02 | Outpatient (CLI) | payer MEDICARE, SELFPAY ==
--- NOTE | 2019-02-15 13:29 | DI.MAMMO_ITS ---
EXAM: US BREAST LT LIMITEDAND MAMMOGRAM CALL BACK VIEWS CLINICAL HISTORY: F/U ABNL MAMMO, 6 MM NODULE CENTRALLY TECHNIQUE: Ultrasound performed using standard protocol. Additional mammographic images are interpr eted according to the usual protocol including tomosynthesis and 2D imaging. COMPARISON: MAMMO SCREEN CALL BACK UNI from 02/15/2019 FINDINGS: Cc and an MLO spot compression views with tomography were performed. There is a circumscribed nodul e in the central left breast slightly lateral to the nipple in the central tissue. It measures 8 by 6 x 6 millimeters. Left breast ultrasound shows a circumscribed, ovoid nodule measuring 6 x 3 x 8 millimeters which is homogeneously hypoechoic. It has a benign appearance and may represent a fibroadenoma versus intrama mmary lymph node. IMPRESSION: Category 3, probably benign mammogram and ultrasound. A six-month follow-up left mammogram and lef t breast ultrasound is requested for further evaluation. BI-RADS Cat 3 - 6 month - Probably Benign Finding: Recommend follow-up mammography in 6 months. Breast Density - Category C - Heterogeneously dense.
== END 2019-02-15 01:22 ==
PROVIDERS: PCP Nurse Practitioner Family; Visit Provider Nurse Practitioner Family
DX: Z12.31 Encounter for screening mammogram for malignant neoplasm of breast (principal); R92.8 Other abnormal and inconclusive findings on diagnostic imaging of breast; D24.2 Benign neoplasm of left breast
CPT/HCPCS: 76642; 77063; 77067

== ENCOUNTER 2019-03-01 11:29 | Outpatient (REF) | payer MEDICARE, SELFPAY ==
[2019-03-01 22:56] LABS: HCT 37.1 % (36.0-46.0); HGB 12.7 g/dL (12.0-15.5); Mean Corp. HGB Concentration 34.2 g/dL (32.0-36.0); Mean Corpuscular Hemoglobin 32.6 pg (27.0-33.0); Mean Corpuscular Volume 95.1 fL (80-95); Mean Platelet Volume 10.1 fL (8.0-11.0); Platelet Count 227 x1000/uL (130-400); White Blood Cell Count 5.44 k/cumm (4.4-10.8)
[2019-03-01 22:58] LABS: Anion Gap 10.8 mmol/L (3-11); CO2 27.2 mmol/L (21.0-32.0); CREATININE 0.81 mg/dL (0.55-1.02); Calcium 9.7 mg/dL (8.5-10.1); Chloride 102 mmol/L (98-107); Glucose 107 mg/dL (74-106); Potassium 3.6 mmol/L (3.5-5.1); Sodium 140 mmol/L (136-145)
[2019-03-01 23:17] LABS: BUN 27 mg/dL (7-18)
== END 2019-03-01 11:49 ==
LOC: NCHCN 11:29
PROVIDERS: PCP Nurse Practitioner Family; Visit Provider Nurse Practitioner Family
DX: I10 Essential (primary) hypertension (principal); R53.83 Other fatigue; K21.9 Gastro-esophageal reflux disease without esophagitis
CPT/HCPCS: 80048; 85027

== ENCOUNTER 2019-05-17 18:42 | Outpatient (REF) | payer MEDICARE, SELFPAY ==
[2019-05-17 19:13] LABS: Anion Gap 10.7 mmol/L (3-11); BUN 27 mg/dL (7-18); CO2 27.3 mmol/L (21.0-32.0); Calcium 9.1 mg/dL (8.5-10.1); Chloride 100 mmol/L (98-107); Glucose 107 mg/dL (74-106); Magnesium 1.8 mg/dL (1.8-2.4); Potassium 3.8 mmol/L (3.5-5.1); Sodium 138 mmol/L (136-145)
== END 2019-05-17 19:02 ==
LOC: NCHCN 18:42
PROVIDERS: PCP Nurse Practitioner Family; Visit Provider Nurse Practitioner Family
DX: I10 Essential (primary) hypertension (principal)
CPT/HCPCS: 80048; 83735

== ENCOUNTER 2019-08-17 10:52 | Outpatient (REF) | payer MEDICARE, SELFPAY ==
[2019-08-17 20:10] LABS: HDL Cholesterol 57 mg/dL (40-60); LDL CHOLESTEROL 160 mg/dL (<100)
== END 2019-08-17 11:12 ==
LOC: NCHCN 10:52
PROVIDERS: PCP Nurse Practitioner Family; Visit Provider Nurse Practitioner Family
DX: E78.5 Hyperlipidemia, unspecified (principal)
CPT/HCPCS: 83721; 83718

== ENCOUNTER 2019-08-20 13:21 | Outpatient (REF) | payer MEDICARE, SELFPAY | END 2019-08-20 13:41 | LOC: LBN 13:21 | PROVIDERS: PCP Nurse Practitioner Family; Visit Provider Orthopaedic Surgery | DX: Z22.322 Carrier or suspected carrier of Methicillin resistant Staphylococcus aureus (principal) | CPT/HCPCS: 87081 ==

== ENCOUNTER 2020-01-17 10:01 | Outpatient (REF) | payer MEDICARE, SELFPAY ==
[2020-01-17 19:20] LABS: Anion Gap 10.2 mmol/L (3-11); BUN 26 mg/dL (7-18); CO2 25.8 mmol/L (21.0-32.0); CREATININE 0.84 mg/dL (0.55-1.02); Calcium 8.6 mg/dL (8.5-10.1); Chloride 103 mmol/L (98-107); Glucose 117 mg/dL (74-106); Potassium 3.6 mmol/L (3.5-5.1); Sodium 139 mmol/L (136-145)
== END 2020-01-17 10:21 ==
LOC: NCHCN 10:01
PROVIDERS: PCP Nurse Practitioner Family; Visit Provider Nurse Practitioner Family
DX: I10 Essential (primary) hypertension (principal)
CPT/HCPCS: 80048

== ENCOUNTER → 2020-01-26 10:22 | Outpatient (BNVA) | payer MEDICARE, SELFPAY | PROVIDERS: PCP Nurse Practitioner Family; Referring Provider Nurse Practitioner Family; Visit Provider Surgery | DX: K43.9 Ventral hernia without obstruction or gangrene (principal); I10 Essential (primary) hypertension; Z98.890 Other specified postprocedural states | CPT/HCPCS: 99202; 99213 ==

== ENCOUNTER → 2020-03-20 10:20 | Outpatient (BNVA) | payer MEDICARE, SELFPAY | PROVIDERS: PCP Nurse Practitioner Family; Referring Provider Nurse Practitioner Family; Visit Provider Surgery | DX: K43.9 Ventral hernia without obstruction or gangrene (principal); I34.0 Nonrheumatic mitral (valve) insufficiency; K57.00 Diverticulitis of small intestine with perforation and abscess without bleeding; I10 Essential (primary) hypertension; E78.5 Hyperlipidemia, unspecified | CPT/HCPCS: 99213; 99214 ==

== ENCOUNTER 2020-03-20 17:43 | Outpatient (REF) | payer MEDICARE, SELFPAY ==
[2020-03-20 13:45] LABS: Abs Immature Grans 0.03 10^3/uL (0.0-0.06); Absolute Basophil Count 0.06 10^3/uL (0.0-0.2); Absolute Eosinophil Count 0.15 10^3/uL (0.0-0.7); Absolute Lymphocyte Count 0.86 10^3/uL (1.2-3.4); Absolute Monocyte Count 0.39 10^3/uL (0.1-0.8); Absolute Neutrophil Count 3.22 10^3/uL (1.2-6.7); Basophils % 1.3; Eosinophils % 3.2; HCT 39.3 % (36.0-46.0); HGB 13.2 g/dL (11.2-15.7); Immature Grans % 0.6; Lymphocytes % 18.3; MCHC 33.6 % (32.0-36.0); MCV 95.4 fL (80-95); Monocytes % 8.3; Neutrophils % 68.3; Nucleated RBC 0 %; Platelet Count 196 10^3/uL (130-400); RBC 4.12 10^6/uL (3.93-5.22); RDW 13.1 % (11.7-14.6); RDW-SD 46.2 fL; WBC 4.71 10^3/uL (4.4-10.8)
[2020-03-20 13:57] LABS: Prothrombin Time 9.8 sec (9.3-11.0)
[2020-03-20 14:01] LABS: ALT 32 U/L (14-59); AST 24 U/L (15-37); Albumin 4.3 g/dL (3.4-5.0); Alkaline Phosphatase 122 U/L (46-116); BUN 29 mg/dL (7-18); Bilirubin, Total 0.5 mg/dL (0.2-1.0); CREATININE 0.88 mg/dL (0.55-1.02); Calcium 9.4 mg/dL (8.5-10.1); Chloride 101 mmol/L (98-107); Glucose 95 mg/dL (74-106); Potassium 3.9 mmol/L (3.5-5.1); Sodium 136 mmol/L (136-145); Total Protein 7.8 g/dL (6.4-8.2)
== END 2020-03-20 18:03 ==
LOC: LBN 17:43
PROVIDERS: PCP Nurse Practitioner Family; Visit Provider Surgery
DX: K43.9 Ventral hernia without obstruction or gangrene (principal); Z01.818 Encounter for other preprocedural examination; I34.0 Nonrheumatic mitral (valve) insufficiency; I10 Essential (primary) hypertension; E78.5 Hyperlipidemia, unspecified; K57.00 Diverticulitis of small intestine with perforation and abscess without bleeding; M19.012 Primary osteoarthritis, left shoulder
CPT/HCPCS: 80053; 85025; 85610

== ENCOUNTER 2020-03-23 02:48 | Outpatient (CLI) | payer MEDICARE, SELFPAY ==
[2020-03-23] MEDS: Omnipaque 350 MG/ML 50 ML BTL PO (09:23)
[2020-03-23] MEDS: Breeza Beverage 473 ML BTL PO ×2 (09:23→09:24)
--- NOTE | 2020-03-23 11:21 | DI.CT_ITS ---
EXAM: CT ABDOMEN PELVIS W CLINICAL HISTORY: ventral hernia/preOp planning,K43.9 TECHNIQUE: Imaging Protocol: Axial computed tomography images with coronal and sagittal reformatted images were created and reviewed CONTRAST MATERIAL: Intravenous: Omnipaque 350 Contrast volume:100 mL Oral: Yes COMPARISON: CT CT thorax abd/pel CTA from 07/14/2018 FINDINGS: ABDOMEN: Lung Bases: Normal where visualized. Liver: Normal density. No measurable mass. Portal, Superior Mesenteric, and Splenic Veins: Unremarkable. Gallbladder and Biliary Tract: No radiodense calculus or dilation. Pancreas: Normal density, no abnormal calcifications or inflammatory process. Spleen: Normal. Adrenals: No masses seen. Kidneys: Normal size, contour and axis. No radiodense stones or obstructive uropathy. No masses seen. Abdominal Aorta: Abdominal portion non-dilated. Atherosclerosis. Bowel: No obstruction or bowel wall thickening. Appendix is unremarkable. Diverticulosis of the colon but no evidence of acute diverticulitis. Peritoneal Cavity: No ascites, collection or mesenteric inflammatory response. No free air.There are 2 midline infraumbilical anterior abdominal wall hernia. They lie on top of each other and each 1 c ontains an unremarkable loop of small bowel. No evidence of obstruction or strangulation. There is a small fat containing paraumbilical hernia in the midline. Lymph Nodes: Within normal limits. Bones: There is a marked left convex scoliotic curvature of the lumbar spine. Moderately severe dege nerative changes are seen in the spine. Mild pseudo spondylolisthesis of L4 on L5 is noted. Soft Tissues: Unremarkable. PELVIS: Bladder: Symmetric distention, no gross wall thickening. Reproductive Organs: Unremarkable as visualized. Lymph Nodes: Within normal limits. Bones: Please see the above discussion. IMPRESSION: 1. One small fat containing paraumbilical hernia. 2. Two moderate size midline infraumbilical anterior abdominal wall hernia. They each contain unrema rkable loops of small bowel. No evidence of bowel obstruction or strangulation. RADIATION DOSE DELIVERED: 769.29mGy.cm Total DLP DATA REPOSITORY: All CT scans at this facility are submitted to the National Radiology Data Registry (NRDR) Dose Index Registry (DIR) with the [employer] (ACR). RADIATION OPTIMIZATION: All CT scans at this facility use at least one of these dose optimization te chniques: automated exposure control; mA and/or kV adjustment per patient size (includes targeted exa ms where dose is matched to clinical indication); or iterative reconstruction.
[2020-03-23] MEDS: Omnipaque 350 MG/ML 100 ML BTL IJ (11:25)
[2020-03-23] MEDS: Normal Saline - Diluent 50 ML VIAL IV (11:25)
== END 2020-03-23 03:08 ==
PROVIDERS: PCP Nurse Practitioner Family; Visit Provider Surgery
DX: K42.9 Umbilical hernia without obstruction or gangrene (principal); K43.9 Ventral hernia without obstruction or gangrene
CPT/HCPCS: 74177; J3490; Q9967

== ENCOUNTER 2020-04-11 00:52 | Outpatient (CLI) | payer MEDICARE, SELFPAY ==
--- NOTE | 2020-04-11 | DI.US_ITS ---
EXAM: MG MAMMO DIAGNOSTIC BI and U/S breast LT limited CLINICAL HISTORY: DIAGNOSTIC, 6 MONTH F/U, F/U ABNL MAMMO. TECHNIQUE: Craniocaudal and mediolateral oblique Full Field Digital Mammography views with Computer Aided Diagnosis followed by Tomosynthesis and left breast ultrasound. COMPARISON: Priors available for comparison. FINDINGS: Mammography/Tomosynthesis: Masses/Architectural Distortion: Well-circumscribed nodule is again seen in the upper outer quadrant of the left breast. It appears unchanged compared to the prior examinations. Microcalcifictions: No suspicious pleomorphic-type are seen. Skin Thickening/Nipple Retraction: None. Left breast US: Echotexture: Normal appearance of the glandular tissue. Shadowing: No suspicious foci. Cyst: None. Solid lesions: Hypoechoic 0 point 8 x 0.6 cm well-circumscribed avascular nodule at the 2 o'clock pos ition of the left breast 3 cm from the nipple. It is unchanged compared to the prior examination. Ductal dilation: None. IMPRESSION: 1. No evidence of malignancy is noted. Stable left breast nodule. 2. A six-month follow-up mammogram and ultrasound are requested to document continued stability. 3. The findings were discussed with the patient on the date of the examination. BI-RADS Category 3 - 6 month - Probably Benign Finding: Recommend follow-up mammography in 6 months Breast Density - Category B - Scattered areas of fibroglandular density Breast density Category C or D implies that the patient has dense breast tissue. Dense breast tissue can make it harder to find cancer on a mammogram. Dense breast tissue is also associated with an incr eased risk of breast cancer. This information about the result of the mammogram report was provided to the patient to raise their awareness. Use this report when you speak with the patient about their risks for breast cancer, which includes their family history. At that time, you may recommend additional screening tests (Ultrasoun d or MRI) as these tests may add significant information. A negative radiographic report should not delay biopsy if a dominant or clinically suspicious mass is present. Up to ten percent of cancers are not identified on mammography. A negative report may reinforce clinical impression. Adenosis and dense breasts may obscure an underlying neoplasm. False positive reports average 6 to 10%. Patient will receive a letter notifying them of these results.
== END 2020-04-11 00:53 ==
LOC: DI 00:52
PROVIDERS: PCP Nurse Practitioner Family; Visit Provider Nurse Practitioner Family
DX: N63.21 Unspecified lump in the left breast, upper outer quadrant (principal); Z12.31 Encounter for screening mammogram for malignant neoplasm of breast; R92.8 Other abnormal and inconclusive findings on diagnostic imaging of breast
CPT/HCPCS: 76642; 77062; 77066; G0279

== ENCOUNTER → 2020-04-17 09:53 | Outpatient (BNVA) | payer MEDICARE, SELFPAY | PROVIDERS: PCP Nurse Practitioner Family; Referring Provider Nurse Practitioner Family; Visit Provider Surgery | DX: K45.8 Other specified abdominal hernia without obstruction or gangrene (principal) | CPT/HCPCS: 99213; 99214 ==

== ENCOUNTER → 2020-06-01 09:25 | Outpatient (BNVA) | payer MEDICARE, SELFPAY | PROVIDERS: PCP Nurse Practitioner Family; Referring Provider Nurse Practitioner Family; Visit Provider Surgery | DX: K46.9 Unspecified abdominal hernia without obstruction or gangrene (principal); K43.9 Ventral hernia without obstruction or gangrene | CPT/HCPCS: 99214 ==

== ENCOUNTER 2020-06-03 10:34 | Emergency (ER) | payer MEDICARE, SELFPAY ==
[2020-06-03 10:38] VITALS: BP 182/83; PULSE 116; RESP 16; TEMP 37; O2SAT 98
--- NOTE | 2020-06-03 10:45 | DI.CT_ITS ---
EXAM: CT ABDOMEN PELVIS W INDICATION: RLQ pain, hernia.. COMPARISON: CT CT ABDOMEN PELVIS W from 03/23/2020 TECHNIQUE: FINDINGS: CT examination of the abdomen and pelvis was performed with a bolus infusion of 100 cc of Omnipaque 3 50. Images obtained through the lung bases are unremarkable. The liver is of decreased attenuation consistent with mild hepatic steatosis. No focal lesion identi fied. Gallbladder and bile ducts are CT normal. Pancreas appears normal. Spleen is unremarkable in appearance. Adrenals appear normal. The kidneys are unremarkable with no evidence of hydronephrosis, nephrolithiasis, or renal mass.. Ur inary bladder unremarkable. Abdominal aorta is of normal diameter and no major vascular abnormality is seen. There is a infra umbilical ventral hernia containing loops of unobstructed bowel. No other significa nt abdominal wall hernia seen. No abdominal or pelvic adenopathy. GEOGRAPHIC INFORMATION SCIENTIST structures appear intact. Appendix is normal. No evidence of diverticulitis or bowel obstruction. IMPRESSION: No evidence of acute intra-abdominal process. RADIATION DOSE DELIVERED: 798.02mGy.cm Total DLP 798.02mGy.cm Total DLP RADIATION OPTIMIZATION: All CT scans at this facility use at least one of these dose optimization te chniques: automated exposure control; mA and/or kV adjustment per patient size (includes targeted exa ms where dose is matched to clinical indication); or iterative reconstruction.
--- NOTE | 2020-06-03 10:49 | W.ED.GENAD ---
Discharge Plan Disposition Patient Disposition: HOME Condition: Improving Discharge Details Clinical Impression: Ventral hernia Primary Care Provider: Dotty Estrella ED Provider: Pradeep Alamo Home Meds and New Rx's Prescriptions: Continued Benefiber Clear SF (dextrin) 3 gram/3.5 gram powder in packet 1.5 g PO BID RF: 0 amlodipine 5 mg tablet 5 mg PO DAILY RF: 0 hydrochlorothiazide 25 mg tablet 25 mg PO DAILY RF: 0 multivitamin [Multi-Day] 1 EACH tablet 1 ea PO DAILY RF: 0 meloxicam 15 MG tablet 15 mg PO DAILY RF: 0 ascorbic acid (vitamin C) [Vitamin C] 500 MG tablet 500 mg PO DAILY RF: 0 zolpidem [Ambien] 5 MG tablet 10 mg PO HS RF: 0 triamcinolone acetonide 15 GM cream 15 gm Topical PRN PRNRF: 0 tumeric capsule 1 cap PO DAILY RF: 0 famotidine 20 mg tablet 20 mg PO DAILY RF: 0 omeprazole 20 mg capsule,delayed release(DR/EC) 20 mg PO DAILY RF: 0 Discharge Instructions Additional Instructions: May try docusate 100 mg at bedtime if needed for constipation. Please follow-up with Dr. Maria in clinic as planned. Home to rest today. Continue routine medications. Return to the ER for any acute concerns. Medical Decision Making 79-year-old female presents from home with onset this morning after eating breakfast of right lower quadrant abdominal pain, distention. She has known ventral hernias for which she has planned repair scheduled with Dr. Maria. Today, no fever or vomiting. I am concerned for incarcerated hernia as it was difficult to reduce on exam. Patient IV access established, screening laboratories include lactic acid obtained. Labs no white count 4, hematocrit 39, platelets 179. Lactic acid 1.1, chemistries reassuring with BUN 31, creatinine 1.0. CT images: Reveal a broad right ventral abdominal wall hernia with nonobstructed bowel. Diverticulosis present, no diverticulitis.\ Patient improved. Requested some help with intermittent constipation at home will trial docusate. She will follow up with Dr. Longoria as planned for operative repair of known ventral hernia. Lab Data Lab results reviewed: Yes I reviewed the patient's lab results. Labs: Laboratory Results - last 24 hr 06/03/20 06/03/20 06/03/20 10:52 10:52 10:52 WBC 4.69 RBC 4.19 Hgb 13.3 Hct 39.4 MCV 94.0 MCH 31.7 MCHC 33.8 RDW 13.0 Plt Count 179 MPV 9.3 Immature Gran % 0.9 Neutrophils % 61.6 Lymphocytes % 22.6 Monocytes % 10.0 Eosinophils % 3.8 Basophils % 1.1 Nucleated RBC % 0 Absolute Neutrophils 2.89 Absolute Lymphocytes 1.06 L Absolute Monocytes 0.47 Absolute Eosinophils 0.18 Absolute Basophils 0.05 VBG Lactate 1.1 Sodium 136 Potassium 3.7 Chloride 99 Carbon Dioxide 25.8 Anion Gap 11.2 H BUN 31 H Creatinine 1.0 Estimated GFR/1.73 m2 53.76 Glucose 117 H Calcium 9.6 Magnesium 1.7 L Total Bilirubin 0.8 AST 23 ALT 36 Alkaline Phosphatase 118 H Total Protein 7.8 Albumin 4.2 Lipase 169 Urine Color Urine Clarity Urine pH Ur Specific [place] Urine Protein Urine Ketones Urine Blood Urine Nitrite Urine Bilirubin Urine Urobilinogen Ur Leukocyte Esterase Urine Glucose 06/03/20 11:05 WBC RBC Hgb Hct MCV MCH MCHC RDW Plt Count MPV Immature Gran % Neutrophils % Lymphocytes % Monocytes % Eosinophils % Basophils % Nucleated RBC % Absolute Neutrophils Absolute Lymphocytes Absolute Monocytes Absolute Eosinophils Absolute Basophils VBG Lactate Sodium Potassium Chloride Carbon Dioxide Anion Gap BUN Creatinine Estimated GFR/1.73 m2 Glucose Calcium Magnesium Total Bilirubin AST ALT Alkaline Phosphatase Total Protein Albumin Lipase Urine Color Yellow Urine Clarity Clear Urine pH 6.0 Ur Specific [place] 1.025 Urine Protein Negative Urine Ketones Negative Urine Blood Negative Urine Nitrite Negative Urine Bilirubin Negative Urine Urobilinogen 0.2 Ur Leukocyte Esterase Negative Urine Glucose Negative HPI General Mode of arrival: ambulatory. Date/Time Provider Initiated Documentation: 06/03/20 10:35. Limitations to Documentation: no limitations. Information obtained by: patient. History of Present Illness 79 year old F presents to the emergency department with the chief complaint of Right lower quadrant abdominal pain, known abdominal ventral hernia, Quality is described as dull and constant, and is localized to the abdomen and right. Patient reports no radiation. Patient started experiencing this hour(s) and it has been constant. No relieving factors improve symptom(s), No exacerbating factors reported . Patient notes denies fever/chills, loss of appetite and nausea/vomiting. Patient did receive the following treatments prior to arrival, none Related Data Home Medications Medication Instructions Recorded Confirmed ascorbic acid (vitamin C) [Vitamin 500 mg PO DAILY 06/01/14 06/03/20 C] meloxicam 15 mg PO DAILY tab-cap 06/01/14 06/03/20 multivitamin [Multi-Day] 1 ea PO DAILY 06/01/14 06/03/20 zolpidem [Ambien] 10 mg PO HS 06/01/14 06/03/20 triamcinolone acetonide 15 gm TOPICAL PRN PRN script NS 09/02/17 06/03/20 famotidine 20 mg tablet 20 mg PO DAILY 01/21/20 03/20/20 tumeric 1 cap PO DAILY 01/21/20 06/03/20 amlodipine 5 mg tablet 5 mg PO DAILY 03/20/20 06/03/20 wheat dextrin 3 gram/3.5 gram oral 1.5 g PO BID 03/20/20 06/03/20 powder packet hydrochlorothiazide 25 mg tablet 25 mg PO DAILY 04/17/20 06/03/20 omeprazole 20 mg PO DAILY 06/03/20 06/03/20 Allergies Allergy/AdvReac Type Severity Reaction Status Date / Time losartan Allergy Severe Verified 06/01/20 09:27 amitriptyline [From Elavil] Allergy Mild Verified 06/03/20 10:41 lisinopril AdvReac Intermediate cough Verified 06/03/20 10:41 codeine phosphate AdvReac nausea/vomi Verified 06/03/20 10:41 [From Tylenol-Codeine] ting metronidazole [From Flagyl] AdvReac nausea Verified 06/03/20 10:41 sulfamethoxazole AdvReac nausea/vomi Verified 06/03/20 10:41 [From Bactrim] ting/diarrh ea trimethoprim [From Bactrim] AdvReac nausea/vomi Verified 06/03/20 10:41 ting/diarrh ea tdap AdvReac complete Uncoded 06/03/20 10:41 body ache General Stated Complaint: Abd Prob PO: 3 Review of Systems Narrative: Small bowel movement this morning. Ate breakfast at 630. No vomiting, no fever, no recent illness. 8 systems reviewed and otherwise negative [facility] Medical History Abnormal CT of spine Arthritis of left shoulder region Degenerative joint disease Depression Diverticulitis of jejunum Diverticulosis GERD (gastroesophageal reflux disease) Hernia Hyperlipemia Hypertension Insomnia Mitral valve insufficiency Perforation of small intestine due to diverticulitis Surgical History (Updated 08/27/18 @ 07:13 by Janeen Vázquez RN) bunionectomy gangilion cyst History of resection of small bowel (07/14/18) Dr Elvi Maria, [facility], secondary to diverticulitis with perforation. Ligation of fallopian tube removal of ovary Replacement of total knee joint 2002, 2004 Family History Mother Personal history of malignant neoplasm lung Father Personal history of malignant neoplasm stomach Social History Smoking/Tobacco Use Status: Never Smoking risk assessment performed?: Yes Alcohol Intake: current Alcohol Intake frequency: 0-2 drinks per day Drug use: Never Substance use type: does not use Current gender identity: female Do you feel safe at home: Yes Do you feel safe in your relationship?: Yes Exam Narrative Exam Narrative: GEN: awake, alert, oriented 3. Pleasant, well groomed, interactive. HEAD: Normocephalic, atraumatic ENT: Mucous membranes moist, oropharynx unremarkable, External ear exam unremarkable EYES: PERRL, EOMI NECK: Full ROM, no RADHA, no menigismus CHEST/RESP: Nontender, clear to auscultation bilateral, no wheeze/rhonchi/rales CARDIOVASCULAR: RRR, no murmur, rub floresita. 2+ Rad pulse bilateral ABDOMEN: Soft, distended in the lower abdomen, hernia palpable but difficult to reduce, decreased bowel sounds EXT: Full ROM, no edema, no rash Neuro: Grossly normal neurologic exam, conversant, interactive. Psych: Speech fluent, thoughts congruent, affect normal Course Vital Signs Vital signs: Vital Signs Temperature 37.0 C 06/03/20 10:38 Pulse 116 H 06/03/20 10:38 Respiratory Rate 16 06/03/20 10:38 Blood Pressure 182/83 H 06/03/20 10:38 Pulse Oximetry 98 06/03/20 10:38 Temperature 37.0 C 06/03/20 10:38 Temperature Source Skin 06/03/20 10:38 Pulse 116 H 06/03/20 10:38 Respiratory Rate 16 06/03/20 10:38 Blood Pressure 182/83 H 06/03/20 10:38 Blood Pressure Position Sitting 06/03/20 10:38 Pulse Oximetry 98 06/03/20 10:38 Oxygen Delivery Method Room Air 06/03/20 10:38 Oxygen Flow Rate 0 06/03/20 10:38 Pain Level 3 06/03/20 10:38
[2020-06-03 10:57] LABS: Lactate 1.1 mmol/L (0.6-1.4)
[2020-06-03] MEDS: Normal Saline 1,000 ML 125 ML IV (10:59)
[2020-06-03 11:00] LABS: Abs Immature Grans 0.04 10^3/uL (0.0-0.06); Absolute Basophil Count 0.05 10^3/uL (0.0-0.2); Absolute Eosinophil Count 0.18 10^3/uL (0.0-0.7); Absolute Lymphocyte Count 1.06 10^3/uL (1.2-3.4); Absolute Monocyte Count 0.47 10^3/uL (0.1-0.8); Absolute Neutrophil Count 2.89 10^3/uL (1.2-6.7); Basophils % 1.1; Eosinophils % 3.8; HCT 39.4 % (36.0-46.0); HGB 13.3 g/dL (11.2-15.7); Immature Grans % 0.9; Lymphocytes % 22.6; MCH 31.7 pg (27.0-33.0); MCHC 33.8 % (32.0-36.0); MPV 9.3 fL (8.0-11.0); Neutrophils % 61.6; Nucleated RBC 0 %; Platelet Count 179 10^3/uL (130-400); RBC 4.19 10^6/uL (3.93-5.22); RDW-SD 44.6 fL; WBC 4.69 10^3/uL (4.4-10.8)
[2020-06-03 11:12] LABS: ALT 36 U/L (14-59); AST 23 U/L (15-37); Albumin 4.2 g/dL (3.4-5.0); Alkaline Phosphatase 118 U/L (46-116); Anion Gap 11.2 mmol/L (3-11); BUN 31 mg/dL (7-18); Bilirubin, Total 0.8 mg/dL (0.2-1.0); CO2 25.8 mmol/L (21.0-32.0); Calcium 9.6 mg/dL (8.5-10.1); Chloride 99 mmol/L (98-107); Estimated GFR 53.76 (mL/min/1.73m2); Glucose 117 mg/dL (74-106); Lipase 169 U/L (73-393); Magnesium 1.7 mg/dL (1.8-2.4); Potassium 3.7 mmol/L (3.5-5.1); Sodium 136 mmol/L (136-145); Total Protein 7.8 g/dL (6.4-8.2)
[2020-06-03 11:20] LABS: Bilirubin Negative (Negative); Blood Negative (Negative); Clarity Clear (Clear); Glucose Negative (Negative); Ketones Negative (Negative); Leukocyte Esterase Negative (Negative); Nitrite Negative (Negative); Specific Gravity 1.025 (1.005-1.025); Urobilinogen 0.2 EU/dL (Up TO 0.2)
[2020-06-03] MEDS: Omnipaque 350 MG/ML 100 ML BTL IJ (12:29)
[2020-06-03] MEDS: Omnipaque 350 MG/ML 50 ML BTL PO (12:30)
--- NOTE | 2020-06-03 12:42 | DI.VRAD_ITS ---
PROCEDURE INFORMATION: Exam: CT Abdomen And Pelvis With Contrast Exam date and time: 06/03/2020 10:49 AM Age: 79 years old Clinical indication: Abdominal pain; Generalized TECHNIQUE: Imaging protocol: Computed tomography of the abdomen and pelvis with contrast. Radiation optimization: All CT scans at this facility use at least one of these dose optimization techniques: automated exposure control; mA and/or kV adjustment per patient size (includes targeted exams where dose is matched to clinical indication); or iterative reconstruction. Contrast material: OMNIPAQUE 350; Contrast volume: 100 ml; Contrast route: INTRAVENOUS (IV); COMPARISON: CT ABDOMEN PELVIS W 03/23/2020 11:11 AM FINDINGS: Mediastinal space: Small esophageal hiatal hernia. Liver: Fatty infiltration of the liver. Gallbladder and bile ducts: Normal. No calcified stones. No ductal dilation. Pancreas: Coarse pancreatic calcifications, consistent with old chronic pancreatitis. Spleen: Normal. No splenomegaly. Adrenal glands: Normal. No mass. Kidneys and ureters: Normal. No hydronephrosis. Stomach and bowel: Bulky diverticulosis of the entire colon, especially of the sigmoid colon. No evidence of diverticulitis. Appendix: No evidence of appendicitis. Intraperitoneal space: Unremarkable. No free air. No significant fluid collection. Vasculature: Marked diffuse vascular calcifications. No aneurysm identified.. Lymph nodes: Unremarkable. No enlarged lymph nodes. Urinary bladder: Unremarkable as visualized. Reproductive: Unremarkable as visualized. Bones/joints: Degenerative arthritis in the spine and pelvis. Lumbar scoliosis convex to the left. Soft tissues: Broad stable ventral right midline abdominal wall hernia containing loops of nonobstructed bowel. IMPRESSION: 1. Bulky diverticulosis without evidence of diverticulitis. 2. Broad right ventral abdominal wall hernia containing a segment of nonobstructed bowel. Dictated and Authenticated by: Crystal Alvarez MD. Ordering:KYMBERLY Fernández MD
[2020-06-03] MEDS: Docusate Sodium 100 MG CAP 200 MG PO (13:25)
[2020-06-03 13:30] VITALS: BP 180/84; PULSE 105; RESP 16; TEMP 36.8; O2SAT 98
== END 2020-06-03 13:36 | disposition home or self-care (01) ==
PROVIDERS: Emergency Provider Emergency Medicine; PCP Nurse Practitioner Family
DX: K43.9 Ventral hernia without obstruction or gangrene (principal); K59.00 Constipation, unspecified
CPT/HCPCS: 80053; 83690; 96360; 96361; 99285; 74177; 81003; 83605; 83735; 85025; 99283; J3490; Q9967

== ENCOUNTER 2020-07-05 10:00 | Outpatient (REF) | payer MEDICARE, SELFPAY ==
[2020-07-05 15:50] LABS: Anion Gap 10.9 mmol/L (3-11); BUN 26 mg/dL (7-18); CO2 27.1 mmol/L (21.0-32.0); Calcium 9.5 mg/dL (8.5-10.1); Chloride 99 mmol/L (98-107); Estimated GFR 53.76 (mL/min/1.73m2); Glucose 114 mg/dL (74-106); Potassium 3.8 mmol/L (3.5-5.1); Sodium 137 mmol/L (136-145)
== END 2020-07-05 10:01 | disposition home or self-care (01) ==
LOC: NCHCN 10:00
PROVIDERS: PCP Nurse Practitioner Family; Visit Provider Nurse Practitioner Family
DX: E78.5 Hyperlipidemia, unspecified (principal)
CPT/HCPCS: 80048

== ENCOUNTER 2020-07-10 02:59 | Outpatient (CLI) | payer MEDICARE, SELFPAY ==
[2020-07-10 10:23] LABS: Source Nasal/Nares
[2020-07-10 12:28] LABS: COVID-19 PCR Negative (Negative)
== END 2020-07-10 03:00 | disposition home or self-care (01) ==
LOC: LBO 03:00
PROVIDERS: PCP Nurse Practitioner Family; Visit Provider Surgery
DX: Z20.822 Contact with and (suspected) exposure to COVID-19 (principal); Z01.818 Encounter for other preprocedural examination
CPT/HCPCS: 87635

== ENCOUNTER 2020-07-11 07:23 | Inpatient (IN) | payer MEDICARE, SELFPAY ==
--- NOTE | 2020-07-07 13:45 | NUR.NOTE ---
07/07: This RN checked in with patient regarding BP. Pt. states she went to her PCP's office and they gave her an automated BP cuff. Stated she took her BP this morning and it was 152/78 at 0930, she took it while on the phone at 1350 and was 174/99, pt. states she is still figuring out how to use automated cuff properly. Also stated her daughter who is a Nurse at [facility] will be coming up this evening to take her BP for her and this weekend as well. Pt. instructed if BP stays elevated 180's and above to contact doctor. Pt. also instructed to check back in with pre-op Friday morning for weekend BP readings. Anesthesia and Dr. Maria informed of BP readings so far. Nursing Note:
--- NOTE | 2020-07-10 08:09 | NUR.NOTE ---
BP Follow-up: This RN followed up with pt. regarding her elevated BP readings. Pt. was instructed to keep a daily log for this weekend of blood pressures taken in the morning and in the evening. Readings were: 07/07: 152/78, 161/90 07/08:149/91, 165/82 07/09/:161/81, 163/[address] Maria and Mallory DAVIS, from anesthesia of these readings. Nursing Note:
--- NOTE | 2020-07-10 15:29 | W.PM.HP.N ---
Date of service: 07/11/20 Time of Service: 08:30 Assessment and Plan Assessment and plan (1) Degenerative joint disease: Status: Acute (2) GERD (gastroesophageal reflux disease): Status: Acute (3) Hyperlipidemia: Status: Acute (4) Hypertension: Status: Acute (5) Insomnia: Status: Acute (6) Mitral insufficiency: Status: Acute (7) Ventral hernia: Status: Acute (8) Abnormal CT of spine: Status: Acute Assessment and plan: She has severe degenerative joint disease and osteopenia. And looked in both [facility] and in [facility] charts. I do not see any history of benign bone tumors from this. History of Present Illness Consults Consult date: 07/11/20 Narrative: May 2020 clinic visit: I did discuss her case with anesthesia and she does feel she is acceptable for anesthesia at our facility. I did discuss the case with anesthesia. Anesthesia did review their notes and the last time she had her laparotomy they were unable to place an epidural catheter because of her spine. So it is questionable whether we can use an epidural. We had a very long and soraya discussion about surgery. What she could expect during the procedure post procedurally recovery time and risks. She will probably be in the hospital for 5 days afterwards she will have a 6 to 12-week recovery time in which she can do no heavy lifting. Patient states she does not do any heavy lifting anyway. Risks include bleeding, infection, pneumonia, blood clots, chronic numbness or chronic pain. Most likely her anterior abdominal wall will be numb. There may be some irregularity to the contour of the abdominal wall. This procedure is for hernia not for cosmesis. She expresses understanding of this. She is at risk for heart attack and stroke. Because of age. She is to risk for other complications from anesthesia because of age. She had 3 to 4-hour shoulder reconstruction last August and did well following the surgery with anesthetic. She has made a full recovery and does and feels she is back to her activities of daily living and better so than prior to the surgery. We discussed because of her age there is always a concern that she is not able to recover her ADLs and is worse off for having had surgery. [facility] SPINE 09/29/2015 Seven views were obtained. There is a mid cervical kyphosis. There is marked disc space narrowing at C4-5, C5-6 and C6-7 and there is mild anterolisthesis of C4 on C5. Very prominent hypertrophic changes are seen involving the vertebral end plates particularly at C4-5 and C5-6 and there are prominent hypertrophic degenerative changes of the facet joints throughout the mid-cervical region as well. Neural foramina appear well maintained on oblique views. No other significant bony abnormality is seen. CONCLUSION: Severe degenerative changes as described above. -This is the only x-ray or CT or MRI we have of her bones. She also has a history of severe osteopenia -Patient was in the ER on 4 with abdominal pain, distention, bloating. She had been having problems with constipation at that point. She did have a CT which did show no acute obstruction. Today she is feeling good. She denies any chest pain or shortness of breath. She denies any productive cough. She denies any fever or chills. All questions are answered and she is stable for procedure today [facility] Medical History Abnormal CT of spine Arthritis of left shoulder region Degenerative joint disease Depression Diverticulitis of jejunum Diverticulosis GERD (gastroesophageal reflux disease) Hernia Hyperlipemia Hypertension Insomnia Mitral valve insufficiency Perforation of small intestine due to diverticulitis Surgical History bunionectomy gangilion cyst History of resection of small bowel (07/14/18) Dr Elvi Maria, [facility], secondary to diverticulitis with perforation. Hx of shoulder replacement L Ligation of fallopian tube removal of ovary Replacement of total knee joint 2002, 2004 Family History Mother Personal history of malignant neoplasm lung Father Personal history of malignant neoplasm stomach Social History Smoking/Tobacco Use Status: Never Smoking risk assessment performed?: Yes Alcohol Intake: current Alcohol Intake frequency: a few times a month Drug use: Never Substance use type: does not use Current gender identity: female Do you feel safe at home: Yes Additional Social history: live alone Meds Allergies and Home Medications Allergies Allergy/AdvReac Type Severity Reaction Status Date / Time losartan Allergy Severe Verified 07/11/20 07:43 amitriptyline [From Elavil] Allergy Mild Verified 07/11/20 07:43 lisinopril AdvReac Intermediate cough Verified 07/11/20 07:43 codeine phosphate AdvReac nausea/vomi Verified 07/11/20 07:43 [From Tylenol-Codeine] ting metronidazole [From Flagyl] AdvReac nausea Verified 07/11/20 07:43 sulfamethoxazole AdvReac nausea/vomi Verified 07/11/20 07:43 [From Bactrim] ting/diarrh ea trimethoprim [From Bactrim] AdvReac nausea/vomi Verified 07/11/20 07:43 ting/diarrh ea tdap AdvReac complete Uncoded 07/11/20 07:43 body ache Home Medications Medication Instructions Recorded Confirmed Type ascorbic acid (vitamin C) [Vitamin 500 mg PO DAILY 06/01/14 07/11/20 History C] meloxicam 15 mg PO DAILY tab-cap 06/01/14 07/11/20 History multivitamin [Multi-Day] 1 ea PO DAILY 06/01/14 07/11/20 History zolpidem [Ambien] 10 mg PO HS 06/01/14 07/11/20 History triamcinolone acetonide 15 gm TOPICAL PRN PRN script NS 09/02/17 07/11/20 History tumeric 1 cap PO DAILY 01/21/20 07/11/20 History amlodipine 5 mg tablet 5 mg PO DAILY 03/20/20 07/11/20 History wheat dextrin 3 gram/3.5 gram oral 1.5 g PO BID 03/20/20 07/11/20 History powder packet hydrochlorothiazide 25 mg tablet 50 mg PO DAILY 04/17/20 07/11/20 History omeprazole 20 mg PO DAILY 06/03/20 07/11/20 History Exam Resp Effort & Inspection: normal respiratory effort and able to speak in complete sentences Auscultation: clear to auscultation bilaterally Cardio Rate: regular rate Rhythm: regular rhythm GI Other: Hernias are unchanged in size. There is soft and reducible. Extrem Other: Extremities show some mild changes consistent with osteoarthritis. She has some mild varicosities. No clubbing cyanosis or edema. She does walk with a cane. COVID-19 Screening Have you, or household traveled for leisure in last 14 days?: No Had IN PERSON contact w/suspected or confirmed C-19 person: No
--- NOTE | 2020-07-10 19:30 | W.ANESPRE ---
General Info Date of Service Date Performed: 07/11/20 Height: 5 ft 1 in Weight: 73.549 kg Body Mass Index (BMI): 30.6 Surgical Procedure: Operation Date: 07/11/20 09:10 Proposed Procedures Side Surgeon p complex anterior abdominal wall hernia Elvi Maria, DO Meds Allergies and Home Medications Allergies Allergy/AdvReac Type Severity Reaction Status Date / Time losartan Allergy Severe Verified 07/11/20 07:43 amitriptyline [From Elavil] Allergy Mild Verified 07/11/20 07:43 lisinopril AdvReac Intermediate cough Verified 07/11/20 07:43 codeine phosphate AdvReac nausea/vomi Verified 07/11/20 07:43 [From Tylenol-Codeine] ting metronidazole [From Flagyl] AdvReac nausea Verified 07/11/20 07:43 sulfamethoxazole AdvReac nausea/vomi Verified 07/11/20 07:43 [From Bactrim] ting/diarrh ea trimethoprim [From Bactrim] AdvReac nausea/vomi Verified 07/11/20 07:43 ting/diarrh ea tdap AdvReac complete Uncoded 07/11/20 07:43 body ache Home Medication Medication Instructions Recorded ascorbic acid (vitamin C) [Vitamin 500 mg PO DAILY 06/01/14 C] meloxicam 15 mg PO DAILY tab-cap 06/01/14 multivitamin [Multi-Day] 1 ea PO DAILY 06/01/14 zolpidem [Ambien] 10 mg PO HS 06/01/14 triamcinolone acetonide 15 gm TOPICAL PRN PRN script NS 09/02/17 tumeric 1 cap PO DAILY 01/21/20 amlodipine 5 mg tablet 5 mg PO DAILY 03/20/20 wheat dextrin 3 gram/3.5 gram oral 1.5 g PO BID 03/20/20 powder packet hydrochlorothiazide 25 mg tablet 50 mg PO DAILY 04/17/20 omeprazole 20 mg PO DAILY 06/03/20 Current Visit Medications: Current Medications Generic Name Dose Route Start Last Admin Trade Name Freq PRN Reason Stop Dose Admin Acetaminophen 1,000 mg 07/11/20 06:00 Acetaminophen 500 Mg Tab PO 08/09/20 23:59 PREOP BESS Gabapentin 300 mg 07/11/20 06:00 Gabapentin 300 Mg Cap PO 08/09/20 23:59 PREOP BESS Ringer's Solution 1,000 mls @ 80 mls/hr 07/11/20 06:00 IV 08/09/20 23:59 INFUSION BESS Cefazolin Sodium/Dextrose 2 gm in 50 mls @ 100 mls/hr 07/11/20 06:00 Ancef Duplex IVPB 08/09/20 23:59 PREOP BESS IV Miscellaneous Supplies 1 each 07/11/20 06:00 Iv Access IV 08/09/20 23:59 DIRECTED BESS Sodium Chloride 0 ml 07/11/20 06:00 Normal Saline Flush 10 Ml Syr IV 08/09/20 23:59 PRN PRN Sodium Chloride 0 ml 07/11/20 06:00 Normal Saline 10 Ml Vial IJ 08/09/20 23:59 DIRECTED PRN Sterile Water 0 ml 07/11/20 06:00 Water,Injection,Sterile 10 Ml Vial IJ 08/09/20 23:59 DIRECTED PRN PFSH Active Problems Active Problems: Problem Status Onset Code Atrophic vaginitis 07/19/14 N95.2 Degenerative joint disease 06/01/14 M19.90 Depression 06/01/14 F32.9 Diverticulosis 06/01/14 K57.90 GERD (gastroesophageal reflux disease) 06/01/14 K21.9 Hyperlipidemia 06/01/14 E78.5 Hypertension 06/01/14 I10 Insomnia 06/01/14 G47.00 Mitral insufficiency 06/01/14 I34.0 Neuralgia 09/02/17 M79.2 Tinea corporis 09/02/17 B35.4 Internal hemorrhoids K64.8 Ventral hernia K43.9 Preop testing Z01.818 Ventral hernia K43.[address] of spine R93.7 Perforation of small intestine due to diverticulitis K57.00 Diverticulitis of jejunum K57.12 Medical History Medical History Abnormal CT of spine Arthritis of left shoulder region Degenerative joint disease Depression Diverticulitis of jejunum Diverticulosis GERD (gastroesophageal reflux disease) Hernia Hyperlipemia Hypertension Insomnia Mitral valve insufficiency Perforation of small intestine due to diverticulitis Surgical History Surgical History bunionectomy gangilion cyst History of resection of small bowel (07/14/18) Dr Elvi Maria, [facility], secondary to diverticulitis with perforation. Hx of shoulder replacement L Ligation of fallopian tube removal of ovary Replacement of total knee joint 2002, 2004 Tobacco Smoking/Tobacco Use Status: Never Alcohol Alcohol Intake: current Alcohol intake frequency: a few times a month Substance Use Substance use: Never Substance use type: does not use Vital Signs and Lab Results Vital Signs Most Recent Vital Signs in EMR: Temp Pulse Resp BP Pulse Ox 36.1 C L 79 18 148/82 H 97 07/11/20 07:53 07/11/20 07:53 07/11/20 07:53 07/11/20 07:53 07/11/20 07:53 Lab Results Blood Type / Crossmatch: No Data to Display Complete Blood Count: White Blood Count 4.69 10^3/uL (4.4-10.8) 06/03/20 10:52 06/03/20 Red Blood Count 4.19 10^6/uL (3.93-5.22) 06/03/20 10:52 06/03/20 Hemoglobin 13.3 g/dL (11.2-15.7) 06/03/20 10:52 06/03/20 Hematocrit 39.4 % (36.0-46.0) 06/03/20 10:52 06/03/20 Platelet Count 179 10^3/uL (130-400) 06/03/20 10:52 06/03/20 Complete Metabolic Panel: Sodium Level 137 mmol/L (136-145) 07/05/20 09:40 07/05/20 Potassium Level 3.8 mmol/L (3.5-5.1) 07/05/20 09:40 07/05/20 Chloride Level 99 mmol/L (98-107) 07/05/20 09:40 07/05/20 Carbon Dioxide Level 27.1 mmol/L (21.0-32.0) 07/05/20 09:40 07/05/20 Blood Urea Nitrogen 26 mg/dL (7-18) H 07/05/20 09:40 07/05/20 Creatinine 1.0 mg/dL (0.55-1.02) 07/05/20 09:40 07/05/20 Magnesium Level 1.7 mg/dL (1.8-2.4) L 06/03/20 10:52 06/03/20 Calcium Level 9.5 mg/dL (8.5-10.1) 07/05/20 09:40 07/05/20 Albumin 4.2 g/dL (3.4-5.0) 06/03/20 10:52 06/03/20 Glucose Level 114 mg/dL (74-106) H 07/05/20 09:40 07/05/20 C-Reactive Protein 0.39 mg/dL (0.0-0.3) H 03/25/16 16:10 03/25/16 Liver Function Panel: Alanine Aminotransferase (ALT/SGPT) 36 U/L (14-59) 06/03/20 10:52 06/03/20 Aspartate Amino Transf (AST/SGOT) 23 U/L (15-37) 06/03/20 10:52 06/03/20 Coagulation Panel: INR International Normalized Ratio 1.0 (0.9-1.1) 03/20/20 11:45 03/20/20 Prothrombin Time 9.8 sec (9.3-11.0) 03/20/20 11:45 03/20/20 Cardiac Panel: Troponin I < 0.02 ng/mL (0.00-0.06) 07/14/18 17:15 07/14/18 Arterial Blood Gas: No Data to Display Venous Blood Gas: Venous Blood Lactate 1.1 mmol/L (0.6-1.4) 06/03/20 10:52 06/03/20 Pancreas Panel: Amylase Level 37 U/L (25-115) 07/17/18 06:45 07/17/18 Lipase 169 U/L (73-393) 06/03/20 10:52 06/03/20 Thyroid Panel: Thyroid Stimulating Hormone (TSH) 2.23 uIU/mL (0.358-3.74) 08/04/18 09:10 08/04/18 Infectious Disease: Coronavirus (COVID-19)(PCR) Negative (Negative) 07/10/20 08:59 07/10/20 Coronavirus 2019 Source Nasal/nares 07/10/20 08:59 07/10/20 Blood Cultures: No Data to Display Toxicology Panel: No Data to Display Imaging and Studies Imaging and Studies Echocardiogram Summary:: 05/2019: LVEF 67%, mild MR. Anesthesia Assessment and Plan Anesthesia History Personal History: No History of Anesthesia Complications Family History: No Family History of Anesthesia Complications Exercise Tolerance Exercise Tolerance: Metabolic Equivalents>4 Cardiac & Pulmonary Exam Cardiac Exam: Normal S1/S2 Heart Sounds Pulmonary Exam: Clear Bilateral Breath Sounds Airway Exam Known Difficult Airway: No Mallampati Class: 3 Mouth Opening: Normal (> 3cm) Thyromental Distance: Greater than 3 cm Neck Range of Motion: Full ROM Neck Circumference: Normal Teeth Condition: Edentulous ASA Classification ASA Score: ASA 3 Emergency Case?: No NPO Status NPO Status: NPO Clears >2 hours, Solids >8 hours Anesthesia Plan Anesthesia Technique: General Anesthesia Airway Planned: Endotracheal Tube Monitors Used: Standard Monitors Preoperative Comments:: 79 yo here for ibrahima-stoppa repair of a large ventral hernia that has been causing pain. Significant PMhx of HTN (on amlodipine and hydrochlorothiazide, but BPs more recently documented 150-180/70-80), GERD (well controlled with prilosec), and scoliosis. Previous [place] 3 grade 1. Multiple attempts for epidural previously without success, CT scan shows significant curvature/rotation. Discussed risks, benefits, and alternatives to GAETT/epidural/TAP blocks. Plan for Preop epidural attempts after US marking of back, GAETT, and 2nd IV/midline, +/- arterial line.
[2020-07-11] VITALS (23 sets, daily range): BP systolic 78–148; BP diastolic 37–82; PULSE 57–79; RESP 15–24; TEMP 35.3–36.4; O2SAT 91–98; BMI 30.6
[2020-07-11] MEDS: Gabapentin 300 MG CAP PO (08:00)
[2020-07-11] MEDS: Acetaminophen 500 MG TAB 1000 MG PO ×2 (08:00→20:39)
[2020-07-11] MEDS: Lactated Ringers 1,000 ML 80 ML IV ×2 (08:30→13:33)
[2020-07-11] MEDS: ceFAZolin 2 GM/50 ML BAG IVPB (09:16)
--- NOTE | 2020-07-11 09:43 | W.ANESNEU ---
Epidural/Spinal Catheter Date Performed: 07/11/20 Procedure Time: 08:46 Requesting Provider: Elvi Maria Procedure Location: PACU Reason Performed: Postoperative Analgesia Standard Monitors Applied: ECG, Blood Pressure and SpO2 Patient Position: Sitting Sedation Given (Indicate Dose Given): Versed IV (2 mg, in 0.5 mg aloquats every 3-7 minutes. ) Patient Mental Status: Awake Sterility: Hand Hygiene, Surgical Cap, Surgical Mask, Sterile Gloves, Sterile Drape/Sheet and Chlorhexidine Procedure Location: T12-L1 Interspace Epidural Needle: Tuohy 17 Guage Needle Length: 3.5 Inch Needle Approach: Midline Epidural Procedure: Skin Prepped, Sterile Drape Placed, 1% Lidocaine to skin and subcutaneous tissue with 25G needle, VIVIANA to Saline Used, Negative Heme, Negative CSF Flow and Tuohy Needle Removed Catheter Placed?: Catheter Placed (wire reinforced. ) Test Dose (Indicate Dose Given): 3ml 1.5% Lidocaine with 1:200K Epinephrine Given and Negative Test Dose Loss of Resistance Depth (cm): 7 Catheter depth at skin (cm): 13 Dressing: Sorbaview Dressing Placed, Mastisol Used and Dressing reinforced with Tape Epidural Provider Bolus (Indicate Dose Given): None Given Additives (Indicate Dose Given ): None Infusion Medication: No Infusion / No Changes Made Post Procedure Pain score (0-10): 0 Block Level: N/A Paresthesia: None Ultrasound: Used to suhail site Number of Attempts (See previous attempts in note section): 2 Procedure Tolerated: No Complications Procedure Outcome: Successful Procedure Comment:: Pt positioned into spinal chair. Back extensively marked out ~T10 through S1 - significant curvature/rotation. Best identifyable spaces T-12-L1, and T11-T12. First attempt by BERNABE Brothers at T11-T12 with only bone contacted. 2nd attempt by Adama at T12-L1, significant bony contact, but good VIVIANA at 7 cm, cath threaded without difficulty, and a negative test dose obtained. Performed By: Isacc Galan
[2020-07-11] MEDS: Lidocaine 2% Multi-Dose 50 ML VIAL (12:19)
[2020-07-11] MEDS: FentaNYL/ROPIvacaine 2 mcg/ml and 0.1% 200 ML CADD Cassette EP ×2 (12:57→15:29)
--- NOTE | 2020-07-11 13:32 | ROE_ITS ---
Date of service: 07/11/20 Time of Service: 13:33 Operative Note Operative Note DATE OF PROCEDURE: 07/11/20 PRE-OP DIAGNOSIS: ventral hernia POST-OP DIAGNOSIS: same PROCEDURE: abdominal wall reconstruction/Golden-Stoppa anterior component separation w/ mesh SURGEON: Elvi Maria TEACHER KINDERGARTEN: Elvi Coleman ANESTHESIA TYPE: Local By Surgeon, General LMA/ETT and Epidural Refer to Anesthesia Record ESTIMATED BLOOD LOSS: 100 PATHOLOGY: none sent COMPLICATIONS: None Patient was transported to: PACU Implants: see RN notes Procedure Description: Flaco is a 79-year-old male who had a laparotomy 2 years ago for a jejunal diverticular perforation. Unfortunately she has developed a hernia in this incision. This is causing her significant pain and morbidity, and causing her back pain.. She can no longer walk and exercise because of this. She can no longer do her activities of daily living because of this. The pain is debilitating and makes her homebound. Patient is here today for a anterior approach of a Golden Stoppa with mesh placed. Informed consent is obtained explaining risks and benefits of procedure including not limited to: Bleeding, infection, pneumonia, blood clots, reaction to the mesh requiring removal, chronic pain, chronic numbness, recurrence of the hernia adhesions to the mesh and bowel obstructions, mesh infections requiring removal, scarring and disfigurement, prolonged healing. Complications from anesthesia including heart attack and stroke and other unforetold complications. Patient was seen and marked in preop. She is brought to the preop area and a epidural anesthetic is placed per the department of anesthesia. A midline catheter was also placed for fluids and to ensure we have good IV access. Patient is then brought to the operative suite and placed in the supine position with all bony surfaces padded. General anesthesia is administered per the department of anesthesia. Kamara catheter is placed. SCDs are placed. She did receive preop Ancef. Timeout is performed. 20 cc of 1% lidocaine plain is instilled in the cut line prior to incision. A #10 blade is used to remove the old scar; a 6 inches inch skin incision is made on the abdominal wall and vertical midline position, and excising the old scar. Electrocautery was used to provide hemostasis and dissect down to the fascia. Electrocautery is used to create the skin flaps and elevate the skin off the fascia; from the ASIS laterally, up to the 12th ribs the sternum superiorly, and down to the pubic bone inferiorly. Electrocautery and titanium clips were used provide hemostasis. the hernia sac is open. There is a large piece of omentum that is firmly adhered to the hernia sac. LigaSure is used to excise the sac and about 1/3 of the omentum. I did not completely run the whole small bowel. The site of the previous resection is noted. she has minimal intra-abdominal adhesions. the liver is palpated and feels normal. the stomach is palpated and feels normal. the ovaries and uterus are atrophic and normal. she has a few diverticula in the sigmoid but otherwise there are no masses within the within the colon. all structures are returned to their their normal anatomic position. The abdomen is irrigated to remove any blood clots. the fascia is opened to identify the rectus muscle, the peritoneum, and posterior sheath of fascia. A combination of sharp and blunt dissection was used to free up the muscle from these attachment; trying to keep the blood supply intact, was done with a combination of blunt and sharp dissection. Her posterior fascia and peritoneum was extremely thin, but they are also extremely pliable, and it is a easy dissection to develop the necessary planes. This is done on both sides of the abdomen identifying, the rectus muscle and then the peritoneum and posterior sheath. relaxing incisions are carried out on either side of the abdomen. This is done through the lateral portion of the transverse abdominis sheath, carrying this from the ribs down to the inguinal ligament. There is minimal blood loss when developing these planes. Blood loss is controlled with Yunior cautery and hemoclips. Two pieces of Interceed was placed on the bowel directly underlying the incision. The peritoneum and posterior fascia is closed with 2-0 PDS in running fashion. The mesh is trimmed to appropriate size, we use approximately 14 x 18cm piece of mesh today that covers the entire abdomen. It is tacked at the 4 cardinal point s of 12,3 6 and 9 oclock PDS. The anchor stitch transverses through the rectus muscle and the anterior sheath and is tied. The mesh is then tacked down every inch with PDS to the underside of the anterior fascia. The mesh was irrigated and all irrigation is removed. The mesh lies flat, there is no wrinkling, buckling or tension. There is no bleeding. The anterior fascia was then closed over top of the mesh with #1 PDS in a running fashion. Two #19 Maximo drains are brought out through separate stab incisions on either the left and the right sides in the dependent most portion placed in position and sewn in with 2-0 Prolene. The skin flaps are then irrigated and all irrigation was roopa removed. Ever is placed under the skin flaps to aid with hemostasis. The deep cutaneous tissues approximated with 2-0 Vicryl in a running fashion. A 1/2 inche wide vertical piece skin was removed the left side and 2 inches of skin removed on the right side this is removed with #15 blade electrocautery was used to provide hemostasis. The dog ear is fixed at the most inferior portion of the incison classic plastics fashion. The umbilicus is tacked down to the mesh and the subcuticular is closed with 3-0 Vicryl in running fashion. the skin is approximated was malini. Prevena dressing NPW dressing is applied. the drains were sewn in place and drainage suction bulbs are applied. patient tolerated the procedure well, without any complication and transferred to cover in stable condition with no immediate complications.
--- NOTE | 2020-07-11 15:35 | W.PM.PROGNOT ---
Date of Service Date of service: 07/11/20 Time of Service: 15:35 Assessment and Plan Assessment and plan (1) Ventral hernia: Status: Acute Assessment and plan: The patient is doing well post-op. Their pain is well controlled. They are having no nausea or vomiting. The pt is not having any chest pain or SOB, productive cough; no calf pain or swelling. The pt is making good urine. The case was discussed with nursing and patient?s progress reviewed. All of the pt's home medications were addressed and adjusted accordingly for their oral intact status. HEENT: no jaundice. no eye pain/drainage/redness/swelling. Mild sore throat Cardio- NSR no chest pain, BP stable. Pulm: no sob or productive cough. no hemoptysis Incision- clean/dry. Dressing intact no excessive bleeding or drainage I discussed with the patient and/or there family about the findings in surgery and the pt's progress. We reviewed expectations for progress in the hospital; what the pt could expect for recovery time and length of stay. We discussed the importance of walking and pulmonary toilet to avoid blood clots and pneumonia. Continue current plans for pulmonary toilet, GI and DVT prophylaxis. We shall continue the current plan for pain management as it is at an appropriate level, and working well for the pt. Appropriate measures will be taken for constipation prevention, and this was also reviewed with the pt. The wound care plan was reviewed with nursing as well. see orders Subjective Subjective Interval history since last seen: Pt is doing well. no headaches. No CP or SOB. no productive cough. no dysuria. no leg pain or swelling. She has a little bit of dry cough and sore throat. She is able to move her lower extremities. She has no pain or discomfort. She feels hungry and thirsty and would like to try some liquids. She has had good urine output. Her blood pressures are little soft and so the epidural was turned down from 10 to end 8. Her last blood pressure was a systolic over 107. We will continue to monitor and adjust her fluids closely and accordingly versus to decrease her epidural to accommodate blood pressure. HCTZ is being held. I don't feel she requires further abx. I do want PT to work w/her. She will most likely go home w/drains and will need home health. Objective Last Vital Signs Temp 36.4 C L 07/11/20 15:30 Pulse 62 07/11/20 15:30 Resp 17 07/11/20 15:30 BP 108/51 L 07/11/20 15:30 Pulse Ox 97 07/11/20 15:30
--- NOTE | 2020-07-11 18:14 | NUR.NOTE ---
Addendum entered by Mya Mckenna 07/11/20 19:02: Pt.'s last two sets of VS have shown decreased blood pressures. RN to keep LR infusing at 125 mL/hr and will inform oncoming RN to monitor for fluid overload and to let Dr. Maria know if this occurs. Original Note: Nursing Note: At 1800 on 07/11/20, this RN received a call from Dr. Maria. Dr. Maria was updated regarding the pt.'s status at this time. Per verbal MD order, continuous IV fluids (LR) can be titrated from 125 mL/hr to 100 mL/hr in ...roughly an hour or two if her blood pressure is better. This RN will pass this along to the oncoming RN.
[2020-07-11] MEDS: Lactated Ringers 1,000 ML 125 ML IV (18:52)
[2020-07-11] MEDS: Normal Saline Flush 10 ML SYR IV (21:55)
[2020-07-11] MEDS: Gabapentin 100 MG CAP PO (21:56)
[2020-07-12] VITALS (24 sets, daily range): BP systolic 108–153; BP diastolic 58–76; PULSE 65–78; RESP 14–20; TEMP 36.1–36.8; O2SAT 93–97
[2020-07-12] MEDS: Acetaminophen 500 MG TAB 1000 MG PO ×4 (02:04→19:19)
[2020-07-12] MEDS: Lactated Ringers 1,000 ML 100 ML IV (02:50)
[2020-07-12 07:42] LABS: Abs Immature Grans 0.24 10^3/uL (0.0-0.06); Absolute Neutrophil Count 11.09 10^3/uL (1.2-6.7); Basophils % 0.2; HCT 27.9 % (36.0-46.0); HGB 9.6 g/dL (11.2-15.7); Immature Grans % 1.9; Lymphocytes % 6.7; MCH 32.3 pg (27.0-33.0); MCHC 34.4 % (32.0-36.0); MCV 93.9 fL (80-95); MPV 10.2 fL (8.0-11.0); Monocytes % 3.2; Nucleated RBC 0 %; Platelet Count 181 10^3/uL (130-400); RBC 2.97 10^6/uL (3.93-5.22); RDW 13.3 % (11.7-14.6); RDW-SD 46.3 fL
[2020-07-12 07:43] LABS: Absolute Basophil Count 0.03 10^3/uL (0.0-0.2); Absolute Lymphocyte Count 0.84 10^3/uL (1.2-3.4)
[2020-07-12 07:44] LABS: Anion Gap 7.4 mmol/L (3-11); BUN 19 mg/dL (7-18); CO2 27.6 mmol/L (21.0-32.0); CREATININE 0.9 mg/dL (0.55-1.02); Calcium 8.3 mg/dL (8.5-10.1); Chloride 98 mmol/L (98-107); Glucose 145 mg/dL (74-106); Magnesium 1.6 mg/dL (1.8-2.4); Potassium 3.1 mmol/L (3.5-5.1); Sodium 133 mmol/L (136-145)
[2020-07-12] MEDS: Milk of Magnesia 30 ML CUP PO (08:36)
[2020-07-12] MEDS: Omeprazole 20 MG CAPCR PO (08:37)
[2020-07-12] MEDS: Enoxaparin 40 MG/0.4 ML SYR SC (08:38)
[2020-07-12] MEDS: MAGNESIUM SULFATE 2 GM/50 ML BAG IVPB (08:38)
--- NOTE | 2020-07-12 08:40 | PGE_ITS ---
Date of Service Date of service: 07/12/20 Time of Service: 08:40 Assessment and Plan Assessment and plan (1) Ventral hernia: Status: Acute Assessment and plan: POD #1 s/p Abdominal Wall reconstruction/Golden- Stoppa Anterior Component Separation with mesh. Pain is well controlled with epidural and tylenol Tolerating regular diet. Continue pulmonary toilet Progress activity as tolerated with mobility and ambulation. P// Continue with pain control. Subjective Subjective Interval history since last seen: Parminder states that she is feeling well. She denies any pain at this time. She expresses that she was able to sleep last night. Exam Const General: cooperative, healthy appearing and comfortable Resp Effort & Inspection: normal respiratory effort, no audible wheezes and no cough GI Palpation: soft, no guarding and nontender Other: DIANA dressing is in place over midline incision. Maximo drains bilaterally in lower abdomen- Bloody serous drainage noted in both. Drainage is greater in left drain. Mild ecchymosis noted at the inferior portion of the DIANA dressing. Objective Last Vital Signs Temp 36.1 C L 07/12/20 07:21 Pulse 73 07/12/20 07:21 Resp 18 07/12/20 07:21 BP 127/68 07/12/20 07:21 Pulse Ox 94 07/12/20 07:21 Laboratory Results - last 24 hr 07/12/20 07/12/20 06:21 06:21 WBC 12.60 H RBC 2.97 L Hgb 9.6 L Hct 27.9 L MCV 93.9 MCH 32.3 MCHC 34.4 RDW 13.3 Plt Count 181 MPV 10.2 Immature Gran % 1.9 Neutrophils % 88.0 Lymphocytes % 6.7 Monocytes % 3.2 Eosinophils % 0.0 Basophils % 0.2 Nucleated RBC % 0 Absolute Neutrophils 11.09 H Absolute Lymphocytes 0.84 L Absolute Monocytes 0.40 Absolute Eosinophils 0.00 Absolute Basophils 0.03 Sodium 133 L Potassium 3.1 L Chloride 98 Carbon Dioxide 27.6 Anion Gap 7.4 BUN 19 H Creatinine 0.9 Estimated GFR/1.73 m2 >= 60.00 Glucose 145 H Calcium 8.3 L Magnesium 1.6 L
[2020-07-12] MEDS: POTASSIUM CHLORIDE 20 MEQ/100 ML BAG 50 MEQ IVPB (11:15)
[2020-07-12] MEDS: FentaNYL/ROPIvacaine 2 mcg/ml and 0.1% 200 ML CADD Cassette EP (11:29)
--- NOTE | 2020-07-12 12:24 | PDOC.CMIN ---
- If Service Date Differs Date of service: 07/12/20 Time of Service: 12:24 Care Management Initial Assess REASON FOR HOSPITALIZATION:: S/P Anterior Abdominal Wall Re-Construction PAST MEDICAL HISTORY/PAST SURGICAL HISTORY:: Abnormal CT of spine. Arthritis of left shoulder region. Degenerative joint disease. Depression. Diverticulitis of jejunum. Diverticulosis. GERD (gastroesophageal reflux disease). Hernia. Hyperlipemia. Hypertension. Insomnia. Mitral valve insufficiency. Perforation of small intestine due to diverticulitis. bunionectomy. gangilion cyst. History of resection of small bowel (07/14/18). Dr Elvi Maria, [facility], secondary to diverticulitis with perforation. Hx of shoulder replacement. L. Ligation of fallopian tube. removal of ovary. Replacement of total knee joint. 2002, 2004 PREVIOUS FUNCTIONAL STATUS/SOCIAL/FAMILY SUPPORTS:: Susanna resides in [place], [place], she is . She identifies spirtually as Bapt[employer] and attends services at [facility]. Her daughter, Oxana resides nearby in [place] and another daughter, Antonella resides in [place]. She reports having five living children, two daughters and a son who reside locally. She is retired from [employer]. She is independent at baseline and utilizes a single point cane for ambulation support. Does report recent fall at home with bruise on her cheek. CURRENT FUNCTIONAL STATUS:: Susanna is experiencing some dizziness with activity and having low blood pressures which are being treated with medications per RN and MD. She remains on IVF, epidural and is tolerating a regular diet at this time. ADVANCE DIRECTIVES:: None on file - Pt reports she has one CM to contact pcp for copy. Has patient been provided with info about the portal/API?: Yes Did the patient sign up for the portal?: No CODE STATUS:: Full Code INSURANCE COVERAGE / FINANCIAL ISSUES:: Medicare CURRENT HOME/COMMUNITY SERVICES/EQUIPMENT:: [employer] PRIMARY CARE PHYSICIAN:: Dotty Estrella APRN POTENTIAL DISCHARGE NEEDS:: Follow up appointment with primary care, and surgical provider as directed. Updated advance directives. PATIENT/FAMILY EDUCATION NEEDS:: Discharge education, limitations and follow up plan of care including ask me three and self management. ANTICIPATED BARRIERS TO DISCHARGE:: None identified. TRANSPORTATION:: Via private car with family at time of discharge. PLAN:: Susanna will return home when ready per MD. She will follow up with her PCP and surgical services as directed. She continues to be closely monitored and treated at this time. CM continues to follow.
--- NOTE | 2020-07-12 12:33 | NUR.NOTE ---
Nursing Note: 724: called OR and spoke with Alessio Caputo ELEVATOR SERVICE TECHNICIAN from anesthesia regarding pt's epidural order; order in emar does not reflect order initiated by provider in OR nor what the epidural pump is currently set for. orders for 10 mL/hr with 5 mL bolus q15 minutes with max of 4 doses per hour fentanyl/ropivacaine. order scanned to emar indicates 8 mL per hour. Patito advises to keep epidural at 8 mL/hour and he will adjust the order. requested clarification of IVF order; pt currently receiving 125cc/hour with order for 75 cc/hour-Patito requests IVF order be deferred to MD. pt has lovenox 40mg ordered for 829; pt has epidural in place at this time, RN requests to confirm dosing of lovenox with epidural in place; Patito requests that lovenox be given per order with re-assessment of epidural and pending removal of sad in 1-2 days. continue to monitor
--- NOTE | 2020-07-12 12:59 | PT.INIE ---
Date of service: 07/12/20 Time of Service: 12:59 PT Notes Visit Reasons: S/P ANTERIOR ABDOMINAL WALL RE-CONSTRUCTION Physical Therapy Inpatient Initial Evaluation Date: 07/12/2020 Referring Doctor: Elvi Maria MD PT Orders: PT CONSULT: Start in a.m. 07/12. S/P extensive abdominal wall wall hernia repair/+epidural Precautions: Fall. Standard. Activity as tolerated. Patient Profile/Admitting Diagnosis: Flaco is a 79-year-old female who presented to the ED on 06/03/2020 with chief complaint of right lower abdominal pain, distention, and bloating. Patient is diagnosed with a ventral hernia and is status post abdominal wall reconstruction/Golden?Stoppa anterior component separation with mesh, mid cervical kyphosis, with disc space narrowing from C4-C5, C5-C6, and C6?C7 and anterolisthesis of C4 on C5 with hypertrophic changes of the vertebral endplate C4-C5 and C5-C6, insomnia, hypertension, mitral insufficiency, hyperlipidemia and GERD. PMHX: Medical History Abnormal CT of spine Arthritis of left shoulder region Degenerative joint disease Depression Diverticulitis of jejunum Diverticulosis GERD (gastroesophageal reflux disease) Hernia Hyperlipemia Hypertension Insomnia Mitral valve insufficiency Perforation of small intestine due to diverticulitis Surgical History bunionectomy gangilion cyst History of resection of small bowel (07/14/18) Dr Elvi Maria, [facility], secondary to diverticulitis with perforation. Hx of shoulder replacement L Ligation of fallopian tube removal of ovary Replacement of total knee joint 2002, 2004 Social History/Home Situation: Lives alone in a private home with 2 steps to enter with a rail. Reports that sister and [id number]-ope will be are both here at her house and will be staying until October to help her recover from the surgery. She also has a daughter who will be supporting her as needed. She is independent with all aspects of ADLs prior to surgery. Uses a single-point cane for all outdoor ambulation. States that she only has 1 fall in the past 12 months and this fall happened the day before she got admitted to the hospital. Equipment Owned/DME: None Subjective: Pleasant and cooperative. Reports muscle soreness at the incisional site, emphasizes that she does not feel pain and that Tylenol intake has been helping with her pain level. Denies headache, chest pain, and dizziness throughout. Objective: General Observation: Epidural pump in place, [address], Kamara catheter in place, IV in left UE Mental Status: Alert and oriented as to person, place, time, and purpose. Able to pay attention, focus, and respond appropriately. Pain: 03/12 in surgical incision Vital Signs: WNL taken while resting after walking about 80 feet ROM: Right Upper Extremity: Shoulder Flexion lacks the last 20 degrees. Shoulder abduction lacks the last 2030 degrees. Shoulder ER/IR WFL. Elbow flexion WFL. Forearm pronation/supination WFL. Wrist flexion WFL. Opening and closing of hand WFL. Left Upper Extremity: Shoulder Flexion lacks the last 20 degrees. Shoulder abduction lacks the last 2030 degrees. Shoulder ER/IR WFL. Elbow flexion WFL. Forearm pronation/supination WFL. Wrist flexion WFL. Opening and closing of hand WFL. Right Lower Extremity: Hip flexion WFL. Hip abduction WFL. Hip ER/IR WFL. Knee flexion WFL. Knee extension. Ankle dorsiflexion/eversion WFL. Ankle plantarflexion/inversion WFL. Left Lower Extremity: Hip flexion WFL. Hip abduction WFL. Hip ER/IR WFL. Knee flexion WFL. Knee extension. Ankle dorsiflexion WFL. Ankle plantarflexion WFL. Strength: Right Upper Extremity: Shoulder flexors 3-/5. Shoulder abductors 3-/5. Shoulder ER 4-/5/ Shoulder IR 4-/5. Forearm pronators 4-/5. Forearm supinators 4-/5. Elbow flexors 4-/5. Elbow extensors 4-/5. Senior Sales Manager strong. Left Upper Extremity: Shoulder flexors 3-/5. Shoulder abductors 3-/5. Shoulder ER 4-/5/ Shoulder IR 4-/5. Forearm pronators 4-/5. Forearm supinators 4-/5. Elbow flexors 4-/5. Elbow extensors 4-/5. Senior Sales Manager strong. Right Lower Extremity: Hip flexors 4-/5. Hip abductors 4-/5. Hip external rotators 4-/5. Hip internal rotators 4-/5. Knee flexors 4/5. Knee extensors 4-/5. Ankle dorsiflexors/evertors 4-/5. Ankle plantarflexors/invertors 4-/5. Left Lower Extremity: Hip flexors 4-/5. Hip abductors 4-/5. Hip external rotators 4-/5. Hip internal rotators 4-/5. Knee flexors 4/5. Knee extensors 4-/5. Ankle dorsiflexors/evertors 4-/5. Ankle plantarflexors/invertors 4-/5. Bed Mobility/Transfers: Rolling standby assist Supine to sit standby assist with HOB 45 degrees Sit to supine minimal assist to left LE due to pain and discomfort in surgical incision Sit to stand contact-guard assist Stand to sit contact-guard assist Bed to chair contact-guard assist Chair to bed contact-guard assist Gait: Guided patient through level surface ambulation of 80 feet +80 feet using front wheeled walker with full weight bearing requiring only standby assist with wheelchair follow for safety. Gait pattern unremarkable except for slowed chemo due to postoperative status. Balance: Static Sitting: Normal Dynamic Sitting: Normal Static Standing: Good Dynamic Standing: Fair Special Tests: Mobility Limitations Standardized Measure [facility] AM-PAC 6 clicks Basic Mobility Inpatient Short Form: Raw Score: 18 CMS Score: 47% deficit Informed Consent/Education: Patient was instructed in purpose of PT consult and plan of care. Agreeable to proceed with established PT POC to achieve personal goals. Assessment: Flaco demonstrates limited ability to perform supine to sit due to disc increased discomfort at surgical incision requiring minimal assist to left lower extremity. May look at training patient using a leg public information relations manager to maximize independence for this. Patient currently requires standby assist with level surface ambulation due to postoperative status. Patient presents with clinical signs and symptoms consistent with current/admitting diagnoses that have resulted to mobility limitations, gait instability, generalized weakness, and impairment of motor control as demonstrated by the following impairment level findings: 1. Decreased strength to B LE major muscle groups 2. Impaired standing balance 3. Impaired activity tolerance 4. Limitation hip flexion during sit to supine activity Impairments are contributing to the following functional limitations: 1. Dependent bed mobility skills 2. Increased dependence with transfers 3. Inability to safely ambulate without assistive device 4. Increase completion time for mobility ADL performance 5. Increased fall risk 6. Inability to negotiate steps alone safely 7. Inability to return to prior living environment at this time Patient is assessed as a 22951 moderate complexity based on the following: History: 79-year-old female with past medical history as indicated above Examination: Demonstrable impairment in strength, balance, and mobility level with underlying impairments and functional limitations as exhibited above as well as deficit score of 47% utilizing the [facility] Mobility Inpatient Short Form Presentation: Evolving Decision Makin moderate complexity Goals: Goals X1 week 1. Supine-Sit independent 2. Sit-Supine independent 3. Sit-Stand independent 4. Stand-Sit independent 5. Bed-Chair independent 6. Chair-Bed independent 7. Independent gait on level surface with use of front wheeled walker for at least 100 feet without report of pain nor dyspnea 8. Independent stair negotiation while holding onto 1 rail for at least 3 steps without report of pain nor dyspnea 9. Independent with home exercise program 10. Good static and dynamic standing balance/tolerance Plan of Care/Treatment Plan: 1-2x/day, 7 days/week x 1 week. Plan of care has been reviewed with the MODELING AGENT providing the service under Physical Therapy direction. Initiate Physical Therapy intervention for pain management as needed, strengthening, bed mobility, transfers, gait, stairs, balance training, and use of assistive device. DISCHARGE RECOMMENDATIONS: Patient will benefit from home health PT services in order to progress mobility level using least restrictive assistive ambulatory device, assess home safety, identify additional equipment needs, and establish a functional maintenance program that will increase ability of patient to remain at home. TREATMENT CODE/TIME: 34239 x 20 minutes, 29394 x 25 minutes beginning at 12:59 PM. Thank you for the opportunity to participate in the care of this patient. Samantha Gant PT, DPT, CLT [facility] [place], [place]
--- NOTE | 2020-07-12 14:37 | W.ANESPOSTOP ---
Postoperative Evaluation Date, Time and Location Date Performed: 07/12/20 Time Performed: 14:38 Patient Location: Med/Surg Vital Signs Most Recent Imported Vital Signs: Most Recent Vital Signs Temp Pulse Resp BP Pulse Ox 36.8 C 76 16 117/64 95 07/12/20 11:20 07/12/20 11:20 07/12/20 14:21 07/12/20 11:20 07/12/20 11:20 Pain Score Most Recent Pain Score: Most Recent Pain Score Pain Level [Mid Anterior 0 07/12/20 10:30 Abdomen] Pain Level 0 07/12/20 12:13 Assessment Mental Status: Awake (Alert & Oriented to Patient Baseline) Airway and Respiratory Function: Patent airway with normal (patient baseline) respiratory exam Cardiovascular Function: Hemodynamically Stable Hydration Status: Adequately Hydrated Nausea & Vomiting: No Nausea or Vomiting Pain: Pt. Denies Any Pain Peripheral Nerve Block: Patient did not receive a nerve block
--- NOTE | 2020-07-12 14:38 | W.ANESEPD ---
Epidural/Spinal Daily Note Date Performed: 07/12/20 Assessment Time: 14:38 Procedure Location: Med/Surg Catheter Type in Place: Epidural Catheter Dressing Assessment: Dressing intact with good adherence Catheter Assessment: Catheter Labeled and Intact and Functioning Previous Catheter Depth Noted (cm): 13 Current Catheter Depth (cm): 13 Current Medication Infusion: Ropivacaine 0.1% with Fentanyl 2mcg/ml Current Maintenance Infusion Rate (ml/hour): 8 Current PCEA Bolus Dose (ml): 5 Current Pain Score (0-10): 0 Medication Infusion Stopped, Catheter Removal Planned: No New Bolus Given or Change in Infusion Made: No Daily Management Comments: Denies pain, has been up and to the chair. States that she is just having what feels like sore stomach muscles. Will assess in the AM, but discussed that we would likely put the epidural on hold tomorrow morning to see how she is doing without it. Performed By: Isacc Galan
[2020-07-12] MEDS: Lactated Ringers 1,000 ML 75 ML IV (16:11)
[2020-07-12] MEDS: Gabapentin 100 MG CAP PO (21:17)
[2020-07-13] VITALS (17 sets, daily range): BP systolic 130–176; BP diastolic 67–87; PULSE 75–103; RESP 16–19; TEMP 36.6–37.1; O2SAT 93–97
[2020-07-13] MEDS: Acetaminophen 500 MG TAB 1000 MG PO ×3 (02:11→18:55)
[2020-07-13] MEDS: Lactated Ringers 1,000 ML 75 ML IV (03:49)
--- NOTE | 2020-07-13 07:18 | W.ANESEPD ---
Epidural/Spinal Daily Note Date Performed: 07/13/20 Assessment Time: 07:19 Procedure Location: Med/Surg Catheter Type in Place: Epidural Catheter Dressing Assessment: Dressing intact with good adherence Catheter Assessment: Catheter Labeled and Intact and Functioning Previous Catheter Depth Noted (cm): 13 Current Catheter Depth (cm): 13 Current Medication Infusion: Ropivacaine 0.1% with Fentanyl 2mcg/ml Current Maintenance Infusion Rate (ml/hour): 0 Current PCEA Bolus Dose (ml): 0 Current Pain Score (0-10): 0 Medication Infusion Stopped, Catheter Removal Planned: Yes New Bolus Given or Change in Infusion Made: No Daily Management Comments: Pump placed on hold this AM, plan to reassess later today and if no pain will aim to remove catheter this evening. Performed By: Isacc Galan
[2020-07-13 07:31] LABS: Anion Gap 5.8 mmol/L (3-11); BUN 19 mg/dL (7-18); CO2 28.2 mmol/L (21.0-32.0); CREATININE 0.7 mg/dL (0.55-1.02); Chloride 100 mmol/L (98-107); Glucose 102 mg/dL (74-106); Magnesium 1.7 mg/dL (1.8-2.4); Potassium 3.4 mmol/L (3.5-5.1); Sodium 134 mmol/L (136-145)
[2020-07-13] MEDS: Omeprazole 20 MG CAPCR PO (07:54)
[2020-07-13] MEDS: Psyllium PKT 1 EACH PO ×2 (07:54→19:53)
[2020-07-13] MEDS: hydroCHLOROthiazide 25 MG TAB 50 MG PO (07:54)
--- NOTE | 2020-07-13 08:41 | PGE_ITS ---
Documented by User: RAFAEL Dos Santos 07/13/20 08:47 Date of Service Date of service: 07/13/20 Time of Service: 08:41 Assessment and Plan Assessment and plan (1) Ventral hernia: Status: Acute Assessment and plan: POD #2 s/p Abdominal Wall reconstruction/Golden- Stoppa Anterior Component Separation with mesh. Pain is currently well controlled this morning. The epidural was turned off this morning. Continue with PO pain medications. Tolerating regular diet. Continue pulmonary toilet Progress activity as tolerated with mobility and ambulation. Bilateral Maximo drains in place with serosanginous fluid P// Continue with pain control and activity as tolerated Subjective Subjective Interval history since last seen: Parminder reports that she is feeling well this morning. She describes abdominal soreness. Denies and SOB, chest pain or palpi tations. Exam Const General: cooperative, healthy appearing and comfortable Orientation: alert and oriented x3 Resp Effort & Inspection: normal respiratory effort, no audible wheezes and no cough GI Inspection: abdominal wall ecchymosis (inferor to DIANA dressing ) Other: Bilateral Maximo drains in place, with serosanginous fluid. Tenderness to palpation throughout the abdomen. Objective Last Vital Signs Temp 37.1 C 07/13/20 07:20 Pulse 79 07/13/20 07:20 Resp 16 07/13/20 07:20 BP 130/77 07/13/20 07:20 Pulse Ox 93 07/13/20 07:20 Laboratory Results - last 24 hr 07/13/20 06:24 Sodium 134 L Potassium 3.4 L Chloride 100 Carbon Dioxide 28.2 Anion Gap 5.8 BUN 19 H Creatinine 0.7 Estimated GFR/1.73 m2 >= 60.00 Glucose 102 Calcium 8.0 L Magnesium 1.7 L Documented by User: Elvi Maria DO 07/13/20 20:49 Assessment and Plan Assessment and plan (1) Ventral hernia: Status: Acute Assessment and plan: Patient tried having her epidural stopped this a.m. and.did not tolerated well. It is currently turned back on and she feels much better. We discussed pain control and the importance of adequate pain control in order to have her up walking around to prevent deconditioning and blood clots and to provide adequate pulmonary toilet to avoid pneumonia. Patient expresses understanding. She has had good urine output. She was able to tolerate a regular diet. She still has not had a bowel movement and is a little distended today. And we will work on that. Her BP was low initially after surgery so her amlodipine was held. Her BP is slightly elevated today and will restart the amlodipine. Her hemoglobin was down further than I would have anticipated. Her IV fluids were stopped today. We will check an H&H on Friday. Continue ambulating and pulmonary toilet. Patient seen and examined and agree with above
[2020-07-13] MEDS: traMADol 50 MG TAB PO (09:22)
[2020-07-13] MEDS: Enoxaparin 40 MG/0.4 ML SYR SC (12:22)
[2020-07-13] MEDS: Magnesium Citrate 300 ML BTL 150 ML PO (13:04)
--- NOTE | 2020-07-13 13:26 | CMPROGNOTE_ITS ---
Care Management Progress Note S/O: Susanna continues to be closely monitored and treated. Per provider, epidural turned off this morning; pain being managed with oral medications at this time. Bilateral WAI drains in place, Dr. Maria reports home health nursing will be ordered upon discharge, notified [facility]. Susanna was lying in bed when CM met with her, she reported she had vomited which she attributed to bowel meds, because she has not had a bowel movement. She shared no other concerns at this time, and reported her sister and brother in law would be staying with her after she returns home. She was agreeable to home health RN support at home. CM continues to follow. A: 79 year old female admitted to [facility] 07/11/20 for S/P Anterior Abdominal Wall Re-Construction P: Susanna will return home where her sister and brother in law will be staying with her. Anticipate MD with new orders for VNA RN for WAI drain management. She will follow up with her PCP and surgical services as directed. She continues to be closely monitored and treated at this time. CM continues to follow.
--- NOTE | 2020-07-13 14:00 | CHAPLAIN ---
Susanna was resting in bed when I visited. She is from [place], [place] and has several family members living nearby. One of her daughters unexpectedly five years ago from a seizure and her three years ago. They were over 40 years. Each had their own children from previous marriages, and then had one child together. Susanna is a member of the [employer] has felt very supported by the scientologist. Family members are also strong supports she said. She said realized that her night nurse, last night was Orthodoxy and they had a good conversation about swati.
[2020-07-13] MEDS: Ondansetron 4 MG/2 ML VIAL IVP (14:11)
[2020-07-13] MEDS: Normal Saline Flush 10 ML SYR IVP (14:12)
--- NOTE | 2020-07-13 14:51 | PT.INNT ---
Date of service: 07/13/20 Time of Service: 14:52 PT Notes Visit Reasons: S/P ANTERIOR ABDOMINAL WALL RE-CONSTRUCTION 07/13/2020 Patient refused morning PT session, as she was just getting comfortable after having significant pain for most of the morning. Hold afternoon session due to N/V, pain, and c/o feeling woozy. Nursing is aware and agreeable to holding PT. Will attempt to resume PT services tomorrow morning.
[2020-07-13] MEDS: FentaNYL/ROPIvacaine 2 mcg/ml and 0.1% 200 ML CADD Cassette EP (15:04)
[2020-07-13] MEDS: Lactulose 20 GM/30 ML CUP PO (15:44)
--- NOTE | 2020-07-13 16:05 | PHA.REVIEW ---
Pharmacy Admission Review - Admission Clinical Review (Last Reviewed 07/11/20 @ 07:42 by Myriam Foster) Degenerative joint disease (Acute 06/01/14) GERD (gastroesophageal reflux disease) (Acute 06/01/14) Hyperlipidemia (Acute 06/01/14) Hypertension (Acute 06/01/14) Insomnia (Acute 06/01/14) Mitral insufficiency (Acute 06/01/14) Ventral hernia (Acute) Ventral hernia (Acute) Abnormal CT of spine (Acute) losartan Allergy (Severe, Verified 07/11/20 07:43) amitriptyline [From Elavil] Allergy (Mild, Verified 07/11/20 07:43) lisinopril Adverse Reaction (Intermediate, Verified 07/11/20 07:43) cough codeine phosphate [From Tylenol-Codeine] Adverse Reaction (Verified 07/11/20 07:43) nausea/vomiting metronidazole [From Flagyl] Adverse Reaction (Verified 07/11/20 07:43) nausea sulfamethoxazole [From Bactrim] Adverse Reaction (Verified 07/11/20 07:43) nausea/vomiting/diarrhea trimethoprim [From Bactrim] Adverse Reaction (Verified 07/11/20 07:43) nausea/vomiting/diarrhea tdap Adverse Reaction (Uncoded 07/11/20 07:43) complete body ache Height 5 ft 1 in Weight 72.8 kg - Renal Dosing Renal Dosing: BUN 19 mg/dL (7-18) H 07/13/20 06:24 Creatinine 0.7 mg/dL (0.55-1.02) 07/13/20 06:24 Medications needing adjustments: Reviewed - Anticoagulation Anticoagulation: Hgb 9.6 g/dL (11.2-15.7) L 07/12/20 06:21 Hct 27.9 % (36.0-46.0) L 07/12/20 06:21 Plt Count 181 10^3/uL (130-400) 07/12/20 06:21 Creatinine 0.7 mg/dL (0.55-1.02) 07/13/20 06:24 DVT Prohphylaxis: Reviewed Medications: Enoxaparin - Opiate Usage Evaluate Pain Scale/Pains Meds: Reviewed Scheduled Bowel Reg ordered if on Opiates?: No - Relevant Labs Sodium 134 mmol/L (136-145) L 07/13/20 06:24 Potassium 3.4 mmol/L (3.5-5.1) L 07/13/20 06:24 Chloride 100 mmol/L (98-107) 07/13/20 06:24 Magnesium 1.7 mg/dL (1.8-2.4) L 07/13/20 06:24 Electrolytes, C-Reactive P, ESR: Intervened - DM Control DM Control: Glucose 102 mg/dL (74-106) 07/13/20 06:24 Insulin Dosing: Reviewed - Heart Failure/IA EF%, ZOE's, B-Blockers, Diuretics: Reviewed - BP Control BP Control: Blood Pressure 166/81 Blood Pressure 150/85 Blood Pressure 133/73 Blood Pressure 146/73 Blood Pressure 130/77 If elevated: Reviewed List meds needing interventions: several low readings through out day on 07/11 with epidural running, still has epidural running so MD is hesitant to restart amlodipine; patient also states MD instructed her to hold amlodipine recently but per RN note prior to surgery pt had several higher readings measured via automated cuff at home - Qtc Review If Elevated: N/A - IV to PO Switch IV Medications: Reviewed - Home Meds Home Med List reviewed: Reviewed Relevent Home Meds Not ordered & why?: per patient her PCP instructed her to hold amlodipine... although dose has been titrating up past few months (?) -- will leave on home med list with note in rx instructions - Current meds Current Medication Order Review: Reviewed - Comments Comments/Follow Ups: epidural still running at 8ml/hr
[2020-07-13] MEDS: Bisacodyl 10 MG SUPP PR (18:55)
[2020-07-13] MEDS: Gabapentin 100 MG CAP PO (21:40)
[2020-07-14] VITALS (11 sets, daily range): BP systolic 125–158; BP diastolic 74–85; PULSE 73–89; RESP 18–20; TEMP 36.4–36.8; O2SAT 93–96
[2020-07-14] MEDS: Acetaminophen 500 MG TAB 1000 MG PO ×3 (01:27→18:54)
[2020-07-14 06:39] LABS: HCT 28.1 % (36.0-46.0); HGB 9.5 g/dL (11.2-15.7); MCH 31.8 pg (27.0-33.0); MCHC 33.8 % (32.0-36.0); MPV 9.6 fL (8.0-11.0); Platelet Count 163 10^3/uL (130-400); RBC 2.99 10^6/uL (3.93-5.22); RDW 13.4 % (11.7-14.6)
--- NOTE | 2020-07-14 06:59 | ANES.NEURP_ITS ---
Epidural/Spinal Daily Note Date Performed: 07/14/20 Assessment Time: 06:59 Procedure Location: Med/Surg Catheter Type in Place: Epidural Catheter Dressing Assessment: Dressing intact with good adherence Catheter Assessment: Catheter Labeled Previous Catheter Depth Noted (cm): 13 Current Catheter Depth (cm): 13 Current Medication Infusion: Ropivacaine 0.1% with Fentanyl 2mcg/ml Current Maintenance Infusion Rate (ml/hour): 8 Current PCEA Bolus Dose (ml): 5 Current Pain Score (0-10): 2 Medication Infusion Stopped, Catheter Removal Planned: No New Bolus Given or Change in Infusion Made: No Daily Management Comments: Discussed that we typically leave epidural in for 4-5 days and that we need to make a plan for removal. pt understands. currently doing well and looks comfortable. Cases discussed with THERMO CEMENTING FOLDER OPERATOR that will be science liaison for the weekend. Performed By: Isacc Galan
[2020-07-14] MEDS: Omeprazole 20 MG CAPCR PO (08:03)
[2020-07-14] MEDS: Normal Saline Flush 10 ML SYR IVP ×3 (08:03→21:50)
[2020-07-14] MEDS: amLODIPine 10 MG TAB PO (08:04)
[2020-07-14] MEDS: Bisacodyl 5 MG TABEC PO (08:05)
[2020-07-14] MEDS: hydroCHLOROthiazide 25 MG TAB 50 MG PO (08:05)
[2020-07-14] MEDS: Psyllium PKT 1 EACH PO ×2 (09:27→20:40)
--- NOTE | 2020-07-14 09:37 | PT.INTREAT ---
Date of service: 07/14/20 Time of Service: 08:50 PT Notes Visit Reasons: S/P ANTERIOR ABDOMINAL WALL RE-CONSTRUCTION Inpatient Physical Therapy Treatment Note [facility] Date: 07/14/2020 PRECAUTIONS: Fall SUBJECTIVE: Susanna reports that she is feeling much better today, although she is very tired. She reports that she is woken up every hour during the night, and she is finding that difficult. OBJECTIVE: Wound vac, bilateral WAI drain, Kamara catheter, epidural tubing. PAIN: No c/o pain BED MOBILITY/TRANSFERS Supine-sit: I Sit-supine: I with HOB flat Sit-stand: S Stand-sit: S Bed-Chair: S Chair-bed: S GAIT Assistive Device: FWW Weight bearing: Full Assist: SBA in a.m.; S in p.m. Distance: 150' in a.m.; 150' x2 in p.m. Deviation: Slow chemo in a.m. and p.m.; standing rest x1 in a.m.; seated rest x1 in p.m. THEREX: Patient was instructed in a seated LE strengthening program, as per flow sheet. STAIRS: Up/down 3x4 and 2x6 using B rails and a step-to pattern with supervision ASSESSMENT: Patient tolerated session well, without complaint of pain. She was able to tolerate a progression in gait distance with FWW support and supervision. She does report significant fatigue. PLAN: Continue with global strengthening and gait training for improved activity tolerance and continued progression toward baseline level of function. TREATMENT CODE/TIME: Session 1: 30 minutes; 69675 x2 (08:50) Session 2: 30 minutes; 78899, 63172 (14:00)
[2020-07-14] MEDS: Enoxaparin 40 MG/0.4 ML SYR SC (12:58)
--- NOTE | 2020-07-14 13:23 | PGE_ITS ---
Documented by User: RAFAEL Dos Santos 07/14/20 13:28 Date of Service Date of service: 07/14/20 Time of Service: 07:00 Assessment and Plan Assessment and plan (1) Ventral hernia: Status: Acute Assessment and plan: POD #3 s/p Abdominal Wall reconstruction/Golden- Stoppa Anterior Component Separation with mesh. Abd pain is currently under control. Epidural continues to be in place. (+) BM yesterday Tolerating regular diet. Continue pulmonary toilet Progress activity as tolerated with mobility and ambulation. P// Continue with pain control and activity as tolerated Subjective Subjective Interval history since last seen: Parminder states that she is feeling okay this morning. She states that when the epidural was turned off, she was in severe pain yesterday, after which she was exhausted. Exam Const General: cooperative, healthy appearing and comfortable Orientation: alert and oriented x3 Resp Effort & Inspection: normal respiratory effort, no audible wheezes and no cough GI Other: Bilateral Maximo drains- minimal serosanginous drainage DIANA dressing in place. Objective Last Vital Signs Temp 36.5 C 07/14/20 10:54 Pulse 78 07/14/20 10:54 Resp 19 07/14/20 10:54 BP 154/79 H 07/14/20 10:54 Pulse Ox 95 07/14/20 10:54 Laboratory Results - last 24 hr 07/14/20 06:05 WBC 7.00 RBC 2.99 L Hgb 9.5 L Hct 28.1 L MCV 94.0 MCH 31.8 MCHC 33.8 RDW 13.4 Plt Count 163 MPV 9.6 Documented by User: Elvi Maria DO 07/15/20 11:32 Assessment and Plan Assessment and plan (1) Ventral hernia: Status: Acute Assessment and plan: Patient seen and examined. Agree with above. Patient is very tired today. She does not have much appetite. She had 2 bowel movements last night and was up most of the night. She has good bowel sounds at the time of the examination but is still somewhat distended.
[2020-07-14] MEDS: Ondansetron 4 MG/2 ML VIAL IVP ×2 (14:46→21:50)
[2020-07-14] MEDS: FentaNYL/ROPIvacaine 2 mcg/ml and 0.1% 200 ML CADD Cassette EP (16:14)
--- NOTE | 2020-07-14 18:17 | PDOC.CMPRO ---
Care Management Progress Note S/O: Susanna continues to be closely monitored and treated. Per provider, epidural in place with good pain control at this time. Susanna is tolerating a regular diet and had a BM yesterday. Bilateral WAI drains in place, she remains agreeable to home health RN support at home. CM continues to follow. A: 79 year old female admitted to [facility] 07/11/20 for S/P Anterior Abdominal Wall Re-Construction P: Susanna will return home where her sister and brother in law will be staying with her. Anticipate MD will orders new VNA RN for WAI drain management. She will follow up with her PCP and surgical services as directed and transport home with her family. She continues to be closely monitored and treated at this time. CM continues to follow.
[2020-07-14] MEDS: Gabapentin 100 MG CAP PO (21:43)
[2020-07-15] VITALS (10 sets, daily range): BP systolic 124–193; BP diastolic 72–83; PULSE 73–97; RESP 16–19; TEMP 36.4–37; O2SAT 94–98
[2020-07-15] MEDS: Acetaminophen 500 MG TAB 1000 MG PO ×3 (01:54→18:17)
[2020-07-15 07:13] LABS: HCT 27.3 % (36.0-46.0); HGB 9.6 g/dL (11.2-15.7)
--- NOTE | 2020-07-15 08:53 | PDOC.CMPRO ---
- If Service Date Differs Date of service: 07/15/20 Time of Service: 09:03 Care Management Progress Note S/O: Susanna was lying in bed when CM met with her. She stated that she was not feeling well at all as she had vomited during the night and again this morning. Yesterday she tolerated a diet and she stated that she feels the nausea and vomiting is from not eating at her regular meal times. She shared that she eats breakfast at 6 am at home and that if she doesn't eat, she gets sick. Her breakfast did not come until 8:30 and was too late, she claimed. CM assured her that when she is again able to tolerate food, an effort will be made to give her something to eat at 6am until her regular breakfast arrives. Susanna remains afebrile and her WBC has returned to normal. A: 79 year old female admitted to [facility] 07/11/20 for S/P Anterior Abdominal Wall Re-Construction P: Susanna will return home where her sister and brother in law will be staying with her. Anticipate MD will orders new LAURYN RN for WAI drain management. She will follow up with her PCP and surgical services as directed and transport home with her family. She continues to be closely monitored and treated at this time. CANELO continues to follow. cc:
--- NOTE | 2020-07-15 09:42 | PT.INTREAT ---
PT Notes Visit Reasons: S/P ANTERIOR ABDOMINAL WALL RE-CONSTRUCTION Inpatient Physical Therapy Treatment Note [facility] Date: 07/15/20 OBJECTIVE: Sit-stand: SBA Stand-sit: SBA GAIT Assistive Device: FWW Weight bearing: Full Assist: SBA Distance: [id number] [address] THEREX: Pt completed LE strengthening ther ex as per flow sheet. ASSESSMENT: Pt tolerated today's session well. Pt was more fatigued today with ambulation. PLAN: Cont as per PT POC. TREATMENT CODE/TIME: (25) TA TP
[2020-07-15] MEDS: Normal Saline Flush 10 ML SYR IVP ×2 (09:54→12:29)
[2020-07-15] MEDS: Bisacodyl 5 MG TABEC PO ×2 (09:55→20:04)
[2020-07-15] MEDS: hydroCHLOROthiazide 25 MG TAB 50 MG PO (09:55)
[2020-07-15] MEDS: Omeprazole 20 MG CAPCR PO (09:55)
[2020-07-15] MEDS: amLODIPine 10 MG TAB PO (09:56)
--- NOTE | 2020-07-15 10:45 | DI.RAD_ITS ---
Exam(s) XR ABDOMEN FLAT UPRIGHT EXAM: XR ABDOMEN FLAT UPRIGHT CLINICAL HISTORY: vomiting in pt post abd surgery. TECHNIQUE: 2D digital imaging was performed. COMPARISON: CT CT ABDOMEN PELVIS W from 06/03/2020 FINDINGS: There are vertical skin clips in the midline pelvis which is probably related to repair of the anteri or abdominal hernia seen on CT scan 06/03/2020. Bilateral Maximo-type drains are noted. Is no free air evident on the upright view. A few air-fluid levels are noted in right of center bowel loops but there does appear to be air more distally in the colon. Moderate amount of fecal material is noted throughout the colon. No dose distension. No abn ormal calcifications noted. Visualized lung bases are clear. IMPRESSION: Surgical drains in place. Air is seen in normal caliber bowel loops. There is a mild amount of fecal material in the colon. N o free air evident. DATA REPOSITORY: RADIATION DOSE DELIVERED:
--- NOTE | 2020-07-15 11:32 | PGE_ITS ---
Date of Service Date of service: 07/15/20 Time of Service: 11:32 Assessment and Plan Assessment and plan (1) Ventral hernia: Status: Acute Assessment and plan: POD#4 Nausea and vomiting and distention. X-ray shows ileus and stool. She is mildly behind on her fluid status. We will do some gentle hydration and monitor her fluid status and BP closely. Encourage ambulation this afternoon. I did change her bowel program. Case reviewed with nursing. She can have water and ice chips as she feels she can Plan on removing epidural tomorrow. Hold p.m. dose of Lovenox tonight Subjective Subjective Interval history since last seen: Patient was very nauseated throughout the nig ht. She had a very large emesis this morning. X-rays today show no free air. A few dilated loops of small bowel and a significant amount of stool in the colon. She is about 5 to 8000 cc of fluid behind. She did have a bowel movement this morning but it was very very small. She does have a few bowel sounds present. She is very nauseous. She is distended. She is tender all over but this is p retty much normal for her case. I do not see any true signs of peritonitis or signs of intraoperative bowel injury. We will work on rest and hydration and control of the nausea for now. But I would like to see her up walking more this afternoon. We will closely monitor her fluid status. No signs of pneumonia or DVT Exam Resp Effort & Inspection: normal respiratory effort and able to speak in complete sentences Auscultation: clear to auscultation bilaterally Cardio Rate: regular rate Rhythm: regular rhythm Other: Blood pressure was 159/70. She did throw up her blood pressure medication this morning so we will monitor this closely GI Other: Distended. Bowel sounds are hypoactive but present. Lots of nausea. No redness or drainage. Extrem Other: Mild pitting edema of the lower extremities. She did throw up her hyd rochlorothiazide this morning Objective Last Vital Signs Temp 36.4 C L 07/15/20 10:01 Pulse 75 07/15/20 10:01 Resp 16 07/15/20 10:01 BP 159/79 H 07/15/20 10:01 Pulse Ox 98 07/15/20 10:01 Laboratory Results - last 24 hr 07/15/20 06:55 Hgb 9.6 L Hct 27.3 L
--- NOTE | 2020-07-15 12:04 | DI.VRAD_ITS ---
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 Unfortunately she has developed a hernia in this incision. This is causing her significant pain and morbidity, and causing her back pain. She can no longer walk and exercise because of this. She can no longer do her activities of daily living because of this. The pain is debilitating and makes her homebound. Patient is here today for a anterior approach of a del rosario stoppa with mesh placed. Informed consent is obtained explaining risks and benefits of procedure including not limited to: Bleeding, infection, pneumonia, blood clots, reaction to the mesh requiring removal, chronic pain, chronic numbness, recurrence of the hernia adhesions to the mesh and bowel obstructions, mesh infections requiring removal, scarring and disfigurement, prolonged healing. Complications from anesthesia including heart attack and stroke and other unforetold complications. Patient was seen and marked in preop. She is brought to the preop area and a epidural anesthetic is placed per the department of anesthesia. A midline catheter was also placed for fluids and to ensure we have good iv access. Patient is then brought to the operative suite and placed in the supine position with all bony surfaces padded. General anesthesia is administered per the department of anesthesia. Kamara catheter is placed. Scds are placed. She did receive preop ancef. Timeout is performed. 20 cc of 1% lidocaine plain is instilled in the cut line prior to incision. A #10 blade is used to remove the old scar; A 6 inches inch skin incision is made on the abdominal wall and vertical midline position, and excising the old scar. Electrocautery was used to provide hemostasis and dissect down to the fascia. Electrocautery is used to create the skin flaps and elevate the skin off the fascia; From the asis laterally, up to the 12th ribs the sternum superiorly, and down to the pu TECHNIQUE: Imaging protocol: XR of the abdomen. Views: 2 Views. Upright and supine views. COMPARISON: CT ABDOMEN PELVIS W 06/03/2020 12:23 PM FINDINGS: Tubes, catheters and devices: Bilateral drainage catheters in the lower abdomen. Wire tubing projects over the midline lower chest and abdomen. Gastrointestinal tract: Gas in normal caliber loops of large and small bowel with a moderate amount of stool the colon. Intraperitoneal space: No free air. 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 Soft tissues: Abdominal surgical and skin malini. IMPRESSION: 1. Gas in normal caliber bowel with a large amount of stool in the colon 2. Postoperative changes in abdomen with abdominal surgical clips and drains. Dictated and Authenticated by: Crystal Alvarez MD. Ordering:FRANKIE Boles MD
[2020-07-15] MEDS: Lactated Ringers 1,000 ML 100 ML IV ×2 (12:32→19:37)
[2020-07-15] MEDS: Ondansetron 4 MG/2 ML VIAL IVP (12:46)
--- NOTE | 2020-07-15 14:26 | W.ANESEPD ---
Epidural/Spinal Daily Note Date Performed: 07/15/20 Assessment Time: 14:26 Procedure Location: Med/Surg Catheter Type in Place: Epidural Catheter Dressing Assessment: Dressing intact with good adherence Catheter Assessment: Catheter Labeled, Intact and Functioning and Planned Removal, team aware, Anticoagulant Therapy Addressed (Plan to remove catheter tomorrow morning, 12 hours after last Lovenox dosing. Lovenox was held at noon today, plan to give with anticipation of removal tomorrow.) Previous Catheter Depth Noted (cm): 13 Current Catheter Depth (cm): 13 Current Medication Infusion: Ropivacaine 0.1% with Fentanyl 2mcg/ml Current Maintenance Infusion Rate (ml/hour): 8 Current PCEA Bolus Dose (ml): 5 Current Pain Score (0-10): 3 Medication Infusion Stopped, Catheter Removal Planned: No New Bolus Given or Change in Infusion Made: No Performed By: Monse Other (not listed above): Discussed plan with Dr. Maria
[2020-07-15] MEDS: Bisacodyl 10 MG SUPP PR (16:10)
[2020-07-15] MEDS: Enoxaparin 40 MG/0.4 ML SYR SC (16:12)
[2020-07-15] MEDS: FentaNYL/ROPIvacaine 2 mcg/ml and 0.1% 200 ML CADD Cassette EP (17:37)
[2020-07-15] MEDS: Sennosides/Docusate Sodium TAB 1 TAB PO (20:04)
[2020-07-15 23:38] LABS: Bilirubin Negative (Negative); Blood Small (Negative); Clarity Sl Cloudy (Clear); Glucose Negative (Negative); Ketones 40 mg/dL (Negative); Leukocyte Esterase Small (Negative); Nitrite Positive (Negative); Urobilinogen 0.2 EU/dL (Up TO 0.2)
[2020-07-15 23:46] LABS: Bacteria Many HPF (Negative); C & S Indicated? Yes; Casts Negative LPF (Negative); Crystals Moderate Amorphous HPF (Negative); Epithelial Cells Negative HPF (Negative); Mucus Negative (Negative); WBC 20-50 HPF (0-5)
[2020-07-16] MEDS: Acetaminophen 500 MG TAB 1000 MG PO ×2 (02:14→21:31)
[2020-07-16 04:13] VITALS: BP 146/76; PULSE 79; RESP 18; TEMP 36.3; O2SAT 97
[2020-07-16] MEDS: Lactated Ringers 1,000 ML 100 ML IV (05:13)
--- NOTE | 2020-07-16 07:00 | DI.RAD_ITS ---
Exam(s) XR ABDOMEN FLAT UPRIGHT EXAM: XR ABDOMEN FLAT UPRIGHT CLINICAL HISTORY: sbo/s/p laparotomy. TECHNIQUE: 2D digital imaging was performed. COMPARISON: CR,XR XR ABDOMEN FLAT UPRIGHT from 07/15/2020 FINDINGS: Surgical drains again noted. No free air. Nonspecific bowel gas pattern. No obvious small bowel ob struction at this time. Air is seen in the colon and rectum. IMPRESSION: DATA REPOSITORY: RADIATION DOSE DELIVERED:
[2020-07-16 07:05] VITALS: BP 166/80; PULSE 79; RESP 18; TEMP 37; O2SAT 95
[2020-07-16 07:25] LABS: Abs Immature Grans 0.09 10^3/uL (0.0-0.06); Absolute Basophil Count 0.02 10^3/uL (0.0-0.2); Absolute Eosinophil Count 0.14 10^3/uL (0.0-0.7); Absolute Lymphocyte Count 0.97 10^3/uL (1.2-3.4); Absolute Monocyte Count 0.77 10^3/uL (0.1-0.8); Absolute Neutrophil Count 3.72 10^3/uL (1.2-6.7); Basophils % 0.4; Eosinophils % 2.5; HCT 28.7 % (36.0-46.0); HGB 9.9 g/dL (11.2-15.7); Immature Grans % 1.6; MCH 31.6 pg (27.0-33.0); MCHC 34.5 % (32.0-36.0); MCV 91.7 fL (80-95); MPV 9.6 fL (8.0-11.0); Monocytes % 13.5; Nucleated RBC 0 %; Platelet Count 213 10^3/uL (130-400); RBC 3.13 10^6/uL (3.93-5.22); RDW 13.4 % (11.7-14.6); RDW-SD 45.2 fL; WBC 5.71 10^3/uL (4.4-10.8)
[2020-07-16 07:49] LABS: Anion Gap 7.2 mmol/L (3-11); BUN 16 mg/dL (7-18); CO2 27.8 mmol/L (21.0-32.0); CREATININE 0.6 mg/dL (0.55-1.02); Calcium 8.7 mg/dL (8.5-10.1); Chloride 98 mmol/L (98-107); Glucose 94 mg/dL (74-106); Magnesium 1.7 mg/dL (1.8-2.4); NT-proBNP 154 pg/mL (<300); Potassium 3.2 mmol/L (3.5-5.1); Sodium 133 mmol/L (136-145)
[2020-07-16] MEDS: amLODIPine 10 MG TAB PO (08:30)
[2020-07-16] MEDS: hydroCHLOROthiazide 25 MG TAB 50 MG PO (08:30)
[2020-07-16] MEDS: Omeprazole 20 MG CAPCR PO (08:30)
--- NOTE | 2020-07-16 09:31 | W.ANESNEU ---
Epidural/Spinal Cath. Removal Date Performed: 07/16/20 Procedure Time: 09:25 Catheter Removal Type: Epidural Catheter Procedure Location: Med/Surg Patient Position: Sitting Catheter Removal Procedure: Dressing Removed, Catheter Removed without Resistance and Catheter Tip Intact Paresthesia: None Procedure Tolerated: No Complications Procedure Outcome: Successful Performed By: Erin Shea
--- NOTE | 2020-07-16 10:05 | DI.VRAD_ITS ---
PROCEDURE INFORMATION: Exam: XR Abdomen Exam date and time: 07/16/2020 12:01 AM Age: 79 years old Clinical indication: Other: Sbo, S/P laparotomy; Prior surgery; Surgery date: Post-operative (0-2 days) TECHNIQUE: Imaging protocol: XR of the abdomen. Views: 2 Views. Upright and supine views. COMPARISON: CR XR ABDOMEN FLAT UPRIGHT 07/15/2020 11:33 AM FINDINGS: Tubes, catheters and devices: 2 tubes project over lower abdomen, stable in position since yesterday. New electrode pack/pump projects over the upper right hip on the 1st image, absent from the second 2 images. Stable tubing projecting over the midline lower chest and upper abdomen. Gastrointestinal tract: Gas in normal caliber loops of large and small bowel. Intraperitoneal space: Normal. No free air. Vasculature: Vascular calcifications. Bones/joints: Degenerative arthritis in the spine with a lumbar curve, convex to Soft tissues: Abdominal surgical clips. IMPRESSION: Postoperative changes in the abdomen appear grossly unchanged from 07/15/2020. Appliances and drains appear in appropriate position. Dictated and Authenticated by: Crystal Alvarez MD. Ordering:FRANKIE Boles MD
[2020-07-16 10:48] VITALS: BP 161/75; PULSE 84; RESP 18; TEMP 36.3; O2SAT 98
--- NOTE | 2020-07-16 11:03 | PT.INTREAT ---
PT Notes Visit Reasons: S/P ANTERIOR ABDOMINAL WALL RE-CONSTRUCTION Inpatient Physical Therapy Treatment Note [facility] Date: 07/16/20 PRECAUTIONS: SUBJECTIVE: Pt reports that she is feeling much better today. OBJECTIVE: Supine-sit: I Sit-supine: Sit-stand: I Stand-sit: I GAIT Assistive DevicFWW Weight bearing:Full] Assist: SBA Distance: Approx 200ft with no seated rest. THEREX: Pt completed UE and LE strengthening ther ex as per flow sheet. ASSESSMENT: Pt tolerated today's session well. Pt was able to tolerate her ther ex and ambulation much better today with less fatigue. PLAN: Cont as per PT POC. TREATMENT CODE/TIME: 9:25-9:45 (20) TA
[2020-07-16] MEDS: ACETAMINOPHEN 1,000 MG/100 ML BTL 400 MG IVPB (11:06)
--- NOTE | 2020-07-16 11:25 | PGE_ITS ---
Date of Service Date of service: 07/16/20 Time of Service: 11:25 Assessment and Plan Assessment and plan (1) GERD (gastroesophageal reflux disease): Status: Acute (2) Hyperlipidemia: Status: Acute (3) Hypertension: Status: Acute (4) S/P hernia repair: Status: Acute Assessment and plan: pod#5 complex abdominal wall repair. multiple BM and feels better no further N/V electrolytes adjusted epidural removed d/c avldes Venofer protein supplements (5) Anemia due to blood loss, acute: Status: Acute (6) Hypokalemia due to excessive gastrointestinal loss of potassium: Status: Acute Subjective Subjective Interval history since last seen: Pt is doing well. no headaches. No CP or SOB. no productive cough. no leg pain or swelling. PT feels much better today. Tolerating po;s and had mult. BM pt has been up walking. She is tolerating clear liquids. Epidural removed and pain is controllable. Exam Resp Effort & Inspection: normal respiratory effort and able to speak in complete sentences Auscultation: clear to auscultation bilaterally Cardio Rate: regular rate Rhythm: regular rhythm GI Inspection: incision (c/d/i mild bruising ) Palpation: soft Auscultation: normal bowel sounds Other: drains- sero-sang Extrem General: no clubbing, cyanosis or edema Objective Last Vital Signs Temp 36.3 C L 07/16/20 10:48 Pulse 84 07/16/20 10:48 Resp 18 07/16/20 10:48 BP 161/75 H 07/16/20 10:48 Pulse Ox 98 07/16/20 10:48 Laboratory Results - last 24 hr 07/15/20 07/16/20 07/16/20 23:20 06:25 06:25 WBC 5.71 RBC 3.13 L Hgb 9.9 L Hct 28.7 L MCV 91.7 MCH 31.6 MCHC 34.5 RDW 13.4 Plt Count 213 MPV 9.6 Immature Gran % 1.6 Neutrophils % 65.0 Lymphocytes % 17.0 Monocytes % 13.5 Eosinophils % 2.5 Basophils % 0.4 Nucleated RBC % 0 Absolute Neutrophils 3.72 Absolute Lymphocytes 0.97 L Absolute Monocytes 0.77 Absolute Eosinophils 0.14 Absolute Basophils 0.02 Sodium 133 L Potassium 3.2 L Chloride 98 Carbon Dioxide 27.8 Anion Gap 7.2 BUN 16 Creatinine 0.6 Estimated GFR/1.73 m2 >= 60.00 Glucose 94 Calcium 8.7 Magnesium 1.7 L NT-Pro-B Natriuret Pep 154 Urine Color Yellow Urine Clarity Sl cloudy Urine pH 7.0 Ur Specific [place] 1.020 Urine Protein 30 H Urine Ketones 40 H Urine Blood Small H Urine Nitrite Positive H Urine Bilirubin Negative Urine Urobilinogen 0.2 Ur Leukocyte Esterase Small H Urine RBC 5-10 H Urine WBC 20-50 H Ur Epithelial Cells Negative Urine Crystals Moderate amorphous Urine Bacteria Many Urine Casts Negative Urine Mucus Negative Ur Culture Indicated? Yes Urine Glucose Negative
[2020-07-16] MEDS: MAGNESIUM SULFATE 1 GM/100 ML BAG IVPB (11:41)
[2020-07-16] MEDS: POTASSIUM CHLORIDE 10 MEQ/100 ML BAG 100 MEQ IVPB ×2 (12:07→14:04)
[2020-07-16 15:13] VITALS: BP 138/75; PULSE 84; RESP 18; TEMP 36.5; O2SAT 96
[2020-07-16] MEDS: IRON SUCROSE COMPLEX 200 MG in Normal Saline 100 ML 400 MG IVPB (15:14)
[2020-07-16 19:13] VITALS: BP 149/74; PULSE 86; RESP 18; TEMP 37; O2SAT 94
--- NOTE | 2020-07-16 19:25 | CMPROGNOTE_ITS ---
- If Service Date Differs Date of service: 07/16/20 Time of Service: 19:25 Care Management Progress Note S/O: Susanna was sitting up in bed when CM met with her. She was smiling and appeared much improved from yesterday. She stated that she is feeling better and that she has no pain at this time, even though her epidural was removed. Susanna informed CM that she is able to tolerate a liquid diet and that it will be advanced for dinner to full liquids. She anticipates being discharged home T or Friday but assured CM that she is no hurry. She wants to know she is really ready when she does go home. A: 79 year old female admitted to [facility] 07/11/20 for S/P Anterior Abdominal Wall R e-Construction P: Susanna will return home where her sister and brother in law will be staying with her. Anticipate MD will orders new VNA RN for WAI drain management. She will follow up with her PCP and surgical services as directed and transport home with her family. CM will continue to support Flaco and assess for discharge planning needs.
[2020-07-16] MEDS: Normal Saline Flush 10 ML SYR IVP (19:31)
[2020-07-16] MEDS: Zolpidem 10 MG TAB PO (21:31)
[2020-07-16 23:33] VITALS: BP 130/72; PULSE 81; RESP 18; TEMP 36.2; O2SAT 94
[2020-07-17 03:23] VITALS: BP 150/74; PULSE 88; RESP 17; TEMP 36.3; O2SAT 95
[2020-07-17] MEDS: Acetaminophen 500 MG TAB 1000 MG PO ×3 (05:50→21:41)
--- NOTE | 2020-07-17 07:05 | W.PM.PROGNOT ---
Date of Service Date of service: 07/17/20 Time of Service: 07:06 Assessment and Plan Assessment and plan (1) GERD (gastroesophageal reflux disease): Status: Acute Qualifiers: Esophagitis presence: esophagitis presence not specified Qualified Code(s): K21.9 - Gastro-esophageal reflux disease without esophagitis (2) Hyperlipidemia: Status: Acute (3) Hypertension: Status: Acute (4) S/P hernia repair: Status: Acute Assessment and plan: pod#6 complex abdominal wall repair. multiple BM and feels better no further N/V electrolytes normal pain well controlled continue with protein supplements Hopefully Home tomorrow (5) Anemia due to blood loss, acute: Status: Acute (6) Hypokalemia due to excessive gastrointestinal loss of potassium: Status: Acute Subjective Subjective Interval history since last seen: Mrs Cunningham is POD #6 s/p large ventral hernia repair with component separation. She is doing well. She has had a BM and is eating. Pain is well controlled Exam Const General: cooperative and comfortable Orientation: alert and oriented x3 HENMT Head: normocephalic and atraumatic Resp Effort & Inspection: normal respiratory effort Auscultation: clear to auscultation bilaterally Cardio Rate: regular rate Rhythm: regular rhythm GI Inspection: incision (c/d/i. Ecchymosis noted along incision) Palpation: soft Other: WAI drains with serosanguinous discharge Objective Last Vital Signs Temp 97.3 F L 07/17/20 03:23 Pulse 88 07/17/20 03:23 Resp 17 07/17/20 03:23 BP 150/74 H 07/17/20 03:23 Pulse Ox 95 07/17/20 03:23 Laboratory Results - last 24 hr 07/16/20 07/16/20 06:25 06:25 WBC 5.71 RBC 3.13 L Hgb 9.9 L Hct 28.7 L MCV 91.7 MCH 31.6 MCHC 34.5 RDW 13.4 Plt Count 213 MPV 9.6 Immature Gran % 1.6 Neutrophils % 65.0 Lymphocytes % 17.0 Monocytes % 13.5 Eosinophils % 2.5 Basophils % 0.4 Nucleated RBC % 0 Absolute Neutrophils 3.72 Absolute Lymphocytes 0.97 L Absolute Monocytes 0.77 Absolute Eosinophils 0.14 Absolute Basophils 0.02 Sodium 133 L Potassium 3.2 L Chloride 98 Carbon Dioxide 27.8 Anion Gap 7.2 BUN 16 Creatinine 0.6 Estimated GFR/1.73 m2 >= 60.00 Glucose 94 Calcium 8.7 Magnesium 1.7 L NT-Pro-B Natriuret Pep 154
[2020-07-17 07:19] VITALS: BP 122/72; PULSE 84; RESP 18; TEMP 37.2; O2SAT 95
[2020-07-17 07:38] LABS: Abs Immature Grans 0.11 10^3/uL (0.0-0.06); Absolute Basophil Count 0.06 10^3/uL (0.0-0.2); Absolute Eosinophil Count 0.26 10^3/uL (0.0-0.7); Absolute Lymphocyte Count 0.73 10^3/uL (1.2-3.4); Absolute Monocyte Count 0.61 10^3/uL (0.1-0.8); Absolute Neutrophil Count 3.83 10^3/uL (1.2-6.7); Basophils % 1.1; Eosinophils % 4.6; HCT 30.6 % (36.0-46.0); HGB 10.6 g/dL (11.2-15.7); MCHC 34.6 % (32.0-36.0); MCV 92.4 fL (80-95); MPV 9.1 fL (8.0-11.0); Monocytes % 10.9; Neutrophils % 68.4; Nucleated RBC 0 %; Platelet Count 229 10^3/uL (130-400); RBC 3.31 10^6/uL (3.93-5.22); RDW 13.7 % (11.7-14.6); RDW-SD 46.3 fL
[2020-07-17 07:46] LABS: Anion Gap 8.3 mmol/L (3-11); BUN 14 mg/dL (7-18); CO2 28.7 mmol/L (21.0-32.0); CREATININE 0.7 mg/dL (0.55-1.02); Chloride 97 mmol/L (98-107); Glucose 128 mg/dL (74-106); Magnesium 1.6 mg/dL (1.8-2.4); Sodium 134 mmol/L (136-145)
[2020-07-17] MEDS: Omeprazole 20 MG CAPCR PO (08:27)
[2020-07-17] MEDS: hydroCHLOROthiazide 25 MG TAB 50 MG PO (08:27)
[2020-07-17] MEDS: amLODIPine 10 MG TAB PO (08:27)
--- NOTE | 2020-07-17 10:05 | W.NUTRFU ---
Date of service: 07/17/20 Time of Service: 10:05 Nutritional Follow up NOTE: 79 year old female S/P Anterior Abdominal Wall Re-Construction with BMI refecting obesity. Tolerating post op diet and meeting 100% nutrient and fluid needs. Not considered at nutritional risk. Will continue to follow. Time Spent in Nutritional Counseling and Treatment: 0
[2020-07-17 11:30] VITALS: BP 124/74; PULSE 80; RESP 18; TEMP 36.7; O2SAT 96
[2020-07-17] MEDS: Enoxaparin 40 MG/0.4 ML SYR SC (11:30)
--- NOTE | 2020-07-17 12:44 | PT.INTREAT ---
Date of service: 07/17/20 Time of Service: 10:15 PT Notes Visit Reasons: S/P ANTERIOR ABDOMINAL WALL RE-CONSTRUCTION Inpatient Physical Therapy Treatment Note [facility] Date: 07/17/2020 PRECAUTIONS: Activity as tolerated SUBJECTIVE: Susanna is pleasant and agreeable to participating in PT. She reports that she is feeling much better today, and hopes to go home tomorrow. She reports that she has been walking with nursing in the hallways several times each day. OBJECTIVE: PAIN: No c/o pain BED MOBILITY/TRANSFERS Supine-sit: I with HOB flat Sit-supine: I with HOB flat Sit-stand: I Stand-sit: I Bed-Chair: I Chair-bed: I GAIT Assistive Device: FWW Weight bearing: Full Assist: S Distance: 600' in both a.m. and p.m. Deviation: Good pacing, gait unremarkable; min SOB in p.m. THEREX: Patient was instructed in a LE strengthening and stabilization program, completed in both supine and standing positions, as per flow sheet. TOILETING: Patient toileted independently ASSESSMENT: Patient demonstrates independence with all bed mobility, transfers, and short-distance ambulation, at this time. She has been cleared to be independent with transfers and in-room ambulation with FWW at this time. PLAN: Continue with global strengthening and continue progressing gait distance with FWW for im[proved activity tolerance. TREATMENT CODE/TIME: Session 1: 30 minutes; 56020, [id number] (10:15) Session 2: 15 minutes; [id number] (13:50)
--- NOTE | 2020-07-17 15:36 | PDOC.CMPRO ---
Care Management Progress Note S/O: Susanna was sitting up in bed when CM met with her. She was pleasant in interaction and fully engaged; discussing her family and loss of her and daughter within the last five years. She reports anticipating she will discharge home tomorrow but shares uncertainty whether the drains will be removed prior to discharge; awaiting MD determination. She remains agreeable to VNA support upon discharge; [facility] aware of pending orders. She reports having a walk in shower at home, and doing well with PT for stair training as she has two stairs in to enter the home. FWW provided through [facility]. CM continues to follow. A: 79 year old female admitted to [facility] 07/11/20 for S/P Anterior Abdominal Wall Re-Construction P: Susanna will return home where her sister and brother in law will be staying with her. Anticipate MD will orders new VNA RN for WAI drain management. She will follow up with her PCP and surgical services as directed and transport home with her family. CM will continue to support Flaco and assess for discharge planning needs.
[2020-07-17 15:41] VITALS: BP 129/70; PULSE 89; RESP 18; TEMP 36.8; O2SAT 96
[2020-07-17] MEDS: Zolpidem 10 MG TAB PO (21:40)
[2020-07-17 21:45] VITALS: BP 155/80; PULSE 81; RESP 16; TEMP 36.4; O2SAT 96
[2020-07-18 03:49] VITALS: BP 156/80; PULSE 89; RESP 16; TEMP 36.1; O2SAT 96
[2020-07-18] MEDS: Acetaminophen 500 MG TAB 1000 MG PO ×2 (05:56→14:38)
[2020-07-18 07:20] VITALS: BP 132/79; PULSE 84; RESP 18; TEMP 37.2; O2SAT 96
[2020-07-18] MEDS: Omeprazole 20 MG CAPCR PO (07:41)
[2020-07-18] MEDS: amLODIPine 10 MG TAB PO (08:32)
[2020-07-18] MEDS: Sennosides/Docusate Sodium TAB 1 TAB PO (08:32)
[2020-07-18] MEDS: Bisacodyl 5 MG TABEC PO (08:33)
[2020-07-18] MEDS: hydroCHLOROthiazide 25 MG TAB 50 MG PO (08:33)
--- NOTE | 2020-07-18 08:44 | PT.INTREAT ---
Date of service: 07/18/20 Time of Service: 07:50 PT Notes Visit Reasons: S/P ANTERIOR ABDOMINAL WALL RE-CONSTRUCTION Inpatient Physical Therapy Treatment Note [facility] Date: 07/18/2020 PRECAUTIONS: Activity as tolerated SUBJECTIVE: Susanna is pleasant and agreeable to participating in PT. She reports that she is feeling good today, although she wishes that she did not have to go home with the WAI drains. She is hopeful that she will be discharged today. OBJECTIVE: PAIN: No c/o pain BED MOBILITY/TRANSFERS Supine-sit: I with HOB flat Sit-supine: I with HOB flat Sit-stand: I Stand-sit: I Bed-Chair: I Chair-bed: I GAIT Assistive Device: FWW Weight bearing: Full Assist: I Distance: 600' Deviation: Good pacing, gait unremarkable THEREX: Patient was instructed in a LE strengthening program, completed in a standing position, as per flow sheet. STAIRS: Up/down 3x4 and 2x6 using B rails and a step-to pattern independently. ASSESSMENT: Patient demonstrates independence with all bed mobility, transfers, and ambulation, at this time. She has been cleared to be independent with transfers and ambulation with FWW at this time. Recommend that patient continue using FWW with ambulation for comfort. PLAN: Discharge patient from PT as patient is at independent level of function. Patient to continue ambulating in the hallway with FWW x4/day. TREATMENT CODE/TIME: 15 minutes; 19858 (07:50)
[2020-07-18] MEDS: Ciprofloxacin 500 MG TAB PO (09:23)
[2020-07-18 11:35] VITALS: BP 141/76; PULSE 81; RESP 18; TEMP 36.8; O2SAT 98
[2020-07-18] MEDS: Enoxaparin 40 MG/0.4 ML SYR SC (11:38)
--- NOTE | 2020-07-18 12:23 | DSE_ITS ---
Date of service: 07/18/20 Time of Service: 12:24 DS: Diagnosis Discharge Diagnosis (1) GERD (gastroesophageal reflux disease): Status: Acute (2) Hyperlipidemia: Status: Acute (3) Hypertension: Status: Acute (4) S/P hernia repair: Status: Acute (5) Anemia due to blood loss, acute: Status: Acute (6) Hypokalemia due to excessive gastrointestinal loss of potassium: Status: Acute (7) UTI (urinary tract infection): Status: Acute Discharge Plan Disposition Patient Disposition: HOME W/HOME HEALTH SERVICE Condition: Good Discharge Details Reason For Visit: S/P ANTERIOR ABDOMINAL WALL RE-CONSTRUCTION Admit Date/Time: 07/11/20 07:23 Admit Provider: Elvi Maria Attending Provider: Elvi Maria Primary Care Provider: [facility] Hospital Course: Mrs Cunningham was admitted on 07/11 after undergoing a large ventral hernia repair with a component separation. She did well for the first few days. On POD# 4 she developed N/V. She was noted to be constipated. She was given some laxatives and once she had some BM's the N/.V stopped. Her pain was initially controlled with an epidural. The epidural was removed after 3 days. She is doing well with po pain medications at this time. Her valdes was removed once the epidural was out. On tuesday 07/18 she was doing well. Eating a regular diet. her pain was controlled. She was noted to have a UTI and was started on Cipro 500 mg BID. She will be discharged with a Rx for 5 days of Cipro. She will be discharged with her WAI drains in place. Home health will be ordered to help with WAI drain and incision care. Home Meds and New Rx's Prescriptions: New sennosides-docusate sodium [Colace 2-In-1] 8.6-50 mg Tablet 1 tab PO BID Qty: 30 RF: 0 ciprofloxacin HCl 500 mg Tablet 500 mg PO BID Qty: 9 RF: 0 Continued hydrochlorothiazide 25 mg tablet 25 mg PO DAILY RF: 0 multivitamin [Multi-Day] 1 EACH tablet 1 ea PO DAILY RF: 0 ascorbic acid (vitamin C) [Vitamin C] 500 MG tablet 500 mg PO DAILY RF: 0 tumeric capsule 1 cap PO DAILY RF: 0 omeprazole 20 mg capsule,delayed release(DR/EC) 20 mg PO DAILY RF: 0 meloxicam 7.5 mg Tablet 7.5 mg PO BID RF: 0 zolpidem [Ambien] 10 mg Tablet 10 mg PO HS PRN PRNRF: 0 ketoconazole 2 % Cream 1 applic TOPICAL DAILY RF: 0 amlodipine 10 mg tablet 10 mg PO DAILY RF: 0 Discontinued Benefiber Clear SF (dextrin) 3 gram/3.5 gram powder in packet 1.5 g PO BID RF: 0 Discharge Instructions Additional Instructions: Activity at Home after surgery: 1. Make sure you walk outside at least 4 times per day 2. You should be able to climb a flight of stairs 3. No driving while in pain or taking pain medications 4. No strenuous activity or heavy lifting for 4 weeks (open surgery) Diet, Nutrition, & wound healin. Avoid alcohol until after you are recovered from your surgery 2. Make sure to eat plenty of lean protein (meat, fish, eggs, cottage cheese, beans) 3. Eat a variety of fruits and vegetables. Eat plenty of high fiber foods to avoid constipation. 4. Drink plenty of liquids to stay hydrated and avoid constipation Pain Medications: 1. Tylenol 650mg every 6 hours as needed and Ibuprofen 600 mg every 6 hours as needed. You may alternate between the 2 medications every 3 hours 2. If a narcotic has been prescribed take as directed only for breakthrough pain For Constipation: 1. Take Milk of Magnesia or MiraLax as needed for constipation Other: 1. You may shower daily. Do not scrub the incisions 2. Do not soak the incisions for 1 week 3. You may alternate ice and heat as needed for pain and swelling Wound Care: 1. Keep the incisions clean and dry Other Services that may have been ordered: x Home Health- to help with dressing changes Please call our office if you develop: 1. Fevers >101.5 2. Nausea or Vomiting 3. Worsening pain 4. Redness and thick discharge from the wounds If after hours please call the Hospital at and ask to speak to the on-call surgeon Stand Alone Forms: Nursing Discharge Form Referrals: Wanda Mckeon MD [ [facility] STAFF PHYSICIAN] - 07/25/20 9:30 am Activity:: see above Equipment/Supplies:: No Equipment Needed Diet:: As Tolerated Discharge Orders Discharge Orders: Discharge Order (Routine); Ordered 07/18/20 Ordered By: Wanda Mckeon DS: Summary Time Spent with Patient providing and/or coordinating discharge services: Greater than 30 minutes Status at Discharge Functional status at discharge: independent ambulation Overall status at discharge: patient is progressing back to baseline Mental Status: mental status grossly normal Speech and Movement: speech and movement normal Mood: congruent mood Affect: normal affect Exam Const General: cooperative, comfortable and no acute distress Orientation: alert and oriented x3 HENMT Head: normocephalic and atraumatic Resp Effort & Inspection: normal respiratory effort Auscultation: clear to auscultation bilaterally Cardio Rate: regular rate Rhythm: regular rhythm GI Palpation: soft and tender (appropriatly tender along the incision) Auscultation: normal bowel sounds Psych Mental Status: mental status grossly normal Speech and Movement: speech and movement normal Mood: congruent mood Affect: normal affect DS: Data Vitals/I&O Vitals and I&O: Vital Signs Temperature 99.0 F 07/18/20 07:20 Temperature Source Temporal Artery Scan 07/18/20 07:20 Pulse 84 07/18/20 07:20 Pulse Rhythm Regular 07/18/20 07:44 Respiratory Rate 18 07/18/20 07:20 Respiratory Effort Non-Labored 07/18/20 07:44 Respiratory Depth Deep 07/18/20 07:44 Respiratory Pattern Normal 07/18/20 07:44 Blood Pressure 132/79 07/18/20 07:20 Pulse Oximetry 96 07/18/20 07:20 Respiratory End-tidal CO2 30 07/11/20 15:30 Oxygen Delivery Method Room Air 07/18/20 07:50 Oxygen Flow Rate 0 07/18/20 07:50 Pain Level 0 07/18/20 07:20 Comment 07/16/20 07:05 Intake & Output 07/17/20 07/18/20 07/18/20 23:59 11:59 23:59 Intake Total 430 / 680 740 / 740 Output Total 913 / 968 950 / 950 Balance -483 / -288 -210 / -210 Intake: IV Oral 420 / 670 740 / 740 Output: Drainage 38 / 93 50 / 50 Left Lower Abdomen 20 50 30 / 30 Right Lower Abdomen Urine 875 / 875 900 / 900 Other: Urine Color Yellow Yellow Urine Appearance Clear Clear Urine Odor Normal Normal Emesis Description None Voiding Methods Toilet Toilet [facility] Medical History Abnormal CT of spine Arthritis of left shoulder region Degenerative joint disease Depression Diverticulitis of jejunum Diverticulosis GERD (gastroesophageal reflux disease) Hernia Hyperlipemia Hypertension Insomnia Mitral valve insufficiency Perforation of small intestine due to diverticulitis Surgical History bunionectomy gangilion cyst History of resection of small bowel (07/14/18) Dr Elvi Maria, [facility], secondary to diverticulitis with perforation. History of ventral hernia repair (~07/11/20) Candace abdominal wall reconstruction/Golden Stoppa hernia repair Hx of shoulder replacement L Ligation of fallopian tube removal of ovary Replacement of total knee joint 2002, 2004 Family History Mother Personal history of malignant neoplasm lung Father Personal history of malignant neoplasm stomach Social History Smoking/Tobacco Use Status: Never Smoking risk assessment performed?: Yes Alcohol Intake: current Alcohol Intake frequency: a few times a month Drug use: Never Substance use type: does not use Current gender identity: female Do you feel safe at home: Yes Additional Social history: live alone
--- NOTE | 2020-07-18 13:00 | PDOC.HHF2F ---
Home Health Certification Home Health Certification: 1. Encounter Date and Reason I certify that Susanna Cunningham was seen by Wanda Mckeon MD on 07/18/20 and that I had a [id number] encounter with this patient that meets the physician face to face encounter requirements. 2. Clinical Findings Supporting Skilled Need and Homebound Status I certify that home health services are medically necessary, include either intermittent mcc and/or physical/speech therapy, and that this patient is homebound in that absences from the home require considerable and taxing effort and are infrequent or of short duration, or are attributable to the need to receive medical care. [X] (a) Attached documentation from encounter provides clinical findings supporting skilled need and homebound status (including what assistance patient requires to leave the home). The encounter with the patient was in whole, or in part, for the following medical condition, which is the primary reason for home health care: S/P ANTERIOR ABDOMINAL WALL RE-CONSTRUCTION Senior Care: Patient has a large midline incision as well as [address] Patient will need assistance with the drains. Physical Therapy: Speech Therapy: Homebound: Patient is homebound due to the drains 3. Certification and Authentication I certify that I composed the above information based on my clinical judgement relating to this patient's medical condition and, if applicable, clinical findings communicated to me by the NPP or inpatient physician who performed the Home Health Referral. All further orders will be obtained through Dr. Maria (Community Based Physician - PCP)
--- NOTE | 2020-07-18 13:14 | INDS_ITS ---
Date of service: 07/18/20 Time of Service: 13:14 PT Notes Visit Reasons: S/P ANTERIOR ABDOMINAL WALL RE-CONSTRUCTION Physical Therapy Inpatient Discharge Summary Date: 07/18/2020 Dates of service: 07/12/2020 through 07/18/2020 This is a clinical summary of care provided on the duration of dates listed above. No charge was made in the completion of this documentation. Referring Doctor: Elvi Maria MD PT Orders: PT CONSULT: Start in a.m. 07/12.? S/P extensive abdominal wall wall hernia repair/+epidural Precautions: Fall. Standard. Activity as tolerated. Patient Profile/Admitting Diagnosis: Flaco is a 79-year-old female who presented to the ED on 06/03/2020 with chief complaint of right lower abdominal pain, distention, and bloating.? Patient is diagnosed with a ventral hernia and is status post abdominal wall reconstruction/Golden?Stoppa anterior component separation with mesh, mid cervical kyphosis, with disc space narrowing from C4- C5, C5-C6, and C6?C7 and anterolisthesis of C4 on C5 with hypertrophic changes of the vertebral endplate C4-C5 and C5-C6, insomnia, hypertension, mitral insufficiency, hyperlipidemia and GERD. PMHX: Medical History? Abnormal CT of spine Arthritis of left shoulder region Degenerative joint disease Depression Diverticulitis of jejunum Diverticulosis GERD (gastroesophageal reflux disease) Hernia Hyperlipemia Hypertension Insomnia Mitral valve insufficiency Perforation of small intestine due to diverticulitis Surgical History? bunionectomy gangilion cyst History of resection of small bowel (07/14/18) Dr Elvi Maria, [facility], secondary to diverticulitis with perforation. Hx of shoulder replacement L Ligation of fallopian tube removal of ovary Replacement of total knee joint 2002, 2004 Social History/Home Situation: Lives alone in a private home with 2 steps to enter with a rail.? Reports that sister and [id number] will be are both here at her house and will be staying until October to help her recover from the surgery.? She also has a daughter who will be supporting her as needed.? She is independent with all aspects of ADLs prior to surgery.? Uses a single-point cane for all outdoor ambulation.? States that she only has 1 fall in the past 12 months and this fall happened the day before she got admitted to the hospital. Equipment Owned/DME: None Subjective: NT. See most recent [employer] notes. Objective: General Observation: NT. See most recent [employer] notes. Mental Status: NT. See most recent [employer] notes. Pain: NT. See most recent [employer] notes. Vital Signs: NT. See most recent [employer] notes. ROM: Right Upper Extremity: ? Shoulder Flexion lacks the last 20 degrees. Shoulder abduction lacks the last 2030 degrees. Shoulder ER/IR WFL. Elbow flexion WFL. Forearm pronation/supination WFL. Wrist flexion WFL. Opening and closing of hand WFL. Left Upper Extremity:? Shoulder Flexion lacks the last 20 degrees. Shoulder abduction lacks the last 2030 degrees. Shoulder ER/IR WFL. Elbow flexion WFL. Forearm pronation/supination WFL. Wrist flexion WFL. Opening and closing of hand WFL. Right Lower Extremity: Hip flexion WFL. Hip abduction WFL. Hip ER/IR WFL. Knee flexion WFL. Knee extension. Ankle dorsiflexion/eversion WFL. Ankle plantarfle xion/inversion WFL. Left Lower Extremity: Hip flexion WFL. Hip abduction WFL. Hip ER/IR WFL. Knee flexion WFL. Knee extension. Ankle dorsiflexion WFL. Ankle plantarflexion WFL. Strength: Right Upper Extremity: Shoulder flexors 3-/5. Shoulder abductors 3-/5. Shoulder ER 4-/5/ Shoulder IR 4-/5. Forearm pronators 4-/5. Forearm supinators 4-/5. Elbow flexors 4-/5. Elbow extensors 4-/5. Finish Photographer strong. Left Upper Extremity: Shoulder flexors 3-/5. Shoulder abductors 3-/5. Shoulder ER 4-/5/ Shoulder IR 4-/5. Forearm pronators 4-/5. Forearm supinators 4-/5. Elbow flexors 4-/5. Elbow extensors 4-/5. Finish Photographer strong. Right Lower Extremity: Hip flexors 4-/5. Hip abductors 4-/5. Hip external rotators 4-/5. Hip internal rotators 4-/5. Knee flexors 4/5. Knee extensors 4- /5. Ankle dorsiflexors/evertors 4-/5. Ankle plantarflexors/invertors 4-/5. Left Lower Extremity: Hip flexors 4-/5. Hip abductors 4-/5. Hip external rotators 4-/5. Hip internal rotators 4-/5. Knee flexors 4/5. Knee extensors 4- /5. Ankle dorsiflexors/evertors 4-/5. Ankle plantarflexors/invertors 4-/5. Bed Mobility/Transfers: Rolling independent Supine to sit independent Sit to supine independent Sit to stand independent Stand to sit independent Bed to chair independent Chair to bed independent Gait: Up to 600 feet of level surface ambulation using front wheeled walker with full weightbearing independently with good pacing and no gait deviation. Balance: Static Sitting: Normal Dynamic Sitting: Normal Static Standing: Normal Dynamic Standing: Good Assessment: Flaco demonstrates improved functional mobility status resulting from this episode of care as evidenced by current mobility level above and goal status below. Patient presents with clinical signs and symptoms consistent with current/admitting diagnoses that have resulted to mobility limitations, gait instability, generalized weakness, and impairment of motor control as demonstrated by the following impairment level findings: 1.? Decreased strength to B LE major muscle groups 2.? Impaired standing balance Impairments are contributing to the following functional limitations: 1.? Inability to safely ambulate without assistive device 2.? Increase completion time for mobility ADL performance 3.? Increased fall risk Goals: Goals X1 week 1. Supine-Sit independent MET 2. Sit-Supine independent MET 3. Sit-Stand independent MET 4. Stand-Sit independent MET 5. Bed-Chair independent MET 6. Chair-Bed independent MET 7. Independent gait on level surface with use of front wheeled walker for at least 100 feet without report of pain nor dyspnea MET 8. Independent stair negotiation while holding onto 1 rail for at least 3 steps without report of pain nor dyspnea 9. Independent with home exercise program MET 10. Good static and dynamic standing balance/tolerance MET DISCHARGE RECOMMENDATIONS: Patient will benefit from home health PT services in order to progress mobility level using least restrictive assistive ambulatory device, assess home safety, identify additional equipment needs, and establish a functional maintenance program that will increase ability of patient to remain at home. TREATMENT CODE/TIME: AK Thank you for the opportunity to participate in the care of this patient. Samantha Gant PT, DPT, CLT [facility], [place]
--- NOTE | 2020-07-18 17:28 | CMDISCH_ITS ---
LACE Index Scoring Tool - Questions: Length of Stay (in days): 7 - 13 Acuity (Admit via E.D.?): Yes E.D. Visits: 1 - Answers: Total Score: 9 Risk of Readmission: Low Risk Care Management Discharge Reason for Hospitalization: S/P Anterior Abdominal Wall Re-Construction Discharge Plan: Susanna will return home where her sister and brother in law will be staying with her. She will have new MD orders LAURYN RN for WAI drain management- notified [facility]. She will follow up with her PCP and surgical services as directed and transport home with her family. Patient/Family Education Needs: Review discharge instructions, discuss Ask Me Three. Services Needed at Discharge: Home Health Care Services (RN-WAI drain management )
== END 2020-07-18 15:27 | disposition home health service (06) | DRG 354 ==
LOC: PDS 07:24 → MS 14:32
PROVIDERS: Admitting Provider Surgery; PCP Nurse Practitioner Family; Visit Provider Surgery
PROC: 0WUF0JZ Supplement Abdominal Wall with Synthetic Substitute, Open Approach (ICD-10-PCS; CPT 49560; principal; 2020-07-11 09:00)
DX: K43.2 Incisional hernia without obstruction or gangrene (principal); K56.7 Ileus, unspecified; D62 Acute posthemorrhagic anemia; N39.0 Urinary tract infection, site not specified; M85.89 Other specified disorders of bone density and structure, multiple sites; I10 Essential (primary) hypertension; G47.00 Insomnia, unspecified; E78.5 Hyperlipidemia, unspecified; K21.9 Gastro-esophageal reflux disease without esophagitis; M40.292 Other kyphosis, cervical region; Z96.612 Presence of left artificial shoulder joint; Z96.611 Presence of right artificial shoulder joint; Z96.653 Presence of artificial knee joint, bilateral; F32.9 Major depressive disorder, single episode, unspecified; I34.0 Nonrheumatic mitral (valve) insufficiency; M47.812 Spondylosis without myelopathy or radiculopathy, cervical region; E87.6 Hypokalemia
CPT/HCPCS: 49560; 49568; 36415; 80048; 85027; 87077; 97110; 97162; 97530; J1650; 74019; 81003; 81015; 83735; 83880; 85014; 85018; 85025; 87086; 87186; C1781; J0131; J0690; J1100; J1756; J2001; J2250; J2405; J2704; J3475; J3480

== ENCOUNTER → 2020-07-25 09:26 | Outpatient (BNVA) | payer MEDICARE, SELFPAY | PROVIDERS: PCP Nurse Practitioner Family; Referring Provider Nurse Practitioner Family; Visit Provider Surgery | DX: Z48.815 Encounter for surgical aftercare following surgery on the digestive system (principal) ==

== ENCOUNTER → 2020-08-07 09:21 | Outpatient (BNVA) | payer MEDICARE, SELFPAY | PROVIDERS: PCP Nurse Practitioner Family; Referring Provider Nurse Practitioner Family; Visit Provider Surgery | DX: Z48.815 Encounter for surgical aftercare following surgery on the digestive system (principal) ==

== ENCOUNTER → 2020-08-28 10:54 | Outpatient (BNVA) | payer MEDICARE, SELFPAY | PROVIDERS: PCP Nurse Practitioner Family; Referring Provider Nurse Practitioner Family; Visit Provider Surgery | DX: Z48.815 Encounter for surgical aftercare following surgery on the digestive system (principal); Z87.19 Personal history of other diseases of the digestive system ==

== ENCOUNTER 2020-09-25 11:52 | Outpatient (REF) | payer MEDICARE, SELFPAY ==
[2020-09-25 13:34] LABS: HCT 39.8 % (36.0-46.0); HGB 13.4 g/dL (11.2-15.7); MCH 31.1 pg (27.0-33.0); MCHC 33.7 % (32.0-36.0); MCV 92.3 fL (80-95); MPV 10.3 fL (8.0-11.0); Platelet Count 233 10^3/uL (130-400); RBC 4.31 10^6/uL (3.93-5.22); RDW 13.5 % (11.7-14.6); RDW-SD 46.3 fL; WBC 4.56 10^3/uL (4.4-10.8)
[2020-09-25 13:49] LABS: Anion Gap 5.9 mmol/L (3-11); BUN 21 mg/dL (7-18); CO2 28.1 mmol/L (21.0-32.0); CREATININE 0.8 mg/dL (0.55-1.02); Calcium 9.5 mg/dL (8.5-10.1); Chloride 104 mmol/L (98-107); Glucose 118 mg/dL (74-106); HDL Cholesterol 53 mg/dL (40-60); LDL CHOLESTEROL 155 mg/dL (<100); Magnesium 1.8 mg/dL (1.8-2.4); Potassium 3.3 mmol/L (3.5-5.1); Sodium 138 mmol/L (136-145)
[2020-09-26 11:55] LABS: Uric Acid 5.7 mg/dL (2.6-6.0)
== END 2020-09-25 11:53 | disposition home or self-care (01) ==
LOC: NCHCN 11:52
PROVIDERS: PCP Nurse Practitioner Family; Visit Provider Nurse Practitioner Family
DX: I10 Essential (primary) hypertension (principal); E78.5 Hyperlipidemia, unspecified; R79.9 Abnormal finding of blood chemistry, unspecified
CPT/HCPCS: 80048; 83721; 85027; 83718; 83735; 84550

== ENCOUNTER 2020-09-25 16:25 | Outpatient (CLI) | payer MEDICARE, SELFPAY ==
--- NOTE | 2020-09-25 10:39 | DI.RAD_ITS ---
Exam(s) XR FOOT RT COMPLETE EXAM: XR FOOT RT COMPLETE CLINICAL HISTORY: RT FOOT PAIN M79.671, R/O FX, BRUISING OVER ANTERIOR RT FOOT, INFERIOR TO. TECHNIQUE: 2D digital imaging was performed. COMPARISON: No exams were available for comparison FINDINGS: There is no evidence of acute fracture or diastasis of the Lisfranc joint. However, there are degene rative changes at all the articulations between the metatarsal bases and the cuneiform-cuboid joints of the midfoot. There is subluxation of metatarsophalangeal joints 2nd and 3rd toes. There is flattening of the head of the 2nd metatarsal noted. Fourth metatarsophalangeal joint appears unremarkable as is the interp halangeal joint. IMPRESSION: Metatarsophalangeal joint subluxations of the 2nd and 3rd toes Degenerative changes at the midfoot joints. There is no diastasis of the Lisfranc joint. DATA REPOSITORY: RADIATION DOSE DELIVERED:
== END 2020-09-25 16:45 ==
PROVIDERS: PCP Nurse Practitioner Family; Visit Provider Nurse Practitioner Family
DX: S93.144A Subluxation of metatarsophalangeal joint of right lesser toe(s), initial encounter (principal); M19.071 Primary osteoarthritis, right ankle and foot; X58.XXXA Exposure to other specified factors, initial encounter; Y99.8 Other external cause status
CPT/HCPCS: 73630

== ENCOUNTER 2021-03-07 08:14 | Outpatient (REF) | payer MEDICARE, SELFPAY ==
[2021-03-07 12:47] LABS: Anion Gap 9.1 mmol/L (3-11); BUN 23 mg/dL (7-18); CO2 28.9 mmol/L (21.0-32.0); CREATININE 0.8 mg/dL (0.55-1.02); Calcium 9.6 mg/dL (8.5-10.1); Chloride 101 mmol/L (98-107); Glucose 106 mg/dL (74-106); Potassium 4.1 mmol/L (3.5-5.1); Sodium 139 mmol/L (136-145)
== END 2021-03-07 08:15 | disposition home or self-care (01) ==
LOC: NCHCN 08:14
PROVIDERS: PCP Nurse Practitioner Family; Visit Provider Nurse Practitioner Family
DX: I10 Essential (primary) hypertension (principal)
CPT/HCPCS: 80048

== ENCOUNTER 2021-04-10 10:53 | Outpatient (REF) | payer MEDICARE, SELFPAY ==
[2021-04-10 12:33] LABS: TSH 1.79 uIU/mL (0.36-3.74)
[2021-04-12 00:22] LABS: Vitamin D 25 Total 45.8 ng/mL (30-100)
== END 2021-04-10 10:54 | disposition home or self-care (01) ==
LOC: NCHCN 10:53
PROVIDERS: PCP Nurse Practitioner Family; Visit Provider Nurse Practitioner Family
DX: Z00.00 Encounter for general adult medical examination without abnormal findings (principal); I10 Essential (primary) hypertension; E78.5 Hyperlipidemia, unspecified; M85.89 Other specified disorders of bone density and structure, multiple sites
CPT/HCPCS: 82306; 84443

== ENCOUNTER 2021-09-05 17:12 | Outpatient (REF) | payer MEDICARE, SELFPAY ==
[2021-09-05 16:22] LABS: Anion Gap 8.4 mmol/L (3-11); BUN 20 mg/dL (7-18); CO2 30.6 mmol/L (21.0-32.0); CREATININE 0.7 mg/dL (0.55-1.02); Calcium 9.5 mg/dL (8.5-10.1); Calculated LDL 163 mg/dL (<100); Chloride 98 mmol/L (98-107); Cholesterol 239 mg/dL (<200); Glucose 115 mg/dL (74-106); HDL Cholesterol 54 mg/dL (40-60); Potassium 3.2 mmol/L (3.5-5.1); Sodium 137 mmol/L (136-145); Triglyceride 111 mg/dL (<150)
== END 2021-09-05 17:13 | disposition home or self-care (01) ==
LOC: NCHCN 17:12
PROVIDERS: PCP Nurse Practitioner Family; Visit Provider Nurse Practitioner Family
DX: E78.5 Hyperlipidemia, unspecified (principal); I10 Essential (primary) hypertension
CPT/HCPCS: 80048; 80061

== ENCOUNTER → 2021-10-10 01:15 | Outpatient (CLI) | payer MEDICARE, SELFPAY ==
--- NOTE | 2021-10-10 | DI.MAMMO_ITS ---
Exam(s) MAMMO DIAGNOSTIC BI EXAM: MAMMO DIAGNOSTIC BI CLINICAL HISTORY: LT BREAST NODULE PRESENT ON 04/2020 TECHNIQUE: Mammograms were interpreted according to the usual protocol including computer analysis w [employer] CAD system, tomosynthesis and C-view imaging. COMPARISON: FINDINGS: Breasts are of moderate density with fairly symmetrical distribution of fibroglandular tissue. No do minant mass or clumped microcalcification is identified in either breast. Comparison with previous e xaminations including April 2020 shows markedly decreased prominence of the previously described n odule of the upper outer quadrant of the left breast. No significant mass identified at this time. No suspicious microcalcification seen. IMPRESSION: No specific evidence of malignancy at this time. Routine screening examinations are suggested at yea rly intervals in this age group according to ACS ACR guidelines. BI-RADS Category 1 - Negative Breast Density - Category B - Scattered areas of fibroglandular density
== END ==
PROVIDERS: PCP Nurse Practitioner Family; Visit Provider Nurse Practitioner Family
DX: R92.8 Other abnormal and inconclusive findings on diagnostic imaging of breast (principal)
CPT/HCPCS: 77062; 77066; G0279

== ENCOUNTER 2022-03-05 08:56 | Outpatient (REF) | payer MEDICARE, SELFPAY ==
--- OUTSIDE RECORDS SUMMARY | 2022-03-05 08:58 | XMS_ITS | Continuity of Care Document ---
:1940 Author Organization [facility] Ambulatory Clinics Address [address] [place] [address] Care Team Providers Name Role Phone GRACIELA MERLOS Primary Care Physician Encounter [facility] NBR [id number] Date(s): 02/05/22 - 02/05/22 [facility] Ambulatory Clinics [address], [place] [address] Encounter Diagnosis Status post total shoulder arthroplasty (Discharge Diagnosis) - 02/04/22 Discharge Disposition: Home or Self Care Attending Physician: Petra Leger [employer]ULTANT, Allergies, Adverse Reactions, Alerts Substance Reaction Severity Status codeine Vomit Unknown Active sulfamethoxazole-trimethoprim Unknown Unknown Ac tive Adhesive Bandage Unknown Active diphtheria-tetanus toxoids (obsolete) body aches Mild Active Elavil unknown Unknown Active Bactrim Upset stomach Unknown Active Assessment and Plan Future Appointments Functional Status 02/05/22 Other exposure to Infectious Disease None Medications Ambien 10 mg oral tablet 10 mg = 1 tab, Oral, every night at bedtime, 0 Refill(s) Start Date: 12/19/21 Status: OrderedamLODIPine 10 mg oral tablet 10 mg = 1 tab, Oral, Daily, # 30 tab, 0 Refill(s) Start Date: 12/19/21 Status: OrderedAspirin Enteric Coated 325 mg = 1 tab, Oral, BID, 0 Refill(s) Start Date: 12/22/21 Status: OrderedCeleBREX 100 mg oral capsule 100 mg = 1 cap, Oral, Daily, # 60 cap, 0 Refill(s) Start Date: 12/19/21 Status: OrderedDilaudid 4 mg oral tablet 4 mg = 1 tab, Oral, every 4 hr, PRN pain, 0 Refill(s) Start Date: 12/22/21 Status: OrderedhydroCHLOROthiazide 25 mg oral tablet 1 Unknown, 0 Refill(s) Start Date: 12/21/21 Status: OrderedhydroCHLOROthiazide 50 mg oral tablet 50 mg = 1 tab, Daily, 0 Refill(s) Start Date: 12/19/21 Status: Orderedketoconazole 2% topical cream 60 g, APPLY A SMALL AMOUNT TO AFFECTED AREA(S) ONCE DAILY, 0 Refill(s) Start Date: 12/21/21 Status: Orderedmultivitamin adult, oral tablet 1 tab, Oral, Daily, # 30 tab, 0 Refill(s) Start Date: 12/19/21 Status: Orderedomeprazole 20 mg oral delayed release capsule 90 EA, TAKE ONE CAPSULE BY MOUTH EVERY DAY, 0 Refill(s) Start Date: 12/21/21 Status: OrderedPotassium Chloride (Bqs-Qhpm-Fgz 10) 10 mEq oral tablet, extended release 30 EA, TAKE ONE TABLET BY MOUTH EVERY DAY, 0 Refill(s) Start Date: 12/21/21 Status: OrderedPriLOSEC OTC 20 mg oral delayed release tablet 20 mg = 1 tab, Oral, Daily, # 30 tab, 0 Refill(s) Start Date: 12/19/21 Status: OrderedTylenol 8 HR Arthritis Pain 650 mg oral tablet, extended release 1,300 mg = 2 tab, Oral, every 8 hr, PRN as needed for fever, # 50 tab, 0 Refill(s) Start Date: 12/19/21 Status: OrderedVitamin C 500 mg oral tablet 500 mg = 1 tab, Oral, Daily, # 90 tab, 0 Refill(s) Start Date: 02/05/22 Status: Orderedzolpidem 10 mg oral tablet 30 EA, TAKE ONE TABLET BY MOUTH EVERY EVENING NEEDED, 0 Refill(s) Start Date: 12/21/21 Status: Ordered Problem List Condition Confirmation Course Effective Dates Status Health I nformant Status Dentures Confirmed Active Diverticular disease Confirmed Active of colon H/O: osteoarthritis Confirmed Active Heart murmur Confirmed Active History of Confirmed Active Clostridium difficile infection HTN - Hypertension Confirmed Active Hypokalemia Confirmed Active Mitral regurgitation Confirmed Active PONV - Postoperative Confirmed Active nausea and vomiting Seasonal allergy Confirmed Active Procedures Procedure Date Related Diagnosis Body Site Status Total Shoulder Arthroplasty (Right)1 12/21/21 Completed Arthroplasty of knee Complet ed Arthroplasty of shoulder Com pleted Bilateral tubal ligation Com pleted Colectomy2 Completed Hernia repair3 Completed 1auto-populated from documented surgical [id number] intestine divertic3 incisional hernia with mesh Vital Signs Most recent to oldest [Reference Range]: 1 Peripheral Pulse Rate [60-100 bpm] 80 bpm (02/05/22 10:23 AM) Blood Pressure [90-140/60-90 mmHg] 128/80 mmHg (02/05/22 10:23 AM) Weight 72.57 kg (02/05/22 10:23 AM) Weight Measured (lbs) 159.989 lb (02/05/22 10:23 AM) Height 157.48 cm (02/05/22 10:23 AM) Height/Length Measured (inches) 62 inch (02/05/22 10:23 AM) BSA Measured 1.78 m2 (02/05/22 10:23 AM) Body Mass Index 29.26 kg/m2 (02/05/22 10:23 AM) Social History Social History Type Response Tobacco Never tobacco user Tobacco U se:. Sex Implantable Device List Procedure Provider Procedure Date Device Type Site Arthroplasty, glenohumeral Antony Hope MD 12/21/21 Non Biolog ical Shoulder R joint; total shoulder (glenoid and proximal humeral replacement (eg, total shoulder)) Device Serial Lot or Manufacturing Expiration Distinct MRI Implan table Assigning Identifier Number Batch Date Date Identification Safety Status Authority Number Code Unknown Unknown [id number] Unknown 12/31/23 Unknown Unknown Active Unknown 701 Unknown Unknown [id number] Unknown 11/01/21 Unknown Unknown Active Unknown 9 Unknown Unknown [id number] Unknown 06/03/31 Unknown Unknown Active Unknown 1 Unknown Unknown [id number] Unknown 11/09/31 Unknown Unknown Active Unknown 2 Unknown Unknown [id number] Unknown 05/06/31 Unknown Unknown Active Unknown 7 Unknown Unknown [id number] Unknown 07/02/26 Unknown Unknown Active Unknown 2 Hospital Discharge Instructions Follow Up Care01/01/2022 11:04:22With:Petra Leger APRN, Address: [address] [place] [id number]- When:Within 2 Month(s) Comments:F/U RIGHT TSA (3RD POV, NO X-RAY)Joan [facility] Ambulatory Clinics Physical therapy Note Event Display: Physical Therapy Rehab Note Physician Outpatient Note Petra Africa F[employer]IT[employer] R[employer]AL CONSULTANT,: PERFORM Event Display: Office Clinic Note Physician Authored Date: [id number] SUSANNA UNDERWOOD :1940 Age:81 years Sex:Female Visit Date:02/05/2022 Primary Care Physician: GRACIELA MERLOS Chief Complaint S/P Right shoulder History of Present Illness Susanna is a pleasant 81-year-old woman, well-known to Dr. Hope' practice. ??She is about 6 weeks status post right total shoulder arthroplasty. ??She also underwent left total shoulder??a little over 2 years ago.?? She states the left shoulder is doing great. ??The right shoulder is??coming along. ??She has been in physical therapy for several weeks. ??She has been doing her home exercises with pulleys.?? She feels that she is coming along just fine in terms of the right shoulder. Review of Systems Right shoulder stiffness, mild pain Otherwise negative ROS Physical Exam Vitals & Measurements HR:??80??(Peripheral)?? BP:??128/80?? SpO2:??96%?? HT:??157.48??cm?? WT:??72.57??kg?? BMI:??29.26?? Pain Score:??3?? BSA:??1.78?? The patient is alert and oriented x3. ??Very pleasant. ??No acute distress. ??She appears stated age and is well-nourished and well-developed. ??Pleasant and cooperative. ??Well-dressed and well-groomed. ??Examination of the??right shoulder reveals??a fully healed deltopectoral incision. ??No signs or symptoms of infection.?? Small absorbable stitch is noted at the distal incision,??this is removed without difficulty.?? Active forward flexion is to about 50 degrees. ??Extension is full.?? Internal rotation is thumb to just above the pant line. ??Abduction is to about 45 degrees. ??Arm and forearm compartments are soft and nontender. ??The patient has full range of motion of the elbow.?? Radial pulse is 2+. ??Skin is warm and pink with brisk capillary refill and sensation and motion are intact distally. Assessment/Plan 1.??Status post total shoulder arthroplasty??Z96.619 Susanna is a pleasant 81-year-old woman who is doing well 6 weeks status post right total shoulder arthroplasty.?? She is coming along nicely. ??X-rays are stable, I have reviewed this with her. ??She will continue with physical therapy and her home exercise program.?? I would like to see her back in about 2 months to see how she is coming along. ??She is in agreement with that plan. ??She is encouraged to contact the office anytime with questions or concerns. Follow Up Instructions With When Contact Information Petra Leger APRN, In 2 months [address] [place] [address]- Additional Instructions: F/U RIGHT TSA (3RD POV, NO X-RAY) Problem List/Past Medical History Ongoing Dentures Diverticular disease of colon H/O: osteoarthritis Heart murmur History of Clostridium difficile infection HTN - Hypertension Hypokalemia Mitral regurgitation PONV - Postoperative nausea and vomiting Seasonal allergy Historical No qualifying data Procedure/Surgical History ???Total Shoulder Arthroplasty (Right) (12/21/2021)???Arthroplasty of knee???Arthroplasty of shoulder???Bilateral tubal ligation???Colectomy???Hernia repair Medications Ambien 10 mg oral tablet, 10 mg= 1 tab, Oral, every night at bedtime amLODIPine 10 mg oral tablet, 10 mg= 1 tab, Oral, Daily Aspirin Enteric Coated, 325 mg= 1 tab, Oral, BID CeleBREX 100 mg oral capsule, 100 mg= 1 cap, Oral, Daily Dilaudid 4 mg oral tablet, 4 mg= 1 tab, Oral, every 4 hr, PRN hydroCHLOROthiazide 25 mg oral tablet hydroCHLOROthiazide 50 mg oral tablet, 50 mg= 1 tab, Daily ketoconazole 2% topical cream multivitamin adult, oral tablet, 1 tab, Oral, Daily omeprazole 20 mg oral delayed release capsule Potassium Chloride (Txx-Mxpd-Chu 10) 10 mEq oral tablet, extended release PriLOSEC OTC 20 mg oral delayed release tablet, 20 mg= 1 tab, Oral, Daily Tylenol 8 HR Arthritis Pain 650 mg oral tablet, extended release, 1300 mg= 2 tab, Oral, every 8 hr,PRN Vitamin C 500 mg oral tablet, 500 mg= 1 tab, Oral, Daily zolpidem 10 mg oral tablet Allergies diphtheria-tetanus toxoids (obsolete)??(body aches) Adhesive Bandage Bactrim??(Upset stomach) Elavil??(unknown) codeine??(Vomit) sulfamethoxazole-trimethoprim??(Unknown) Social History Alcohol Current, Liquor, Daily Electronic Cigarette/Vaping Electronic Cigarette Use: Never. Substance Use Current Tobacco Never tobacco user Tobacco Use:. Diagnostic Results Diagnostic Study Interpretation: New x-rays of the right shoulder obtained today are personally reviewed on the [facility] system.?? Total shoulder prosthesis is noted in anatomic position and alignment. ??No radiographic evidence of complication. ??Stable when compared to postoperative films. Electronically Signed on 02/05/22 10:43 AM Petra Leger APRN, Patient Care team information PersonnelName: GRACIELA MERLOS Address: Address: [address] [place] [address]- [place]
--- OUTSIDE RECORDS SUMMARY | 2022-03-05 08:58 | XMS_ITS | Continuity of Care Document ---
:1940 Author Organization [facility] Ambulatory Clinics Address [address] [place] [address] Care Team Providers Name Role Phone KINGShunGRACIELA Primary Care Physician Encounter [facility] NBR [id number] Date(s): 01/01/22 - 01/01/22 [facility] Ambulatory Clinics [address] [place] [address] [place] Encounter Diagnosis Shoulder pain (Discharge Diagnosis) - 01/01/22 Discharge Disposition: Home or Self Care Attending Physician: Antony Hope MD Allergies, Adverse Reactions, Alerts Substance Reaction Severity Status codeine Vomit Unknown Active Adhesive Bandage Unknown Active Bactrim Upset stomach Unknown Active Assessment and Plan Future Appointments Functional Status 01/01/22 Other exposure to Infectious Disease None Medications [...] 0 Refill(s) Start Date: 12/19/21 Status: OrderedDilaudid 2 mg oral tablet 2 mg = 1 tab, Oral, every 4 hr, PRN pain, 0 Refill(s) Start Date: 12/22/21 Status: OrderedDilaudid 4 mg oral tablet 4 [...] Refill(s) Start Date: 12/21/21 Status: OrderedPotassium Chloride (Slp-Aejd-Lma 10) 10 mEq oral tablet, extended release 30 EA, TAKE ONE TABLET BY MOUTH EVERY DAY, 0 Refill(s) Start Date: 12/21/21 Status: Orderedpotassium chloride 20 mEq oral tablet, extended release 20 mEq = 1 tab, Oral, Daily, # 30 tab, 0 Refill(s) Start Date: 12/19/21 Status: OrderedPriLOSEC OTC 20 mg oral delayed release tablet 20 mg = 1 tab, Oral, Daily, # 30 tab, 0 Refill(s) Start Date: 12/19/21 Status: OrderedTylenol 8 HR Arthritis Pain 650 mg oral tablet, extended release 1,300 mg = 2 tab, Oral, every 8 hr, PRN as needed for fever, # 50 tab, 0 Refill(s) Start Date: 12/19/21 Status: Orderedzolpidem 10 mg oral tablet 30 [...] Hernia repair3 Completed 1auto-populated from documented surgical [id number] intestine divertic3 incisional hernia with mesh Vital Signs Most recent to oldest [Reference Range]: 1 Peripheral Pulse Rate [60-100 bpm] 80 bpm (01/01/22 10:36 AM) Blood Pressure [90-140/60-90 mmHg] 128/76 mmHg (01/01/22 10:36 AM) Weight 72.57 kg (01/01/22 10:36 AM) Weight Measured (lbs) 159.989 lb (01/01/22 10:36 AM) Height 157.48 cm (01/01/22 10:36 AM) Height/Length Measured (inches) 62 inch (01/01/22 10:36 AM) BSA Measured 1.78 m2 (01/01/22 10:36 AM) Body Mass Index 29.26 kg/m2 (01/01/22 10:36 AM) Social History Social History Type Response [...] Safety Status Authority Number Code Unknown Unknown [id number] Unknown 12/31/23 Unknown Unknown Active Unknown 701 Unknown Unknown [id number] Unknown 11/01/21 Unknown Unknown Active Unknown 9 Unknown Unknown [id number] Unknown 06/03/31 Unknown Unknown Active Unknown 1 Unknown Unknown [id number] Unknown 11/09/31 Unknown Unknown Active Unknown 2 Unknown Unknown [id number] Unknown 05/06/31 Unknown Unknown Active Unknown 7 Unknown Unknown [id number] Unknown 07/02/26 Unknown Unknown Active Unknown 2 Patient Care team information PersonnelName: GRACIELA MERLOS Address: Address: [address] [place] [address]
--- OUTSIDE RECORDS SUMMARY | 2022-03-05 08:58 | XMS_ITS | Continuity of Care Document ---
:1940 Author Organization [facility] e Address [address] [place] [address] Care Team Providers Name Role Phone KINGShunGRACIELA Primary Care Physician Encounter [facility] NBR [id number] Date(s): 12/21/21 - 12/22/[address] [address]- [place] Encounter Diagnosis H/O: osteoarthritis (Discharge Diagnosis) - 12/21/21 Discharge Disposition: Home or Self Care Attending Physician: Antony Hope MD Admitting Physician: Antony Hope MD Referring Physician: Antony Hope MD Allergies, Adverse Reactions, Alerts Substance Reaction Severity Status codeine Vomit Unknown Active Adhesive Bandage Unknown Active Bactrim Upset stomach Unknown Active Assessment and Plan Future Appointments Functional Status 12/22/21 Home Equipment Other: Sling 12/22/21 Living Environment Home Environment Devices/Equipment at Home: O ther: Sling Performed By: Zuleyka Acosta 12/22/2021 Lives In: Split level home P erformed By: Cally Goldsmith 12/21/2021 Home Equipment Rehab Cane Prior ADL Status Independent Prior Mobility Status Independent Prior Instrumental ADL Level Independent Prior Cognitive-Communication Skills Independent 12/22/21 Activity Status ADL Other: resting Orthopedic/Preventive Devices Sling 12/21/21 Lives In Split level home Home Barriers None 12/21/21 Personal Care Provided Other: declined care. 12/21/21 Dinner Percent 75 12/21/21 Family Member Travel History No recent travel Recent Travel History No recent travel Other exposure to Infectious Disease None 12/21/21 ADLs Moderate assistance 12/21/21 Anti-Embolism Device Activity: Removed Anti-Embolism Device Removal Reason: Discontinued Anti-Embolism Site Condition: No complications Medications Ambien 10 mg oral tablet 10 [...] Refill(s) Start Date: 12/21/21 Status: OrderedPotassium Chloride (Nli-Chdo-Ypl 10) 10 mEq oral tablet, extended release [...] 0 Refill(s) Start Date: 12/21/21 Status: Ordered Mental Status 12/21/21 Eye Opening Response [place] Spontaneously Best Verbal Response [place] Oriented Best Motor Response [place] Obeys commands [place] Coma Score 15 Problem List Condition Confirmation Course Effective Dates [...] Hernia repair3 Completed 1auto-populated from documented surgical [id number] intestine divertic3 incisional hernia with mesh Results Laboratory List Name Date SARS-CoV-2 (COVID-19) PCR (GeneXpert) (COVID 19 (GeneX pert)) 12/21/21 Most recent to oldest [Reference Range]: 1 SARS-CoV-2 (COVID-19) PCR (GeneXpert) [Negative] Negat martina (12/21/21 6:44 AM) Employed in healthcare? No *NA* (12/21/21 6:44 AM) Symptomatic as defined by CDC? No *NA* (12/21/21 6:44 AM) Hospitalized due to COVID-19? No *NA* (12/21/21 6:44 AM) In ICU? No *NA* (12/21/21 6:44 AM) Group care resident? No *NA* (12/21/21 6:44 AM) status? Not *NA* (12/21/21 6:44 AM) Radiology Reports Exam Date Time Procedure Performing Provider Status 12/21/21 9:36 AM XR Shoulder 1 View Right Earline [place]; Aut h (Verified) Notes:(XR Shoulder 1 View Right) Reason For Exam: post opXR Shoulder 1 View Right EXAM DESCRIPTION: XR Shoulder right, two views 12/21/2021 INDICATION: POST OP COMPARISON: 11/29/2021 IMPRESSION: Status post right shoulder arthroplasty with satisfactory postoperative appearance. Mild regional soft tissue gas consistent with recent postoperative state Mild AC joint arthritic changes with joint space narrowing and osteophyte formation. JOB #: [id number] Final Signed by: Antony Dudley MD Signed (Electronic Signature): 12/21/2021 9:43 am Vital Signs Most recent to oldest 1 2 3 [Reference Range]: Temperature Temporal Artery 36.3 Deg C 37.2 Deg C 36.5 Deg C [36-38 Deg C] (12/22/21 7:22 AM) (12/22/21 4:24 AM) (12/21/21 11:36 PM) Temperature Temporal Artery 97.34 Deg F 98.96 Deg F 97.7 Deg F (DegF) [97.3-100 Deg F] (12/22/21 7:22 AM) (12/22/21 4:24 AM) (1 11:36 PM) Peripheral Pulse Rate 88 bpm 84 bpm 91 bpm [60-100 bpm] (12/22/21 7:22 AM) (12/22/21 4:24 AM) (12/21/21 11:36 PM) Respiratory Rate [12-24 16 br/min 16 br/min 20 br/mi n br/min] (12/22/21 7:22 AM) (12/22/21 4:24 AM) (12/21/21 11:36 PM) Blood Pressure 141/62 mmHg 135/55 mmHg 149/78 mmHg [90-140/60-90 mmHg] *HI* (12/22/21 4:24 AM) *HI* (12/22/21 7:22 AM) (12/21/21 11: 36 PM) Mean Arterial Pressure, 88 mmHg 82 mmHg 93 mmHg Cuff [65-140 mmHg] (12/22/21 7:22 AM) (12/22/21 4:24 AM) ( 11:49 AM) Mean Arterial Pressure Cuff 88 mmHg 85 mmHg 85 m mHg (12/21/21 11:06 AM) (12/21/21 10:49 AM) ( 2 10:44 AM) Weight 73.000 kg (12/19/21 12:27 PM) Weight Dosing 73.000 kg (12/19/21 12:27 PM) Height 156.000 cm (12/19/21 12:27 PM) Height/Length Dosing 156.000 cm (12/19/21 12:27 PM) Social History Social History Type Response Tobacco [...] Safety Status Authority Number Code Unknown Unknown [id number] Unknown 12/31/23 Unknown Unknown Active Unknown 701 Unknown Unknown [id number] Unknown 11/01/21 Unknown Unknown Active Unknown 9 Unknown Unknown [id number] Unknown 06/03/31 Unknown Unknown Active Unknown 1 Unknown Unknown [id number] Unknown 11/09/31 Unknown Unknown Active Unknown 2 Unknown Unknown [id number] Unknown 05/06/31 Unknown Unknown Active Unknown 7 Unknown Unknown [id number] Unknown 07/02/26 Unknown Unknown Active Unknown 2 Hospital Discharge Instructions Patient Akvvzczqt74/21/2022 08:30:41Preventing Osteoporosis, AdultPreventing Osteoporosis, Adult Osteoporosis is a condition that causes the bones to lose density. This means that the bones become thinner, and the normal spaces in bone tissue become larger. Low bone density can make the bones weakand cause them to break more easily. Osteoporosis cannot always be prevented, but you can take steps to lower your risk of developing this condition. How can this condition affect me? If you develop osteoporosis, you will be more likely to break bones in your wrist, spine, or hip. Even a minor accident or injury can be enough to break weak bones. The bones will also be slower to heal. Osteoporosis can cause other problems as well, such as a stooped posture or trouble with movement. Osteoporosis can occur with aging. As you get older, you may lose bone tissue more quickly, or it may be replaced more slowly. Osteoporosis is more likely to develop if you have poor nutrition or do not get enough calcium or vitamin D. Other lifestyle factors can also play a role. By eating a well-balanced diet and making lifestyle changes, you can help keep your bones strong and healthy, lowering your chances of developing osteoporosis. What can increase my risk? The following factors may make you more likely to develop osteoporosis: ??? Having a family history of the condition. ??? Having poor nutrition or not getting enough calcium or vitamin D. ??? Using certain medicines, such as steroid medicines or anti-seizure medicines. ??? Being any of the following: ??? 50 years of age or older. ??? Female. ??? A woman who has gone through menopause (is postmenopausal). ??? A person who is of or descent. ??? Using products that contain nicotine or tobacco, such as cigarettes, e- cigarettes, and chewing tobacco. ??? Not being physically active (being sedentary). ??? Having a small body frame. What actions can I take to prevent this? Get enough calcium ??? Make sure you get enough calcium every day. Calcium is the most important mineral for bone health. Most people can get enough calcium from their diet, but supplements may be recommended for people who are at risk for osteoporosis. Follow these guidelines: ??? If you are age 50 or younger, aim to get 1,000 milligrams (mg) of calcium every day. ??? If you are older than age 50, aim to get 1,200 mg of calcium every day. ??? Good sources of calcium include: ??? Dairy products, such as low-fat or nonfat milk, cheese, and yogurt. ??? Dark green leafy vegetables, such as bok ramesh and broccoli. ??? Foods that have had calcium added to them (calcium-fortified foods), such as orange juice, cereal, bread, soy beverages, and tofu products. ??? Nuts, such as almonds. ??? Check nutrition labels to see how much calcium is in a food or drink. Get enough vitamin D ??? Try to get enough vitamin D every day. Vitamin D is the most essential vitamin for bone health. It helps the body absorb calcium. Follow these guidelines for how much vitamin D to get from food: ??? If you are age 70 or younger, aim to get at least 600 international units (IU) every day. Your health care provider may suggest more. ??? If you are older than age 70, aim to get at least 800 international units every day. Your healthcare provider may suggest more. ??? Good sources of vitamin D in your diet include: ??? Egg yolks. ??? Oily fish, such as salmon, sardines, and tuna. ??? Milk and cereal fortified with vitamin D. ??? Your body also makes vitamin D when you are out in the sun. Exposing the bare skin on your face,arms, legs, or back to the sun for no more than 30 minutes a day, 2 times a week is more than enough. Beyond that, make sure you use sunblock to protect your skin from sunburn, which increases your risk for skin cancer. Exercise ??? Stay active and get exercise every day. ??? Ask your health care provider what types of exercise are best for you. Weight-bearing and strength-building activities are important for building and maintaining healthy bones. Some examples of these types of activities include: ??? Walking and hiking. ??? Jogging and running. ??? Dancing. ??? Gym exercises and lifting weights. ??? Tennis and racquetball. ??? Climbing stairs. ??? Jose chi. Make other lifestyle changes ??? Do not use any products that contain nicotine or tobacco, such as cigarettes, e-cigarettes, and chewing tobacco. If you need help quitting, ask your health care provider. ??? Lose weight if you are overweight. ??? If you drink alcohol: ??? Limit how much you use to: ??? 0???1 drink a day for women who are not . ??? 0???2 drinks a day for men. ??? Be aware of how much alcohol is in your drink. In the [place] one drink equals one 12 oz bottle ofbeer (355 mL), one 5 oz glass of wine (148 mL), or one 1?? oz glass of hard liquor (44 mL). Where to find support If you need help making changes to prevent osteoporosis, talk with your health care provider. You can ask for a referral to a dietitian and a physical therapist. Where to find more information Learn more about osteoporosis from: ??? NIH Osteoporosis and Related Bone Diseases National Resource Center: www.bones.nih.gov ??? U.S. Office on Women's Health: www.womenshealth.gov ??? National Osteoporosis Foundation: www.nof.org Summary ??? Osteoporosis is a condition that causes weak bones that are more likely to break. ??? Eat a healthy diet, making sure you get enough calcium and vitamin D, and stay active by gettingregular exercise to help prevent osteoporosis. ??? Other ways to reduce your risk of osteoporosis include maintaining a healthy weight and avoidingalcohol and products that contain nicotine or tobacco. This information is not intended to replace advice given to you by your health care provider. Make sure you discuss any questions you have with your health care provider. Document Revised: 08/03/2020 Document Reviewed: 08/03/2020 [employer] Patient Education ?? 2021 [employer]. Follow Up Care12/11/2021 17:41:34With:Antony Hope Address: [address] [place] [id number] [facility] (1) When:1 month Comments:appointment with Antony Hope on 01/01/22 at 10:45[facility] XR Shoulder - right Single view Antony Dudley MD: VERIFY, VERIFY Event Display: Report EXAM DESCRIPTION: XR Shoulder right, two views 12/21/2021 INDICATION: POST OP COMPARISON: 11/29/2021 IMPRESSION: Status post right shoulder arthroplasty with satisfactory postoperative appearance. Mild regional soft tissue gas consistent with recent postoperative state Mild AC joint arthritic changes with joint space narrowing and osteophyte formation. JOB #: [id number] Final Signed by: Antony Dudley MD Signed (Electronic Signature): 12/21/2021 9:43 am Patient Care team information PersonnelName: GRACIELA MERLOS Address: Address: [address] [place] [address]
--- OUTSIDE RECORDS SUMMARY | 2022-03-05 08:58 | XMS_ITS | Continuity of Care Document ---
:1940 Author Organization [facility] e Address [address] [place] [address] Care Team Providers Name Role Phone GRACIELA MERLOS Primary Care Physician Encounter [facility] NBR [id number] Date(s): 12/07/21 - 12/07/[address] [address] Discharge Disposition: Home or Self Care Attending Physician: Antony Hope MD Admitting Physician: Antony Hope MD Assessment and Plan Future Appointments Results Laboratory List Name Date Staph Nasal Complete (GeneXpert) (MRSA/MSSA Nasal (Gen eXpert)) 12/07/21 Most recent to oldest [Reference Range]: 1 MRSA Screen -GeneXpert [Negative] Negative (12/07/21 8:19 AM) MSSA Screen -GeneXpert [Negative] Negative (12/07/21 8:19 AM) Patient Care team information PersonnelName: GRACIELA MERLOS Address: Address: [facility] [address] [place], [place] [address]
--- OUTSIDE RECORDS SUMMARY | 2022-03-05 08:58 | XMS_ITS | Continuity of Care Document ---
:1940 Author Organization [facility] e Address [address] [place] [address] Care Team Providers Name Role Phone GAURANG GRACIELA Shun Primary Care Physician Encounter [facility] NBR [id number] Date(s): 02/05/22 - 02/05/[address] [address] Discharge Disposition: Home or Self Care Attending Physician: Petra Leger BRAIDING MACHINE TENDER, Admitting Physician: Petra Leger BRAIDING MACHINE TENDER, Allergies, Adverse Reactions, Alerts Substance Reaction Severity Status codeine Vomit Unknown Active sulfamethoxazole-trimethoprim Unknown Unknown Ac tive Adhesive Bandage Unknown Active diphtheria-tetanus toxoids (obsolete) body aches Mild Active Elavil unknown Unknown Active Bactrim Upset stomach Unknown Active Assessment and Plan Future Appointments Medications Ambien 10 mg oral tablet 10 [...] Refill(s) Start Date: 12/21/21 Status: OrderedPotassium Chloride (Qce-Htss-Usw 10) 10 mEq oral tablet, extended release [...] Hernia repair3 Completed 1auto-populated from documented surgical [id number] intestine divertic3 incisional hernia with mesh Results Radiology Reports Exam Date Time Procedure Performing Provider Status 02/05/22 10:11 AM XR Shoulder Complete 2+ Views Mateo Nancy n; Auth (Verified) Right Notes:(XR Shoulder Complete 2+ Views Right) Reason For Exam: S/P Total shoulder XR Shoulder Complete 2+ Views Right EXAM DESCRIPTION: XR Shoulder Complete 2+ Views Right 02/05/2022 INDICATION: S/P TOTAL SHOULDER COMPARISON: 12/21/2021 IMPRESSION: Status post right shoulder arthroplasty with stable satisfactory appearance. No focal lytic or destructive changes to suggest loosening or infection No acute fracture or dislocation AC joint arthritic changes with joint space narrowing and osteophyte formation. JOB #: [id number] Final Signed by: Antony Dudley MD Signed (Electronic Signature): 02/05/2022 10:16 am Social History Social History Type Response Tobacco [...] Safety Status Authority Number Code Unknown Unknown [id number] Unknown 12/31/23 Unknown Unknown Active Unknown 701 Unknown Unknown [id number] Unknown 11/01/21 Unknown Unknown Active Unknown 9 Unknown Unknown [id number] Unknown 06/03/31 Unknown Unknown Active Unknown 1 Unknown Unknown [id number] Unknown 11/09/31 Unknown Unknown Active Unknown 2 Unknown Unknown [id number] Unknown 05/06/31 Unknown Unknown Active Unknown 7 Unknown Unknown [id number] Unknown 07/02/26 Unknown Unknown Active Unknown 2 XR Shoulder - right GE 2 Views Antony Dudley MD: VERIFY, VERIFY Event Display: Report EXAM DESCRIPTION: XR Shoulder Complete 2+ Views Right 02/05/2022 INDICATION: S/P TOTAL SHOULDER COMPARISON: 12/21/2021 IMPRESSION: Status post right shoulder arthroplasty with stable satisfactory appearance. No focal lytic or destructive changes to suggest loosening or infection No acute fracture or dislocation AC joint arthritic changes with joint space narrowing and osteophyte formation. JOB #: [id number] Final Signed by: Antony Dudley MD Signed (Electronic Signature): 02/05/2022 10:16 am Patient Care team information PersonnelName: KINGShunGRACIELA Address: Address: [address] [place] [address] [place]
[2022-03-05 19:49] LABS: Anion Gap 8.4 mmol/L (3-11); BUN 22 mg/dL (7-18); CO2 27.6 mmol/L (21.0-32.0); CREATININE 1.1 mg/dL (0.55-1.02); Calcium 9.3 mg/dL (8.5-10.1); Chloride 104 mmol/L (98-107); Estimated GFR 51.11 (mL/min/1.73m2); Glucose 129 mg/dL (74-106); Magnesium 1.8 mg/dL (1.8-2.4); Potassium 3.5 mmol/L (3.5-5.1); Sodium 140 mmol/L (136-145)
== END 2022-03-05 08:57 | disposition home or self-care (01) ==
LOC: NCHCN 08:56
PROVIDERS: PCP Nurse Practitioner Family; Visit Provider Nurse Practitioner Family
DX: I10 Essential (primary) hypertension (principal)
CPT/HCPCS: 80048; 83735

== ENCOUNTER 2022-05-20 01:55 | Outpatient (CLI) | payer MEDICARE, SELFPAY ==
--- NOTE | 2022-05-20 | DI.MRI_ITS ---
Exam(s) MR LUMBAR SPINE WO EXAM: MR LUMBAR SPINE WO CLINICAL HISTORY: WORSENING LOW BACK PAIN, M54.59. TECHNIQUE: Multiplanar multisequence MRI of the Lumbar spine was performed. COMPARISON: CR,XR XR ABDOMEN FLAT UPRIGHT from 07/16/2020 FINDINGS: There are no plain films lumbar spine available time this MRI interpretation. Prior abdomen images r eviewed. Severe scoliosis convex left noted. There also appears to be transitional anatomy. Conus medullaris is at normal level. There is no evidence of conus mass nor subjacent clumping of in trathecal nerve roots to suggest arachnoiditis. The distal thecal sac appears unremarkable.There is no evidence of Tarlov intrasacral cysts nor other significant findings within the sacral canal Bones:There are no fractures nor ominous osseous lesions in the lumbar vertebral bodies and visualize d sacrum. With respect to the individual levels... T12-L1: Advanced disc space narrowing. Broad annular bulging. No central canal stenosis. Mild fora chacorta stenosis bilaterally. L1-2: Broad relatively symmetrical disc space narrowing. Mild retrolisthesis L1 upon L2. No distinc t focal disc herniation. Central canal dimensions lower normal. There is some moderate facet joint narrowing bilaterally.Moderate degenerative changes in the facet joints. L2-3: Advanced disc space narrowing throughout the disc space with more prominent disc space narrowin g on the right side where there are bridging right-sided osteophytes. There is no central spinal can al stenosis. There is foraminal stenosis bilaterally at this level. Moderate facet arthropathy bila terally. L3-4: This level exhibits asymmetric disc space narrowing, significantly more prominent on the right side. Central canal dimensions lower normal. No foraminal stenosis on the left side. Vertical fora chacorta stenosis evident on the right side. L4-5: Relatively uniform disc space narrowing. Also mild anterolisthesis L4 upon L5 due to advanced facet arthropathy at this level. There is moderate-severe central spinal canal stenosis at this leve l due to the annular bulging (there is no focal disc herniation), mild anterior slippage of L4 upon L 5 and severe facet arthropathy. With respect of the exiting neural foramina there was mild-moderate bilateral foraminal stenosis. Advanced facet arthropathy. L5-S1: There is relatively preserved disc height at this level but there is a amount of mild anteroli sthesis of L5 upon S1 due to facet arthropathy which is advanced also at this level. Mild central ca nal stenosis. There is no significant foraminal stenosis at this level. Soft tissues: Extensive sigmoid diverticulosis noted. IMPRESSION: 1. Multilevel findings as described individually above compound by severe degenerative scoliosis whic h is convex left in the lumbar spine. 2. The most significant central spinal canal stenosis is at L4-5 level (moderate-severe) due to mild annular bulging, anterolisthesis of L4 upon L5 and severe facet arthropathy. There is also mild-mode rate bilateral foraminal stenosis at this level. 3. Other level findings as described individually above. DATA REPOSITORY:
== END 2022-05-20 02:15 ==
LOC: DI 01:56
PROVIDERS: PCP Nurse Practitioner Family; Visit Provider Nurse Practitioner Family
DX: M54.59 Other low back pain (principal); M41.86 Other forms of scoliosis, lumbar region; M43.16 Spondylolisthesis, lumbar region; M47.816 Spondylosis without myelopathy or radiculopathy, lumbar region; M51.36 Other intervertebral disc degeneration, lumbar region
CPT/HCPCS: 72148

== ENCOUNTER → 2022-10-14 02:08 | Outpatient (CLI) | payer MEDICARE, SELFPAY ==
--- NOTE | 2022-10-14 10:57 | DI.MAMMO_ITS ---
Exam(s) MG MAMMO SCREENING 60 MIN DUR EXAM: MG MAMMO SCREENING 60 MIN DUR CLINICAL HISTORY: SCREENING, Z12.39. TECHNIQUE: Bilateral full field digital CC and MLO mammographic images were obtained with 3D tomosyn thesis and utilizing computer aided detection (CAD). COMPARISON: Prior mammograms were reviewed. FINDINGS: There has been no significant change in the appearance and distribution of the fibroglandular tissue. There are no CAD designations. There are no new spiculated masses nor malignant appearing microcalcification groups. Benign-appearing nodule laterally in the right breast is unchanged from at least 2014, most probably a benign intramammary lymph node.. There is no significant architectural distortion nor skin thickening-retraction. IMPRESSION: No radiographic evidence of malignancy. BI-RADS Category 1 - Negative Breast Density - Category B - Scattered areas of fibroglandular density Breast density Category C or D implies that the patient has dense breast tissue. Dense breast tissue can make it harder to find cancer on a mammogram. Dense breast tissue is also associated with an incr eased risk of breast cancer. This information about the result of the mammogram report was provided to the patient to raise their awareness. Use this report when you speak with the patient about their risks for breast cancer, which includes their family history. At that time, you may recommend additional screening tests (Ultrasoun d or MRI) as these tests may add significant information. A negative radiographic report should not delay biopsy if a dominant or clinically suspicious mass is present. Up to ten percent of cancers are not identified on mammography. A negative report may reinforce clinical impression. Adenosis and dense breasts may obscure an underlying neoplasm. False positive reports average 6 to 10%. Patient will receive a letter notifying them of these results.
== END ==
PROVIDERS: PCP Nurse Practitioner Family; Visit Provider Nurse Practitioner Family
DX: Z12.31 Encounter for screening mammogram for malignant neoplasm of breast (principal)
CPT/HCPCS: 77063; 77067

== ENCOUNTER 2022-11-28 12:00 | Outpatient (CLI) | payer MEDICARE, SELFPAY ==
--- NOTE | 2022-11-28 06:00 | DI.RAD_ITS ---
Exam(s) XR PAIN CLINIC LUMBAR SP 2V EXAM: XR PAIN CLINIC LUMBAR SP 2V CLINICAL HISTORY: DX: Lumbar spondylosis TECHNIQUE: 2D and realtime digital imaging was performed. Radiologist not present. CONTRAST MATERIAL: None. COMPARISON: No exams were available for comparison FINDINGS: Fluoroscopy was provided for pain management therapy. Please refer to procedure report or details. Radiation Exposure Index: Ka,r=14.39 mGy IMPRESSION: As above. RADIATION DOSE DELIVERED:
[2022-11-28 12:15] VITALS: BP 150/71; PULSE 96; RESP 20; TEMP 37; O2SAT 96
[2022-11-28 13:52] VITALS: BP 157/76; PULSE 99; RESP 16; O2SAT 98
[2022-11-28] MEDS: Omnipaque 240 MG/ML 50 ML BTL IJ (13:54)
[2022-11-28] MEDS: Bupivacaine 0.5% Pres-Free 10 ML VIAL IJ (13:54)
--- NOTE | 2022-11-29 09:57 | PDOC.PAIN_ITS ---
Date of service: 11/28/22 Time of Service: 13:30 Pain Managment Procedure Note Procedure Note Procedure Note: PROCEDURE NOTE Bilateral Lumbar Medial Branch Blocks Date of Service: November 28, 2022 Patient: Susanna Cunningham Provider: Alessio Howell DO, MPH Susanna Cunningham has been [facility] for lumbar medial branch blocks. Pre-operative diagnosis: Lumbar Spondylosis without Myelopathy Post-operative diagnosis: Same Pre-procedure pain: VAS= 8/10 COMMENTS: She was previously evaluated in the office and her symptoms have not changed. Celi was interviewed and the medical records were reviewed. There were no medical, pharmacologic, radiographic or other structural contraindications to attempting fluoroscopically guided local anesthetic lumbar medial branch blocks. Risks and potential side effects were discussed. I also discussed the potential benefit(s) of the procedure with Susanna, and voiced concerns were addressed. After Susanna was completely informed about the procedure, the printed consent form was signed. A standard time-out procedure was performed. Susanna was placed in the prone position on the fluoroscopy table. Automated blood pressure cuff and pulse oximeter were applied. The skin entry points for approaching the anatomic target points of the segmental medial branches of bilateral L3,L4,L5 were identified with fluoroscopy and marked. The skin at the target site area was thoroughly prepared with Chlorhexadine. The skin was then draped. Next, a 25 gauge 3.5 spinal needle was placed under fluoroscopic g uidance down on to the target point (the articular pillar) for each respective segmental medial branch. Position was confirmed in A/P and lateral views. Aspiration revealed no blood or clear fluid. Next, 0.25ml of omnipaque 240 was injected at each level. No contrast following a vascular or neural pattern was visualized under continuous fluoroscopy. Next, 0.25 ml of preservative-free 0.5% bupivicaine was injected at each level. There was no unusual discomfort expressed by Susanna. The needles were withdrawn without difficulty. (49 mls of Omnipaque was wasted) Susanna was observed and was without hemodynamic, neurologic, or allergic reactions.? Fluoroscopic images were digitally archived. Provacative testing using the Modified George's facet loading test- Left side Right Side Directly before the block VAS (0-10) = 8/10 VAS (0-10) = 8/10 Five minutes after the block VAS (0-10) = 0/10 VAS (0-10) = 0/10 Percentage relief obtained with this diagnostic block 100% 100% Any improved physical functioning directly after the blocks? Able to move in all directions without pain Follow up plans and appointments were discussed with Susanna. Susanna was instructed to keep careful note of how the usual pain was modified by these injections. Specifically, to keep a pain diary for the next 4 hours using a numeric pain scale of 0-10 and report these results. Post procedure instruction was given as documented in the nursing documentation and having met discharge criteria, the patient was [facility]. Based on the medial branches blocked today, if they patient has adequate relief and we are able to proceed to radiofrequency ablation, the treatment should result in the denervation of the bilateral L4-L5 and L5-S1 facet joints. We would expect to denervate a total of 4 facets during the radiofrequency ablation. COMMENTS: No apparent complications. Post-procedure pain: VAS= 0/10 Susanna will call back with 0-4 hour post-procedure pain scores. I personally performed the entire procedure. ALESSIO HOWELL DO, MPH ABPM&R-subspecialty board certification in Pain Medicine [facility]
== END 2022-11-28 12:01 | disposition home or self-care (01) ==
LOC: PC 12:01
PROVIDERS: PCP Nurse Practitioner Family; Visit Provider Preventive Medicine Occupational Medicine
DX: M54.50 Low back pain, unspecified (principal); M47.816 Spondylosis without myelopathy or radiculopathy, lumbar region
CPT/HCPCS: 64493; 64494; 72100; Q9967

== ENCOUNTER 2022-12-26 09:00 | Outpatient (CLI) | payer MEDICARE, SELFPAY ==
--- NOTE | 2022-12-26 06:00 | DI.RAD_ITS ---
Exam(s) XR PAIN CLINIC LUMBAR SP 2V EXAM: XR PAIN CLINIC LUMBAR SP 2V CLINICAL HISTORY: DX: Lumbar Spondylosis. TECHNIQUE: Fluoroscopy was provided for the referring physician for guidance with performing pain cl inic injection procedure. COMPARISON: No exams were available for comparison FINDINGS: Please see procedure note for details. Fluoro time: 62.4 seconds RADIATION DOSE DELIVERED: Kar=15.8 mGy
[2022-12-26 09:15] VITALS: BP 134/77; PULSE 101; RESP 20; TEMP 37; O2SAT 94
[2022-12-26 10:05] VITALS: BP 164/73; PULSE 108; RESP 19; O2SAT 97
[2022-12-26] MEDS: Bupivacaine 0.5% Pres-Free 10 ML VIAL IJ (10:10)
[2022-12-26] MEDS: Omnipaque 240 MG/ML 50 ML BTL IJ (10:10)
--- NOTE | 2022-12-31 08:26 | PDOC.PAIN ---
Date of service: 12/26/22 Time of Service: 09:30 Pain Managment Procedure Note Procedure Note Procedure Note: PROCEDURE NOTE Bilateral Lumbar Medial Branch Blocks #2 Date of Service: December 26, 2022 Patient: Susanna Cunningham Provider: Alessio Howell DO, MPH Susanna Cunningham has been referred to the [facility] for lumbar medial branch blocks. Pre-operative diagnosis: Lumbar Spondylosis without Myelopathy Post-operative diagnosis: Same Pre-procedure pain: VAS= 5/10 COMMENTS: She did very well with the LMBBs on 11/29/22. Her pain has returned. Celi was interviewed and the medical records were reviewed. There were no medical, pharmacologic, radiographic or other structural contraindications to attempting fluoroscopically guided local anesthetic lumbar medial branch blocks. Risks and potential side effects were discussed. I also discussed the potential benefit(s) of the procedure with Susanna, and voiced concerns were addressed. After Susanna was completely informed about the procedure, the printed consent form was signed. A standard time-out procedure was performed. Susanna was placed in the prone position on the fluoroscopy table. Automated blood pressure cuff and pulse oximeter were applied. The skin entry points for approaching the anatomic target points of the segmental medial branches of bilateral L3,L4,L5 were identified with fluoroscopy and marked. The skin at the target site area was thoroughly prepared with Chlorhexadine. The skin was then draped. Next, a 25 gauge 3.5 spinal needle was placed under fluoroscopic guidance down on to the target point (the articular pillar) for each respective segmental medial branch. Position was confirmed in A/P and lateral views. Aspiration revealed no blood or clear fluid. Next, 0.25ml of omnipaque 240 was injected at each level. No contrast following a vascular or neural pattern was visualized under continuous fluoroscopy. Next, 0.25 ml of preservative-free 0.5% bupivicaine was injected at each level. There was no unusual discomfort expressed by Susanna. The needles were withdrawn without difficulty. (49 mls of Omnipaque was wasted) Susanna was observed and was without hemodynamic, neurologic, or allergic reactions.? Fluoroscopic images were digitally archived. Provacative testing using the Modified George's facet loading test- Left side Right Side Directly before the block VAS (0-10) = 5/10 VAS (0-10) = 5/10 Five minutes after the block VAS (0-10) = 1/10 VAS (0-10) = 1/10 Percentage relief obtained with this diagnostic block 80% 80% Any improved physical functioning directly after the blocks? Able to move her low back with very little pain. Follow up plans and appointments were discussed with Susanna. Susanna was instructed to keep careful note of how the usual pain was modified by these injections. Specifically, to keep a pain diary for the next 4 hours using a numeric pain scale of 0-10 and report these results. Post procedure instruction was given as documented in the nursing documentation and having met discharge criteria, the patient was discharged from the [facility]. Based on the medial branches blocked today, if they patient has adequate relief and we are able to proceed to radiofrequency ablation, the treatment should result in the denervation of the bilateral L4-L5 and L5-S1 facet joints. We would expect to denervate a total of 4 facets during the radiofrequency ablation. COMMENTS: No apparent complications. Post-procedure pain: VAS= 1/10 Susanna will call back with 0-4 hour post-procedure pain scores. I personally performed the entire procedure. ALESSIO HOWELL DO, MPH ABPM&R-subspecialty board certification in Pain Medicine [facility] [facility]
== END 2022-12-26 09:01 | disposition home or self-care (01) ==
LOC: PC 09:01
PROVIDERS: PCP Nurse Practitioner Family; Visit Provider Preventive Medicine Occupational Medicine
DX: M54.50 Low back pain, unspecified (principal); M47.816 Spondylosis without myelopathy or radiculopathy, lumbar region
CPT/HCPCS: 00123; 64493; 64494; 72100; Q9967

== ENCOUNTER 2023-01-29 07:24 | Outpatient (CLI) | payer MEDICARE, SELFPAY ==
[2023-01-29 07:41] VITALS: BP 157/59; PULSE 82; RESP 20; TEMP 36.7; O2SAT 96
[2023-01-29] MEDS: fentaNYL 100 MCG/2 ML VIAL IVP (08:35)
[2023-01-29] MEDS: Midazolam 2 MG/2 ML VIAL IVP (08:35)
[2023-01-29] MEDS: Lactated Ringers 500 ML 80 ML IV (08:36)
[2023-01-29 09:12] VITALS: BP 136/62; PULSE 61; RESP 18; O2SAT 93
--- NOTE | 2023-01-29 09:16 | PDOC.PAIN ---
Date of service: 01/29/23 Time of Service: 09:16 Pain Managment Procedure Note Procedure Note Procedure Note: PROCEDURE NOTE BILATERAL LUMBAR RADIOFREQUENCY ABLATION Date of Service: January 29, 2023 Patient:? Susanna Cunningham? Provider:? Alessio Howell DO, MPH Susanna Cunningham has been referred to the [facility] for Bilateral Lumbar Radiofrequency Ablation with the AvENEFpros Machine.? Pre Operative Diagnosis: Lumbosacral Spondylosis without Myelopathy Post Operative Diagnosis: Same Pre procedure pain; VAS= 8/10 Comments: She did well with her LMBBs on 11/29/22 and 12/26/22. PROCEDURE: Radiofrequency Ablation of medial branches - bilateral L3, L4, L5 and lateral branches of bilateral S1. Susanna?was interviewed and the medical record was reviewed.? There were no medical, pharmacologic, radiographic or other structural contraindications to attempting fluoroscopically guided BILATERAL Lumbar Radiofrequency Ablation.?Risks and expected side effects as well as potential benefit of the procedure were reviewed with Susanna, and the patient's voiced concerns were addressed.? The printed consent form was signed.? Standard time-out procedure was performed. Susanna was brought into the fluoroscopy suite and positioned into the prone position on the fluoroscopy table and allowed to adjust to a position of comfort. A grounding pad was placed on the left abdomen. The sterile field was prepared using chlorhexidine preparation of the skin and sterile draping. Local anesthesia superficial and deep was provided by local infiltration of 2% lidocaine. A 17g 100 mm radiofrequency introducer needle was placed to the planned anatomic targets guided with intermittent fluoroscopy with a perpendicular approach to terminally place at the junction of the superior articular process and the transverse process of the bilateral L4, L5, the base of the sacral ala on the bilateral for the L5 medial branch nerve and the area between base of the sacral ala to the S1 foramen bilaterally. The stylets were removed and radiofrequency probes with a 4mm active tip were then inserted. Needle tip position of the probes was verified in the AP, oblique, and lateral views. At each site, the medial branch nerve was stimulated at 2 Hz to a maximum 1-2 volts determined to finalize safe needle and electrode placement. The patient was awake and responsive during this portion of the procedure. Each target was anesthetized with 1-2 mL of 2 % Lidocaine for anesthesia for lesioning and then each target was lesioned at 80 degrees Celsius for 2 minutes and 30 seconds. Tissue impedances were noted to be between 250 and 500 Ohms. There was no unusual discomfort expressed by Susanna. The needles were withdrawn without difficulty and bandages placed over the needle placement sites, the patient was observed and was without hemodynamic, neurologic, or allergic reactions. Fluoroscopic images were digitally archived. POST PROCEDURE EVALUATION: IMPRESSION: 1. Summary of procedure. Medication given is documented in the MAR. 2. Follow up plan: Susanna to contact [facility] as needed.?This procedure may be repeated if the patient achieves at least 50% improvement in pain/function for at least 6 months. 3. Estimated Blood Loss: <5 mls 4. Fluoroscopy time: Documented in the EMR. Follow up plans and appointments were discussed with the Susanna. Post procedure instruction was given as documented in nursing documentation and having met discharge criteria, Susanna was discharged from the [facility]. COMMENTS: No apparent complications. Post-procedure pain: VAS= 0/10. I personally completed the entire procedure. ALESSIO HOWELL DO, MPH ABPM&R - Subspecialty board certification in Pain Medicine [facility] [facility]
--- NOTE | 2023-01-29 09:20 | DI.RAD_ITS ---
Exam(s) XR PAIN CLINIC LUMBAR SP 2V EXAM: XR PAIN CLINIC LUMBAR SP 2V CLINICAL HISTORY: Dx: Lumbar Spondylosis TECHNIQUE: 2D and realtime digital imaging was performed. CONTRAST MATERIAL: Refer to procedure report. COMPARISON: No exams were available for comparison FINDINGS: Fluoroscopy was provided for Dr. Howell during the performance of a lumbar radiofrequency ablation. P lease refer to the procedure report for complete details. Ka,r=13.6 mGy IMPRESSION:
[2023-01-29] MEDS: methylPREDNISolone ACETATE 40 MG/ML VIAL IJ (09:28)
[2023-01-29] MEDS: Lidocaine 2% Pres-Free 5 ML VIAL IJ (09:28)
[2023-01-29] MEDS: Bupivacaine 0.5% Pres-Free 10 ML VIAL IJ (09:29)
== END 2023-01-29 07:25 | disposition home or self-care (01) ==
PROVIDERS: PCP Nurse Practitioner Family; Visit Provider Preventive Medicine Occupational Medicine
DX: M54.50 Low back pain, unspecified (principal); M47.817 Spondylosis without myelopathy or radiculopathy, lumbosacral region
CPT/HCPCS: 00123; 64635; 64636; 72100; J1030; J2250; J3010

== ENCOUNTER 2023-03-19 19:06 | Outpatient (REF) | payer MEDICARE, SELFPAY ==
[2023-03-19 15:24] LABS: Anion Gap 11.4 mmol/L (3-11); BUN 15 mg/dL (7-18); CO2 28.6 mmol/L (21.0-32.0); CREATININE 0.7 mg/dL (0.55-1.02); Calcium 9.6 mg/dL (8.5-10.1); Chloride 99 mmol/L (98-107); Estimated GFR 87.37 (mL/min/1.73m2); Glucose 127 mg/dL (74-106); Sodium 139 mmol/L (136-145)
[2023-03-19 15:31] LABS: Potassium 2.8 mmol/L (3.5-5.1)
[2023-03-19 15:50] LABS: Calculated LDL 175 mg/dL (<100); Cholesterol 258 mg/dL (<200); HDL Cholesterol 53 mg/dL (40-60); Triglyceride 154 mg/dL (<150)
[2023-03-19 16:58] LABS: Magnesium 1.8 mg/dL (1.8-2.4)
== END 2023-03-19 19:07 | disposition home or self-care (01) ==
LOC: NCHCN 19:06
PROVIDERS: PCP Nurse Practitioner Family; Visit Provider Nurse Practitioner Family
DX: I10 Essential (primary) hypertension (principal); E87.6 Hypokalemia
CPT/HCPCS: 80048; 80061; 83735

== ENCOUNTER 2023-03-21 09:08 | Outpatient (REF) | payer MEDICARE, SELFPAY ==
[2023-03-21 15:27] LABS: Anion Gap 10.7 mmol/L (3-11); BUN 19 mg/dL (7-18); CO2 27.3 mmol/L (21.0-32.0); CREATININE 0.9 mg/dL (0.55-1.02); Calcium 9.8 mg/dL (8.5-10.1); Chloride 102 mmol/L (98-107); Estimated GFR 64.63 (mL/min/1.73m2); Glucose 125 mg/dL (74-106); Potassium 3.3 mmol/L (3.5-5.1); Sodium 140 mmol/L (136-145)
== END 2023-03-21 09:09 | disposition home or self-care (01) ==
LOC: NCHCN 09:08
PROVIDERS: PCP Nurse Practitioner Family; Visit Provider Nurse Practitioner Family
DX: I10 Essential (primary) hypertension (principal); E87.6 Hypokalemia; R79.89 Other specified abnormal findings of blood chemistry
CPT/HCPCS: 80048

== ENCOUNTER 2023-06-24 19:36 | Outpatient (REF) | payer MEDICARE, SELFPAY ==
[2023-06-24 20:03] LABS: BUN 22 mg/dL (7-18); Calcium 9.2 mg/dL (8.5-10.1); Chloride 102 mmol/L (98-107); Estimated GFR 56.95 (mL/min/1.73m2); Glucose 135 mg/dL (74-106); Potassium 3.4 mmol/L (3.5-5.1); Sodium 140 mmol/L (136-145)
== END 2023-06-24 19:37 | disposition home or self-care (01) ==
LOC: NCHCN 19:36
PROVIDERS: PCP Nurse Practitioner Family; Visit Provider Nurse Practitioner Family
DX: I10 Essential (primary) hypertension (principal)
CPT/HCPCS: 80048

== ENCOUNTER → 2023-07-03 01:51 | Outpatient (CLI) | payer MEDICARE, SELFPAY ==
--- NOTE | 2023-07-03 07:30 | DI.US_ITS ---
APPROVED REPORT EXAM: Comprehensive 2D, Doppler, and color-flow Echocardiogram Patient Location: Out-Patient Marine Diver: Jagdish Bautista RDCS (AE) Indications: New systolic murmur, ? aortic stenosis Conclusion Normal left ventricular wall thickness and chamber size. EF is 60 to 65%. Wall motion is normal Normal right ventricular size and function Both atria are normal in size There are no structural valvular abnormalities Mild tricuspid regurgitation with an estimated right ventricular systolic pressure of 41 mmHg Wall motion Left Ventricle The left ventricle is normal size. The left ventricular systolic function is normal. The left ventric ular ejection fraction is within the normal range. There is normal left ventricular wall thickness. T here is normal LV segmental wall motion. There is no ventricular septal defect visualized. LVEF is 62 -65%. Right Ventricle The right ventricle is normal size. The right ventricular systolic function is normal. Atria The left atrium size is normal. The right atrium size is normal. The interatrial septum is intact wit h no evidence for an atrial septal defect. Aortic Valve The aortic valve is normal in structure. There is no aortic valvular stenosis. No aortic regurgitatio n is present. Mitral Valve The mitral valve is normal in structure. No evidence of mitral valve stenosis. Trace mitral regurgita tion. Tricuspid Valve The tricuspid valve is normal in structure. There is no tricuspid valve stenosis. Mild tricuspid regu rgitation. The RVSP is 41.0mmHg. Pulmonic Valve The pulmonary valve is normal in structure. There is no pulmonic valvular stenosis. Trivial pulmonic regurgitation. Great Vessels The aortic root is normal in size. The ascending aorta is normal Aortic arch is normal in caliber. IV C is normal in size and collapses >50% with inspiration. Pericardium There is no pericardial effusion. 2D Dimensions IVSD d PLAX 0.59 cm F: 0.6-1.0 Ao Root d 2.67 cm F: 2.7 - 3.3 LVPW d PLAX 0.60 cm F: 0.6 - 1.0 Ao Asc Diam d 3.27 cm F: 2.3 - 3.1 LVID d PLAX 5.47 cm F: 3.8 - 5.2 LVDs 3.53 cm F: 2.2 - 3.5 LV EF Teichholz 64.2 % FS 35.40 % LV EDV (Teich) 145.7 mL LV ESV (Teich) 52.1 mL Stroke Vol Index (Teich) 54.72 M-Mode TAPSE 2.11 cm (M/F) >1.7 Auto EF LV EDV A4C 61.2 mL LV EDV A2C 73.4 mL LV EDV BP 66.7 mL LV ESV A4C 23.3 mL LV ESV A2C 28.0 mL LV ESV BP 25.7 mL LVEF(%) A4C 61.9 % LVEF(%) A2C 61.9 % LVEF(%) BP 61.5 % LV SV A4C 37.9 ml LV SV A2C 45.4 ml LV SV BP 41.0 ml LV CO A4C 3.3 L/min LV CO A2C 4.0 L/min LV CO BP 3.6 L/min HR A4C 86.33 BPM HR A2C 87.17 BPM LV EDV Index (BP) LA Volume LA Length A4C 3.8 cm LA Length A2C 4.2 cm LA Area A4C s 11.37 cm2 LA Area A2C s 10.01 cm2 LA Vol A4C A-L 29.04 mL LA Vol A2C A-L 20.20 mL LA Vol Biplane A-L 25.6 mL LA Vol/BSA A4C A-L LA Vol/BSA A2C A-L LA Vol/BSA BP A-L 14.9 mL/m2 LA Vol A4C MOD 27.6 mL LA Vol A2C MOD 17.8 mL LA Vol BP MOD 22.7 mL RA Volume RA Area A4C 5.9 cm2 RA ESV A4C (A-L) 9.7mL RA Vol/BSA A4C A-L RA Length A4C 3.1 cm RA ESV A4C (MOD) 9.1mL LV Diastology MV E' medial 0.073 (>0.07 m/s) MV E Vmax 0.85 (0.4-1.3 m/s) MV E/E' MED 11.70 (<14) MV A Vmax 1.15 (0.4-1.3 m/s) MV E' lateral 0.067 (>0.1 m/s) E/A Ratio 0.7 MV E/E' LAT 12.72 (<14) MV E' Average 0.070 m/s MV E/E'(average) 12.19 Aortic Valve AoV Vmax 1.41 m/s LVOT Vmax 1.05 m/s AoV Peak Grad 7.9 mmHg LVOT Peak Grad 4.4 mmHg AoV Area (Vmax) 1.90 cm2 LVOT VTI 0.160 m AoV VTI 0.265 m LVOT Mean Grad 2.1 mmHg AoV Mean Amilcar. 0.93 m/s LVOT SV 40.71 mL AoV Mean Grad 4.0 mmHg LVOT Diam s 1.80 cm AoV Area (VTI) 1.53 cm2 Velocity Ratio 0.74 Pulmonary Valve PV Vmax 1.15 (0.5-1.5 m/s) RVOT Vmax 0.80 m/s PV Peak Grad 5.3 mmHg RVOT Peak Gr. 2.6 mmHg PV Mean Amilcar 0.87 m/s RVOT VTI 0.126 m PV Mean Grad 3.2 mmHg RVOT Mean Gr. 1.6 mmHg Tricuspid Valve RA Pressure 3.00 mmHg TR Vmax 3.08 m/s TR Peak Grad 38.0 mmHg RVSP (TR) 41.0 mmHg
== END ==
PROVIDERS: PCP Nurse Practitioner Family; Visit Provider Nurse Practitioner Family
DX: R01.1 Cardiac murmur, unspecified (principal); I35.0 Nonrheumatic aortic (valve) stenosis; I36.1 Nonrheumatic tricuspid (valve) insufficiency
CPT/HCPCS: 93306

== ENCOUNTER 2023-09-22 13:20 | Outpatient (REF) | payer MEDICARE, SELFPAY ==
[2023-09-22 18:11] LABS: Hemoglobin A1C 5.7 % (<5.7)
[2023-09-22 18:43] LABS: ALT 78 U/L (14-59); AST 61 U/L (15-37); Albumin 4.3 g/dL (3.4-5.0); Alkaline Phosphatase 119 U/L (46-116); Anion Gap 12.3 mmol/L (3-11); BUN 18 mg/dL (7-18); Bilirubin, Total 0.86 mg/dL (0.2-1.0); CO2 27.7 mmol/L (21.0-32.0); CREATININE 0.9 mg/dL (0.55-1.02); Calcium 9.5 mg/dL (8.5-10.1); Chloride 101 mmol/L (98-107); Estimated GFR 64.63 (mL/min/1.73m2); Glucose 116 mg/dL (74-106); Potassium 3.6 mmol/L (3.5-5.1); Sodium 141 mmol/L (136-145); Total Protein 7.6 g/dL (6.4-8.2)
== END 2023-09-22 13:21 | disposition home or self-care (01) ==
LOC: NCHCN 13:20
PROVIDERS: PCP Nurse Practitioner Family; Visit Provider Physician Assistant Medical
DX: I10 Essential (primary) hypertension (principal); R73.9 Hyperglycemia, unspecified
CPT/HCPCS: 80053; 83036

== ENCOUNTER 2023-12-16 10:29 | Outpatient (REF) | payer MEDICARE, SELFPAY ==
[2023-12-16 15:16] LABS: HCT 40.3 % (36.0-46.0); MCH 33.7 pg (27.0-33.0); MCHC 34.7 % (32.0-36.0); MCV 97 fL (80-95); MPV 10.8 fL (8.0-11.0); Platelet Count 217 10^3/uL (130-400); RBC 4.16 10^6/uL (3.93-5.22); RDW 13.2 % (11.7-14.6); RDW-SD 46.8 fL
[2023-12-16 16:13] LABS: ALT 69 U/L (14-59); AST 54 U/L (15-37); Albumin 4.1 g/dL (3.4-5.0); Alkaline Phosphatase 122 U/L (46-116); Anion Gap 12.2 mmol/L (3-11); BUN 17 mg/dL (7-18); Bilirubin, Total 1.07 mg/dL (0.2-1.0); CO2 26.8 mmol/L (21.0-32.0); CREATININE 0.9 mg/dL (0.55-1.02); Calcium 9.6 mg/dL (8.5-10.1); Chloride 103 mmol/L (98-107); Estimated GFR 64.23 (mL/min/1.73m2); Glucose 136 mg/dL (74-106); Potassium 3.3 mmol/L (3.5-5.1); Sodium 142 mmol/L (136-145); Total Protein 7.7 g/dL (6.4-8.2)
== END 2023-12-16 10:30 | disposition home or self-care (01) ==
LOC: NCHCN 10:29
PROVIDERS: PCP Nurse Practitioner Family; Visit Provider Physician Assistant Medical
DX: R74.01 Elevation of levels of liver transaminase levels (principal)
CPT/HCPCS: 80053; 85027

== ENCOUNTER 2024-01-14 00:36 | Outpatient (CLI) | payer MEDICARE, SELFPAY ==
--- NOTE | 2024-01-14 | DI.US_ITS ---
Exam(s) US ABDOMEN LIMITED EXAM: US ABDOMEN LIMITED CLINICAL HISTORY: ELEVATION OF LEVELS OF LIVER TRANSAMINASE, R74.01 TECHNIQUE: Ultrasound abdomen performed using standard protocol. COMPARISON: CT CT ABDOMEN PELVIS W from 06/03/2020 FINDINGS: Exam somewhat limited by patient body habitus. LIVER: Mildly enlarged 17 cm in length. Increased echogenicity and decreased through transmission co nsistent with moderate hepatic steatosis. No focal liver lesions are seen. GALLBLADDER: No evidence of cholelithiasis. No evidence of wall thickening. No pericholecystic fluid identified. MCINTYRE'S SIGN: Negative. BILIARY SYSTEM: No intrahepatic or extrahepatic biliary ductal dilation. Right kidney: No evidence of renal calculi. No evidence of hydronephrosis. No renal mass or cyst iden tified. PANCREAS: Normal where visualized. ABDOMINAL AORTA AND IVC: Visualized portions normal caliber. ASCITES: None seen. IMPRESSION: Moderate hepatic steatosis. No focal liver lesion. No biliary dilatation. DATA REPOSITORY:
== END 2024-01-14 00:56 ==
LOC: DI 00:36
PROVIDERS: PCP Nurse Practitioner Family; Visit Provider Physician Assistant Medical
DX: K76.0 Fatty (change of) liver, not elsewhere classified (principal)
CPT/HCPCS: 76705

== ENCOUNTER 2024-03-22 16:42 | Outpatient (REF) | payer MEDICARE, SELFPAY ==
[2024-03-22 18:53] LABS: ALT 88 U/L (14-59); AST 68 U/L (15-37); Albumin 4.2 g/dL (3.4-5.0); Alkaline Phosphatase 129 U/L (46-116); Bilirubin, Direct 0.2 mg/dL (0.0-0.2); Bilirubin, Total 0.78 mg/dL (0.2-1.0); Total Protein 7.7 g/dL (6.4-8.2)
== END 2024-03-22 16:43 | disposition home or self-care (01) ==
LOC: NCHCN 16:42
PROVIDERS: Visit Provider Physician Assistant Medical
DX: R74.01 Elevation of levels of liver transaminase levels (principal)
CPT/HCPCS: 80076

== ENCOUNTER 2024-07-07 11:43 | Outpatient (REF) | payer MEDICARE, SELFPAY ==
[2024-07-07 16:11] LABS: ALT 116 U/L (14-59); AST 91 U/L (15-37); Albumin 4.5 g/dL (3.4-5.0); Alkaline Phosphatase 126 U/L (46-116); Anion Gap 14.1 mmol/L (3-11); BUN 23 mg/dL (7-18); Bilirubin, Total 1.1 mg/dL (0.2-1.0); CO2 26.9 mmol/L (21.0-32.0); CREATININE 0.9 mg/dL (0.55-1.02); Chloride 99 mmol/L (98-107); Estimated GFR 64.23 (mL/min/1.73m2); GGT 70 U/L (5-55); Glucose 112 mg/dL (74-106); Potassium 3.2 mmol/L (3.5-5.1); Sodium 140 mmol/L (136-145); Total Protein 7.5 g/dL (6.4-8.2)
[2024-07-08 18:51] LABS: Hepatitis B Surface Ag Negative (Negative)
[2024-07-08 19:20] LABS: Hep A Total Ab w Rflx IgM Negative (Negative)
[2024-07-08 19:22] LABS: Hepatitis C Ab w Rflx HCV PCR Negative (Negative)
== END 2024-07-07 11:44 | disposition home or self-care (01) ==
LOC: NCHCN 11:43
PROVIDERS: Visit Provider Family Medicine
DX: R74.01 Elevation of levels of liver transaminase levels (principal)
CPT/HCPCS: 80053; 86709; 86803; 87340; 82977

== ENCOUNTER 2024-07-14 01:49 | Outpatient (CLI) | payer MEDICARE, SELFPAY ==
--- NOTE | 2024-07-14 | DI.US_ITS ---
Exam(s) US ABDOMEN LIMITED EXAM: US ABDOMEN LIMITED CLINICAL HISTORY: RUQ PAIN, R10.11 TECHNIQUE: Ultrasound abdomen performed using standard protocol. COMPARISON: US US ABDOMEN LIMITED from 01/14/2024 FINDINGS: PANCREAS: Normal where visualized. LIVER: There is diffuse increased echogenicity of the liver consistent with fatty infiltration. Hepa topetal flow in the Portal Vein. The liver measures in 18.3 cm length. No evidence of a hepatic mass. GALLBLADDER: No evidence of cholelithiasis. No evidence of wall thickening. No pericholecystic fluid identified. BILIARY SYSTEM: Common bile duct measures < 7 mm. No intrahepatic biliary ductal dilation. MCINTYRE'S SIGN: Negative. RIGHT KIDNEY: Kidney is normal in size. No evidence of renal calculi. No evidence of hydronephrosis. No renal mass or cyst identified. ASCITES: None seen. IMPRESSION: Mild hepatomegaly. Hepatic steatosis. DATA REPOSITORY:
== END 2024-07-14 02:09 ==
LOC: DI 01:49
PROVIDERS: Visit Provider Family Medicine
DX: R10.11 Right upper quadrant pain (principal)
CPT/HCPCS: 76705

== ENCOUNTER 2024-09-15 13:36 | Outpatient (REF) | payer MEDICARE, SELFPAY ==
[2024-09-15 17:21] LABS: HCT 38.0 % (36.0-46.0); HGB 13.2 g/dL (11.2-15.7); MCH 32.8 pg (27.0-33.0); MCHC 34.7 % (32.0-36.0); MCV 94 fL (80-95); MPV 10.5 fL (8.0-11.0); Platelet Count 199 10^3/uL (130-400); RBC 4.03 10^6/uL (3.93-5.22); RDW 13.2 % (11.7-14.6); RDW-SD 45.9 fL; WBC 5.84 10^3/uL (4.4-10.8)
[2024-09-15 17:46] LABS: Hemoglobin A1C 5.5 % (<5.7)
[2024-09-15 17:52] LABS: ALT 66 U/L (14-59); AST 55 U/L (15-37); Albumin 4.4 g/dL (3.4-5.0); Alkaline Phosphatase 116 U/L (46-116); Anion Gap 13.2 mmol/L (3-11); BUN 24 mg/dL (7-18); Bilirubin, Total 1.0 mg/dL (0.2-1.0); CO2 25.8 mmol/L (21.0-32.0); Calcium 9.6 mg/dL (8.5-10.1); Chloride 102 mmol/L (98-107); Estimated GFR 73.98 (mL/min/1.73m2); GGT 55 U/L (5-55); Glucose 120 mg/dL (74-106); Potassium 3.3 mmol/L (3.5-5.1); Sodium 141 mmol/L (136-145); Total Protein 7.2 g/dL (6.4-8.2)
== END 2024-09-15 13:37 | disposition home or self-care (01) ==
LOC: NCHCN 13:36
PROVIDERS: Visit Provider Physician Assistant Medical
DX: R74.01 Elevation of levels of liver transaminase levels (principal); R73.03 Prediabetes
CPT/HCPCS: 80053; 85027; 82977; 83036

== ENCOUNTER 2024-11-02 13:22 | Outpatient (CLI) | payer MEDICARE, SELFPAY ==
--- NOTE | 2024-11-02 | DI.MAMMO_ITS ---
Exam(s) MG MAMMO SCREENING 60 MIN DUR EXAM: MG MAMMO SCREENING 60 MIN DUR CLINICAL HISTORY: SCREENING,Z12.31 TECHNIQUE: Mammograms were interpreted according to the usual protocol including computer analysis with CAD system, tomosynthesis and C-view imaging. COMPARISON: 2015 through 2022 FINDINGS: The breasts are composed of scattered fibroglandular densities, Breast Density category B. No suspicious masses or suspicious microcalcifications are seen. No skin thickening or abnormal axillary lymph nodes are seen. There has been no significant change from prior exams. IMPRESSION: BI-RADS Category 1, Negative mammogram Continued annual screening should be based on patient's clinical status. Breast Density - Category B - There are scattered areas of fibroglandular density. Breast density Category C or D implies that the patient has dense breast tissue. Dense breast tissue can make it harder to find cancer on a mammogram. Dense breast tissue is also associated with an increased risk of breast cancer. This information about the result of the mammogram report was provided to the patient to raise their awareness. Use this report when you speak with the patient about their risks for breast cancer, which includes their family history. At that time, you may recommend additional screening tests (Ultrasound or MRI) as these tests may add significant information. A negative radiographic report should not delay biopsy if a dominant or clinically suspicious mass is present. Up to ten percent of cancers are not identified on mammography. A negative report may reinforce clinical impression. Adenosis and dense breasts may obscure an underlying neoplasm. False positive reports average 6 to 10%. Patient will receive a letter notifying them of these results.
== END 2024-11-02 13:42 ==
LOC: DI 13:29
PROVIDERS: PCP Physician Assistant Medical; Visit Provider Physician Assistant Medical
DX: Z12.31 Encounter for screening mammogram for malignant neoplasm of breast (principal); R92.323 Mammographic fibroglandular density, bilateral breasts
CPT/HCPCS: 77063; 77067

== ENCOUNTER 2025-02-21 12:57 | Outpatient (REF) | payer MEDICARE, SELFPAY ==
[2025-02-21 16:03] LABS: HCT 40.1 % (36.0-46.0); HGB 13.7 g/dL (11.2-15.7); MCH 32.5 pg (27.0-33.0); MCHC 34.2 % (32.0-36.0); MCV 95 fL (80-95); MPV 10.7 fL (8.0-11.0); Platelet Count 229 10^3/uL (130-400); RBC 4.21 10^6/uL (3.93-5.22); RDW 13.3 % (11.7-14.6); RDW-SD 47.1 fL; WBC 4.85 10^3/uL (4.4-10.8)
[2025-02-21 16:34] LABS: ALT 49 U/L (10-49); AST 49 U/L (<34); Albumin 4.8 g/dL (3.2-5.0); Alkaline Phosphatase 111 U/L (46-116); Anion Gap 11.7 mmol/L (3-11); BUN 20 mg/dL (9-23); Bilirubin, Total 1.0 mg/dL (0.2-1.2); CO2 27.3 mmol/L (20.0-31.0); Calcium 10.1 mg/dL (8.3-10.6); Chloride 102 mmol/L (98-107); GGT 34 U/L (<38); Glucose 100 mg/dL (74-106); Potassium 3.6 mmol/L (3.5-5.1); Sodium 141 mmol/L (136-145); Total Protein 7.3 g/dL (5.7-8.2)
== END 2025-02-21 12:58 | disposition home or self-care (01) ==
LOC: NCHCN 12:57
PROVIDERS: PCP Physician Assistant Medical; Visit Provider Physician Assistant Medical
DX: R74.01 Elevation of levels of liver transaminase levels (principal)
CPT/HCPCS: 80053; 85027; 82977